=== PATIENT | female | born 1945 | race Caucasian/White ===

== ENCOUNTER → 2017-01-01 | Outpatient (REF) | payer MEDICARE ==
[~2017-01-01] MED LIST: AMIT10TA PO; ASPI1TAB PO; CLON0.5T PO; DULC10SU2 PR; DULO30CA PO; FLEEENE4 PR; FLUC100T PO; FLUC150T PO; LISI-538 PO; MEGE40TA PO; MICR10CA PO; REQU1TAB14 PO; RISP0.5T16 PO; ROPI0.25 PO; SENN8.6T7 PO; VESI5TAB PO
== END ==
LOC: M LAB REF 16:43
PROVIDERS: ATTEND Nurse Practitioner Family
DX: M54.5 Low back pain (principal); R82.99 Other abnormal findings in urine

== ENCOUNTER → 2017-03-10 | Outpatient (REF) | payer MEDICARE ==
[~2017-03-10] MED LIST changes: -MEGE40TA PO; +MEGE40TA18 PO
[2017-03-11 14:18] LABS: SJOGREN'S ANTI SS-A <0.2 AI (0.0-0.9); SJOGREN'S ANTI SS-B <0.2 AI (0.0-0.9)
== END ==
LOC: M LAB REF 13:34
PROVIDERS: ATTEND Nurse Practitioner Adult Health
DX: I73.00 Raynaud's syndrome without gangrene (principal)

== ENCOUNTER 2017-04-18 12:18 | Inpatient (IN) | payer MEDICARE ==
[~2017-04-18] VITALS: Ht 154.9 cm; Wt 35.9 kg
[2017-04-18] VITALS (11 sets, daily range): BP systolic 122–162; BP diastolic 62–117
[~2017-04-18 12:18] MED LIST changes: -RISP0.5T16 PO; +RISP0.5T21 PO; -VESI5TAB PO; +VESI5TAB2 PO
[2017-04-18] MEDS ORDERED: MIRT15TA3 (12:39)
[2017-04-18] MEDS ORDERED: ROPI0.25 (12:39)
[2017-04-18] MEDS ORDERED: DONE5TAB17 (12:39)
[2017-04-18] MEDS ORDERED: ONDANSETRON 4MG/2ML VIAL (J2405) As Ordered ONE (12:45)
[2017-04-18 13:00] LABS: BASO % 0.3 % (0.0-1.0); EOS % 0.2 % (0.0-3.0); LARGE UNSTAINED CELL % 0.5 % (0.0-4.0); LYMPH # 0.7 K/mm3 (1.5-4.5); LYMPH % 11.3 % (24.0-44.0); MONO # 0.2 K/mm3 (0.0-0.8); MONO % 3.6 % (0.0-5.0); NEUTROPHILS # 4.9 K/mm3 (1.8-7.7); NEUTROPHILS % 84.2 % (36.0-66.0); PLATELET COUNT, AUTOMATED 183 k/mm3 (150-450); RED CELL DISTRIBUTION WIDTH 12.6 % (11.5-14.5); WHITE BLOOD COUNT 5.8 K/mm3 (4.0-10.0)
--- NOTE | 2017-04-18 13:07 | REP ---
Chest one-view HISTORY: Altered mental status Comparison: 03/04/2015 Patchy density is present in the right lower lobe consistent with atelectasis or infiltrate. The left lung is clear. The heart is normal in size. The pulmonary vasculature is normal in appearance. Impression: Right lower lobe atelectasis or infiltrate. Signed by Soto Cruz MD 04/18/2017 12:59 P
[2017-04-18 13:10] LABS: ALBUMIN 3.6 GM/DL (3.2-5.2); ALBUMIN/GLOBULIN RATIO 1.24 (1.00-1.93); ALKALINE PHOSPHATASE 108 U/L (45-117); ALT/SGPT 24 U/L (12-78); ANION GAP 9 MEQ/L (8-16); AST/SGOT 22 U/L (15-37); BILIRUBIN,DIRECT 0.1 MG/DL (0.0-0.2); BILIRUBIN,TOTAL 0.4 MG/DL (0.2-1.0); BLOOD UREA NITROGEN 18 MG/DL (7-18); CARBON DIOXIDE LEVEL 27 MEQ/L (21-32); CHLORIDE LEVEL 103 MEQ/L (98-107); CREATININE FOR GFR 0.64 MG/DL (0.55-1.02); GLOMERULAR FILTRATION RATE > 60.0 (>39); GLUCOSE, FASTING 218 MG/DL (83-110); POTASSIUM SERUM 3.3 MEQ/L (3.5-5.1); SODIUM LEVEL 139 MEQ/L (136-145); TOTAL PROTEIN 6.5 GM/DL (6.4-8.2)
[2017-04-18] MEDS ORDERED: ONDANSETRON 4MG/2ML VIAL (J2405) IV ONE (13:15)
[2017-04-18] MEDS ORDERED: IPRATROPIUM 0.5MG/ALBUTEROL 2.5MG INH SOL UD 3ML (DUONEB)(J7620) NEB ONE (13:15)
[2017-04-18 13:21] LABS: METHADONE URINE NEGATIVE (NEGATIVE)
[2017-04-18 13:21] LABS: ABG BASE EXCESS 0.8 (-2.0-2.0); ABG HCO3 27.4 MEQ/L (22.0-26.0); ABG PARTIAL PRESSURE CO2 51.4 mmHg (35.0-45.0); ABG PARTIAL PRESSURE O2 58.5 mmHg (75.0-100.0); ABG TOTAL CO2 28.9 MEQ/L (23.0-31.0); ABG pH (ARTERIAL) 7.344 UNITS (7.350-7.450)
[2017-04-18] MEDS ORDERED: PATIENT COMMENT (13:53)
[2017-04-18] MEDS ORDERED: ROPI0.25 PO (13:53)
[2017-04-18] MEDS ORDERED: MIRT15TA3 PO (13:53)
[2017-04-18] MEDS ORDERED: DULO1CAP3 PO (13:53)
[2017-04-18] MEDS ORDERED: SENN8.6T7 PO (13:53)
[2017-04-18] MEDS ORDERED: DONE5TAB17 PO (13:53)
[2017-04-18] MEDS ORDERED: CLON0.5T PO (13:53)
[2017-04-18] MEDS ORDERED: DULC5TAB PO (13:53)
[2017-04-18] MEDS ORDERED: PIPERACILLIN/TAZOBACTAM SOD 3.375 GM in D5W MINI-BAG PLUS 50 ML IV ONE (14:00)
--- NOTE | 2017-04-18 14:31 | REP ---
CT HEAD WITHOUT CONTRAST: HISTORY: Altered mental status. COMPARISON: 03/04/2016 Areas of decreased attenuation are present in the periventricular and subcortical white matter. This represents small vessel ischemic disease. There is no intraparenchymal hemorrhage, mass or midline shift. The ventricular system and cortical sulci are dilated consistent with mild volume loss. There is no extracerebral collection. The visualized sinuses are clear. IMPRESSION: 1. Small vessel ischemic disease. 2. Mild volume loss. Signed by Soto Cruz MD 04/18/2017 02:43 P
--- NOTE | 2017-04-18 14:33 | REP ---
CT CERVICAL SPINE WITHOUT CONTRAST: HISTORY: Altered mental status. There is no acute fracture or subluxation. Disc bulges are present at the C2-3 through C6-7 levels. There is minimal narrowing of the spinal canal. The neural foramina are patent. The intervertebral discs are normal in height. IMPRESSION: 1. There is no acute fracture or subluxation. 2. There is cervical spondylosis at the C2-3 through C6-7 levels. Signed by Soto Cruz MD 04/18/2017 02:43 P
[2017-04-18 15:17] LABS: ABG BASE EXCESS -0.6 (-2.0-2.0); ABG HCO3 24.6 MEQ/L (22.0-26.0); ABG PARTIAL PRESSURE CO2 42.6 mmHg (35.0-45.0); ABG PARTIAL PRESSURE O2 141.2 mmHg (75.0-100.0); ABG TOTAL CO2 25.9 MEQ/L (23.0-31.0)
[2017-04-18] MEDS: D5W/0.9% SODIUM CHLORIDE 1,000 ML IV SCH (17:06)
--- NOTE | 2017-04-18 17:12 | REP ---
Chest one-view HISTORY: Shortness of breath Comparison: 04/18/2017 Patchy density is present in the right lower lobe consistent with an infiltrate that is increased compared to the previous study. The left lung is clear. The heart is normal in size. The pulmonary vasculature is normal in appearance. Impression: Right lower lobe infiltrate increased compared to the previous study. Signed by Soto Cruz MD 04/18/2017 05:04 P
[2017-04-18 17:42] LABS: ABG HCO3 22.5 MEQ/L (22.0-26.0); ABG PARTIAL PRESSURE CO2 37.7 mmHg (35.0-45.0); ABG PARTIAL PRESSURE O2 294.3 mmHg (75.0-100.0); ABG STANDARD HCO3 22.8 MEQ/L (22.0-26.0); ABG TOTAL CO2 23.6 MEQ/L (23.0-31.0); ABG pH (ARTERIAL) 7.393 UNITS (7.350-7.450)
[2017-04-18] MEDS: PANTOPRAZOLE 40MG INJ (PROTONIX) (C9113) IV SCH (17:58)
[2017-04-18] MEDS: methylPREDNISolone INJ 40 MG/1 ML VIAL (J2920) IV SCH (17:59)
[2017-04-18] MEDS ORDERED: KCL 10MEQ IN 100ML SWI (KRUN) 10 MEQ in APPROPRIATE DILUENT 1 EA IV ONE ×2 (18:00)
[2017-04-18] MEDS: IPRATROPIUM 0.5MG/ALBUTEROL 2.5MG INH SOL UD 3ML (DUONEB)(J7620) NEB SCH (19:33)
--- NOTE | 2017-04-18 19:33 | ECGEPIP ---
Stationary ECG Study [facility] - ED Test Date: 2017-04-18 Pat Name: JORDI HERRERA Department: Room: - Gender: F [employer] Manager: TRENT : 1945 Requested By: JANNETH Blum Order Number: [id number] Reading MD: Yvette Luciano Measurements Intervals [place] Rate: 76 P: 82 VA: 133 QRS: 18 QRSD: 90 T: 87 QT: 334 QTc: 377 Interpretive Statements SINUS RHYTHM WITH SINUS ARRHYTHMIA NONSPECIFIC T-WAVE ABNORMALITY BASELINE ARTIFACT AND WANDERING MAY AFFECT READING DELAYED R WAVE PROGRESSION CW 03/04/15 RATE DCEREASED Electronically Signed On 04-18-2017 19:33:03 EDT by Yvette Luciano
[2017-04-18] MEDS: AMPICILLIN SOD/SULBACTAM SOD 1.5 GM in D5W MINI-BAG PLUS 50 ML IV SCH (20:51)
[2017-04-18] MEDS: CHLORHEXIDINE GLUCONATE 0.12 % 15ML UDC (PERIDEX ORAL RINSE) MT SCH (20:51)
[2017-04-18] MEDS: HEPARIN SOD (PORCINE) 5000 UNITS/ML VIAL SC SCH (21:00)
--- NOTE | 2017-04-18 21:08 | HPE ---
DATE OF ADMISSION: 04/18/2017 CRITICAL CARE NOTE HISTORY AND PHYSICAL: I was called to the emergency department to evaluate this 71-year-old female found earlier in the day by her daughter with whom she lives. The patient was face-down on the kitchen floor in a pool of vomitus. She has dementia which waxes and wanes but has had no prior similar episodes. Her past medical history in addition to dementia includes Parkinson's disease and a history of tobacco use. In the emergency department, her oxygen levels were found low. Continuous positive airway pressure (C-PAP) was applied with initial good result. However, attempts to change back to supplemental oxygen were unsuccessful and were met with falling oxygen saturations. OBJECTIVE: GENERAL: At bedside, she is ill-appearing, cachectic, elderly-appearing woman. VITAL SIGNS: Temperature 97, pulse rate 93, respirations 18, blood pressure 186/75. She is nonverbal, purposeful Boaz coma scale of 12. HEENT: Her pupils are midline and reactive. Oral and nasal mucosa are dry. NECK: Neck is supple with limited range of motion. There is no meningismus. Jugular veins are not distended. HEART: Sounds are regular, somewhat distant. LUNGS: Breath sounds globally diminished with dullness in the right base and some scattered rhonchi. The patient's chest is markedly kyphotic and there is limited respiratory excursion with respiratory efforts. Chest is increased in its AP diameter. ABDOMEN: Soft. There are bowel sounds in the right lower quadrant. There is no palpable mass. EXTREMITIES: Are cool. Pulses are difficult but palpable. There is evidence of muscle wasting. LABORATORY DATA: Diagnostic studies were reviewed: Her sodium is 139, potassium 3.3, chloride 103 , CO2 27, BUN 18, creatinine 0.64, glucose is 218, lactic acid 2.4, calcium is 9 with an albumin of 3.6, bilirubin 0.4, AST of 22, ALT 24, alkaline phosphatase 108, troponin less than 0.02. Ammonia level was less than 10. White cell count is 5.8, hemoglobin 13.1, hematocrit 39.7, platelet count 183,000. Differential white cell count shows 84% neutrophils. Toxicology was negative for opiates, benzodiazepines, alcohol, acetaminophen, salicylates. An arterial blood gas showed a pH 7.34, pCO2 of 51, pO2 58, this on C-PAP with 100% entrained oxygen. IMAGING: Chest x-ray initially showed a new right lower lobe infiltrate in the pericardiac region. Other lobes of the lungs were clear. We obtained a subsequent chest x-ray now which shows progression of the infiltrate with significant increase and involvement of the right lower lobe, possibly right middle lobe and some accentuation of the vascular markings. There is also increase in the gastric air bubble. ASSESSMENT: 1. The primary problem requiring critical attention is acute hypoxic respiratory failure secondary to an episode of aspiration pneumonia with progression on chest x-rays. The progression has been limited to the right lower lobe for the most part; however, the patient is at significant risk for acute respiratory distress syndrome (ARDS) and further respiratory failure. Will initiate noninvasive positive pressure ventilation at this point and recheck an arterial blood gas. 2. Possible drug overdose/ingestion. The patient's daughter also found her medication bottles empty. They were near empty previously. She believes the patient may have ingested the remainder of her pills. Of concern would be Remeron, Klonopin and ropinirole. Urine is, however, negative for benzodiazepines. Close observation will be necessary. 4. She is mildly hypokalemic; will replace potassium and recheck electrolytes. 5. As she will be immobile for the next interval of time, will initiate deep venous thrombosis (DVT) prophylaxis with subcutaneous heparin. 6. Ulcer prophylaxis will be provided in light of her critical illness with IV Protonix. 7. Glycemic control is a question. She is not known to be a diabetic. Her blood sugar was elevated, likely related to stress. Will continue to monitor this. I have reviewed the case with the emergency department physician and the intensive care unit (ICU) staff. We will now facilitate transfer to the intensive care unit for close clinical monitoring. The patient's condition is critical. Prognosis is guarded. I have updated the patient's family who are aware of her prognosis. 87 minutes were spent in the provision of bedside critical care and coordination , exclusive of any time for the performance of procedures. Edited: chu 06/23/2017 1055 MTDD
[2017-04-19] VITALS (18 sets, daily range): BP systolic 110–161; BP diastolic 55–101; O2SAT 95
[2017-04-19] MEDS: AMPICILLIN SOD/SULBACTAM SOD 1.5 GM in D5W MINI-BAG PLUS 50 ML IV SCH ×4 (01:37→20:01)
[2017-04-19 04:50] LABS: LARGE UNSTAINED CELL # 0.1 K/mm3 (0.0-0.4); LARGE UNSTAINED CELL % 0.8 % (0.0-4.0); LYMPH # 0.6 K/mm3 (1.5-4.5); LYMPH % 3.9 % (24.0-44.0); MEAN CORPUSCULAR HEMOGLOBIN 30.3 pg (27.0-33.0); MEAN CORPUSCULAR HGB CONC 33.5 g/dl (32.0-36.5); MEAN CORPUSCULAR VOLUME 90.7 fl (80.0-96.0); MONO # 0.3 K/mm3 (0.0-0.8); MONO % 2.3 % (0.0-5.0); NEUTROPHILS # 13.8 K/mm3 (1.8-7.7); PLATELET COUNT, AUTOMATED 209 k/mm3 (150-450); RED CELL DISTRIBUTION WIDTH 12.5 % (11.5-14.5); WHITE BLOOD COUNT 14.9 K/mm3 (4.0-10.0)
[2017-04-19 04:53] LABS: ALKALINE PHOSPHATASE 83 U/L (45-117); ALT/SGPT 20 U/L (12-78); ANION GAP 10 MEQ/L (8-16); AST/SGOT 18 U/L (15-37); BILIRUBIN,TOTAL 0.7 MG/DL (0.2-1.0); BLOOD UREA NITROGEN 21 MG/DL (7-18); CALCIUM LEVEL 8.9 MG/DL (8.8-10.2); CARBON DIOXIDE LEVEL 26 MEQ/L (21-32); CHLORIDE LEVEL 104 MEQ/L (98-107); CHOLESTEROL LEVEL 141 MG/DL (< 200); CREATININE FOR GFR 0.71 MG/DL (0.55-1.02); GLOMERULAR FILTRATION RATE > 60.0 (>39); GLUCOSE, FASTING 173 MG/DL (83-110); PHOSPHORUS LEVEL 3.3 MG/DL (2.5-4.9); POTASSIUM SERUM 4.3 MEQ/L (3.5-5.1); SODIUM LEVEL 140 MEQ/L (136-145); TRIGLYCERIDES LEVEL 58 MG/DL (<150)
[2017-04-19 05:31] LABS: ABG BASE EXCESS 2.5 (-2.0-2.0); ABG HCO3 26.6 MEQ/L (22.0-26.0); ABG PARTIAL PRESSURE CO2 39.1 mmHg (35.0-45.0); ABG PARTIAL PRESSURE O2 181.9 mmHg (75.0-100.0); ABG STANDARD HCO3 26.8 MEQ/L (22.0-26.0); ABG TOTAL CO2 27.8 MEQ/L (23.0-31.0)
[2017-04-19] MEDS: HEPARIN SOD (PORCINE) 5000 UNITS/ML VIAL SC SCH ×3 (05:32→21:28)
--- NOTE | 2017-04-19 07:29 | REP ---
Portable chest, 04/19/2017, 07:01 a.m., single AP view the patient semi upright: Comparison 04/18/2017. The previous infiltrate identified inferiorly in the right lung has decreased in density and size. The remainder of the right lung is clear. Left lung is clear. Cardiac size appears normal. The patient is rotated. There are no pleural effusions. Impression: The right lung infiltrate has improved. Signed by Mason Barakat MD 04/19/2017 07:20 A
[2017-04-19] MEDS: IPRATROPIUM 0.5MG/ALBUTEROL 2.5MG INH SOL UD 3ML (DUONEB)(J7620) NEB SCH ×4 (08:00→20:16)
[2017-04-19] MEDS: CHLORHEXIDINE GLUCONATE 0.12 % 15ML UDC (PERIDEX ORAL RINSE) MT SCH (08:19)
[2017-04-19] MEDS: PANTOPRAZOLE 40MG INJ (PROTONIX) (C9113) IV SCH (08:20)
[2017-04-19] MEDS: methylPREDNISolone INJ 40 MG/1 ML VIAL (J2920) IV SCH (08:20)
[2017-04-19] MEDS: D5W/0.9% SODIUM CHLORIDE 1,000 ML IV SCH (12:52)
[2017-04-20] MEDS: AMPICILLIN SOD/SULBACTAM SOD 1.5 GM in D5W MINI-BAG PLUS 50 ML IV SCH ×4 (01:21→19:56)
[2017-04-20 05:00] VITALS: BP 184/82
[2017-04-20 05:17] LABS: BASO % 0.1 % (0.0-1.0); EOS % 0.1 % (0.0-3.0); LARGE UNSTAINED CELL # 0.2 K/mm3 (0.0-0.4); LARGE UNSTAINED CELL % 1.5 % (0.0-4.0); LYMPH # 1.3 K/mm3 (1.5-4.5); LYMPH % 11.5 % (24.0-44.0); MEAN CORPUSCULAR HEMOGLOBIN 30.6 pg (27.0-33.0); MEAN CORPUSCULAR HGB CONC 33.8 g/dl (32.0-36.5); MEAN CORPUSCULAR VOLUME 90.6 fl (80.0-96.0); MONO # 0.5 K/mm3 (0.0-0.8); MONO % 4.4 % (0.0-5.0); NEUTROPHILS # 8.6 K/mm3 (1.8-7.7); NEUTROPHILS % 82.4 % (36.0-66.0); PLATELET COUNT, AUTOMATED 164 k/mm3 (150-450); RED CELL DISTRIBUTION WIDTH 12.8 % (11.5-14.5); WHITE BLOOD COUNT 10.4 K/mm3 (4.0-10.0)
[2017-04-20] MEDS: HEPARIN SOD (PORCINE) 5000 UNITS/ML VIAL SC SCH ×3 (05:31→22:22)
[2017-04-20] MEDS: D5W/0.9% SODIUM CHLORIDE 1,000 ML IV SCH ×2 (05:31→23:46)
[2017-04-20 05:45] LABS: ALBUMIN 2.7 GM/DL (3.2-5.2); ALBUMIN/GLOBULIN RATIO 0.84 (1.00-1.93); ALKALINE PHOSPHATASE 69 U/L (45-117); ALT/SGPT 20 U/L (12-78); ANION GAP 5 MEQ/L (8-16); AST/SGOT 26 U/L (15-37); BILIRUBIN,TOTAL 0.4 MG/DL (0.2-1.0); BLOOD UREA NITROGEN 18 MG/DL (7-18); CALCIUM LEVEL 8.8 MG/DL (8.8-10.2); CARBON DIOXIDE LEVEL 28 MEQ/L (21-32); CHLORIDE LEVEL 108 MEQ/L (98-107); CHOLESTEROL LEVEL 138 MG/DL (< 200); CREATININE FOR GFR 0.52 MG/DL (0.55-1.02); GLOMERULAR FILTRATION RATE > 60.0 (>39); GLUCOSE, FASTING 98 MG/DL (83-110); PHOSPHORUS LEVEL 2.3 MG/DL (2.5-4.9); SODIUM LEVEL 141 MEQ/L (136-145); TOTAL PROTEIN 5.9 GM/DL (6.4-8.2); TRIGLYCERIDES LEVEL 93 MG/DL (<150)
[2017-04-20] MEDS: IPRATROPIUM 0.5MG/ALBUTEROL 2.5MG INH SOL UD 3ML (DUONEB)(J7620) NEB SCH ×4 (07:50→20:05)
[2017-04-20 08:00] VITALS: BP 172/88
--- NOTE | 2017-04-20 08:03 | REP ---
Portable chest, 04/20/2017, 07:19 a.m., single AP view the patient semi upright: Comparison is 04/19/2017. The patient is rotated. The infiltrate inferiorly in the right lung is unchanged. The remainder of the right lung is clear. Visualized left lung is clear. Cardiac size is normal. Impression: No interval change. Patient rotated. Signed by Mason Barakat MD 04/20/2017 07:54 A
[2017-04-20] MEDS: PANTOPRAZOLE 40MG INJ (PROTONIX) (C9113) IV SCH (08:45)
[2017-04-20] MEDS: methylPREDNISolone INJ 40 MG/1 ML VIAL (J2920) IV SCH (08:45)
[2017-04-20] MEDS: ACETAMINOPHEN TAB 650MG DOSE (2X325MG) PO PRN (11:57)
[2017-04-20 12:00] VITALS: BP 166/78
[2017-04-20 16:00] VITALS: BP 158/72
--- NOTE | 2017-04-20 16:32 | IPN ---
DATE: 04/20/2017 Ms. Chi has no complaints of pain, chest pain, shortness of breath this morning. She does not know the year. She thinks it is 2019. She does not know the current president. She does know she is at [facility] in [place] , and she knows that she has pneumonia, although she forgets it intermittently. Temperature is 99.4, pulse 80, respiratory rate 18, blood pressure 172/88, 96% on room air. Intake and output notable for a positive fluid balance of 720. Weight is 44.2 kg. She is awake and answering questions. No acute distress. Breathing is symmetrical, diminished throughout. Inspiratory to expiratory (I-to-E) ratio is 1:3. No wheezes. Heart is distant sounding. Radial pulses 2+. Capillary refill is less than 2 seconds. Abdomen soft, doughy, nontender. White cell count 10.4, hemoglobin 12, platelets of 164. BUN 18, creatinine 0.52. CK 220. Blood cultures negative at 48 hours. ASSESSMENT: This is a 71-year-old with acute hypoxic respiratory failure status post aspiration pneumonia, thought possibly related to unintentional overdose. PLAN: 1. Respiratory failure. Patient has aspiration pneumonia and is continued on antibiotics. It has improved. Has been seen by speech therapy today and is thought to have impaired swallow, which could possibly complicate her presentation. She did have elevated temperature. Blood cultures have been negative. Continue current therapy. 2. Patient was thought to possibly have unintentional drug overdose and likely has dementia. Will possibly require placement. 3. Patient has hypokalemia, which has resolved. 4. The patient's blood glucose was elevated during the course of her stay. Appears to be more reasonably controlled currently. 5. Deep vein thrombosis (DVT) prophylaxis is in the form of subcutaneous heparin. MTDD
[2017-04-20 20:00] VITALS: BP 171/86
[2017-04-21] VITALS (7 sets, daily range): BP systolic 141–170; BP diastolic 58–98
[2017-04-21] MEDS: AMPICILLIN SOD/SULBACTAM SOD 1.5 GM in D5W MINI-BAG PLUS 50 ML IV SCH ×4 (02:00→21:21)
[2017-04-21 05:53] LABS: BASO % 0.2 % (0.0-1.0); EOS % 0.1 % (0.0-3.0); LARGE UNSTAINED CELL # 0.2 K/mm3 (0.0-0.4); LARGE UNSTAINED CELL % 1.5 % (0.0-4.0); LYMPH % 9.4 % (24.0-44.0); MEAN CORPUSCULAR HEMOGLOBIN 30.8 pg (27.0-33.0); MEAN CORPUSCULAR HGB CONC 34.4 g/dl (32.0-36.5); MEAN CORPUSCULAR VOLUME 89.5 fl (80.0-96.0); MONO # 0.5 K/mm3 (0.0-0.8); MONO % 4.7 % (0.0-5.0); NEUTROPHILS # 8.7 K/mm3 (1.8-7.7); PLATELET COUNT, AUTOMATED 212 k/mm3 (150-450); RED CELL DISTRIBUTION WIDTH 12.3 % (11.5-14.5); WHITE BLOOD COUNT 10.3 K/mm3 (4.0-10.0)
[2017-04-21 06:04] LABS: ALBUMIN 3.1 GM/DL (3.2-5.2); ALBUMIN/GLOBULIN RATIO 0.84 (1.00-1.93); ALKALINE PHOSPHATASE 82 U/L (45-117); ALT/SGPT 25 U/L (12-78); ANION GAP 7 MEQ/L (8-16); AST/SGOT 27 U/L (15-37); BILIRUBIN,TOTAL 0.5 MG/DL (0.2-1.0); BLOOD UREA NITROGEN 10 MG/DL (7-18); CALCIUM LEVEL 8.9 MG/DL (8.8-10.2); CARBON DIOXIDE LEVEL 28 MEQ/L (21-32); CHLORIDE LEVEL 104 MEQ/L (98-107); CHOLESTEROL LEVEL 168 MG/DL (< 200); CREATININE FOR GFR 0.48 MG/DL (0.55-1.02); GLOMERULAR FILTRATION RATE > 60.0 (>39); GLUCOSE, FASTING 97 MG/DL (83-110); PHOSPHORUS LEVEL 1.7 MG/DL (2.5-4.9); POTASSIUM SERUM 3.4 MEQ/L (3.5-5.1); SODIUM LEVEL 139 MEQ/L (136-145); TOTAL PROTEIN 6.8 GM/DL (6.4-8.2); TRIGLYCERIDES LEVEL 102 MG/DL (<150)
[2017-04-21] MEDS: HEPARIN SOD (PORCINE) 5000 UNITS/ML VIAL SC SCH ×3 (06:04→21:22)
--- NOTE | 2017-04-21 07:40 | REP ---
Portable chest, single AP view, the patient semi upright, 07:16 a.m.: Comparisons are 04/20/2017 and 04/19/2017. Focal and creased density is again noted inferiorly in the right lung compatible with infiltrate, unchanged. The patient is rotated. The lung martinez otherwise clear. Cardiac size normal. The laquita, mediastinum, and bony thorax are unremarkable. Impression: Persisting focal increased density inferiorly in the right lung. Patient rotated. Signed by Mason Barakat MD 04/21/2017 07:31 A
[2017-04-21] MEDS: methylPREDNISolone INJ 40 MG/1 ML VIAL (J2920) IV SCH (08:26)
[2017-04-21] MEDS: PANTOPRAZOLE 40MG INJ (PROTONIX) (C9113) IV SCH (08:26)
[2017-04-21] MEDS: K-PHOS ORIGINAL (POT.ACID PHOSPHATE) 500MG TAB PO SCH ×2 (08:27→11:57)
[2017-04-21] MEDS: IPRATROPIUM 0.5MG/ALBUTEROL 2.5MG INH SOL UD 3ML (DUONEB)(J7620) NEB SCH ×4 (09:04→19:16)
[2017-04-21 15:06] LABS: ANION GAP 7 MEQ/L (8-16); BLOOD UREA NITROGEN 12 MG/DL (7-18); CALCIUM LEVEL 9.2 MG/DL (8.8-10.2); CARBON DIOXIDE LEVEL 27 MEQ/L (21-32); CHLORIDE LEVEL 104 MEQ/L (98-107); CREATININE FOR GFR 0.58 MG/DL (0.55-1.02); GLOMERULAR FILTRATION RATE > 60.0 (>39); GLUCOSE, FASTING 150 MG/DL (83-110); PHOSPHORUS LEVEL 3.1 MG/DL (2.5-4.9); POTASSIUM SERUM 3.7 MEQ/L (3.5-5.1); SODIUM LEVEL 138 MEQ/L (136-145)
[2017-04-22] MEDS: AMPICILLIN SOD/SULBACTAM SOD 1.5 GM in D5W MINI-BAG PLUS 50 ML IV SCH ×4 (02:08→20:19)
[2017-04-22 05:45] LABS: BASO % 0.3 % (0.0-1.0); EOS % 0.1 % (0.0-3.0); LARGE UNSTAINED CELL # 0.1 K/mm3 (0.0-0.4); LARGE UNSTAINED CELL % 1.7 % (0.0-4.0); LYMPH # 1.6 K/mm3 (1.5-4.5); MEAN CORPUSCULAR HGB CONC 33.5 g/dl (32.0-36.5); MEAN CORPUSCULAR VOLUME 89.7 fl (80.0-96.0); MONO # 0.4 K/mm3 (0.0-0.8); MONO % 5.7 % (0.0-5.0); NEUTROPHILS # 5.3 K/mm3 (1.8-7.7); NEUTROPHILS % 72.3 % (36.0-66.0); PLATELET COUNT, AUTOMATED 208 k/mm3 (150-450); RED CELL DISTRIBUTION WIDTH 12.6 % (11.5-14.5); WHITE BLOOD COUNT 7.3 K/mm3 (4.0-10.0)
[2017-04-22] MEDS: HEPARIN SOD (PORCINE) 5000 UNITS/ML VIAL SC SCH ×3 (05:56→22:08)
[2017-04-22 06:00] VITALS: BP 132/71
[2017-04-22 06:07] LABS: ALBUMIN 2.8 GM/DL (3.2-5.2); ALBUMIN/GLOBULIN RATIO 0.82 (1.00-1.93); ALKALINE PHOSPHATASE 72 U/L (45-117); ALT/SGPT 25 U/L (12-78); ANION GAP 6 MEQ/L (8-16); AST/SGOT 23 U/L (15-37); BILIRUBIN,TOTAL 0.5 MG/DL (0.2-1.0); BLOOD UREA NITROGEN 20 MG/DL (7-18); CALCIUM LEVEL 9.1 MG/DL (8.8-10.2); CARBON DIOXIDE LEVEL 29 MEQ/L (21-32); CHLORIDE LEVEL 109 MEQ/L (98-107); CHOLESTEROL LEVEL 157 MG/DL (< 200); CREATININE FOR GFR 0.61 MG/DL (0.55-1.02); GLOMERULAR FILTRATION RATE > 60.0 (>39); GLUCOSE, FASTING 85 MG/DL (83-110); PHOSPHORUS LEVEL 3.4 MG/DL (2.5-4.9); POTASSIUM SERUM 3.9 MEQ/L (3.5-5.1); SODIUM LEVEL 144 MEQ/L (136-145); TOTAL PROTEIN 6.2 GM/DL (6.4-8.2); TRIGLYCERIDES LEVEL 98 MG/DL (<150)
[2017-04-22] MEDS: IPRATROPIUM 0.5MG/ALBUTEROL 2.5MG INH SOL UD 3ML (DUONEB)(J7620) NEB SCH ×4 (07:29→19:49)
--- NOTE | 2017-04-22 09:04 | IPN ---
DATE: 04/21/2017 Ms. Chi has no complaints of pain this morning. She is able to tell me she is in the hospital in [place]. She can tell me that the president is the really rich man but cannot remember his name. She has no complaints of pain or chest pain. She is tolerating her diet but does not seem to be taking too much yesterday. Took some more today. Input and output notable for negative fluid status. Pulse 86, respiratory rate 18, blood pressure 162/58, 96% on room air. Temperature 98. She is awake at the time of my arrival. No acute distress. Breathing is symmetrically diminished with coarse upper airway sounds. No wheezes. Heart is distant sounding. Abdomens soft, doughy, nontender. White blood cell count 10.3, hemoglobin 13.7, platelets 212. BUN 12, creatinine 0.58, phosphorus level 3.1, potassium 3.7. Repeat chest x-ray today: Inferior right lower lobe infiltrate. ASSESSMENT: 71-year-old with acute hypoxic respiratory failure secondary to aspiration pneumonia, possibly non-intentional overdose. PLAN: 1. Respiratory failure. Patient had aspiration pneumonia. Continue antibiotics. Clinically improved. Did fail swallow evaluation. Is tolerating currently modified diet. 2. Patient had unintentional drug overdose and likely has dementia. Will require placement. 3. Patient has resolved hypokalemia and hypophosphatemia which was repleted today. 4. Patient has appropriate deep venous thrombosis (DVT) prophylaxis. 5. Patient can likely be transferred to the medical/surgical floor.
[2017-04-22] MEDS: PANTOPRAZOLE 40MG INJ (PROTONIX) (C9113) IV SCH (09:57)
[2017-04-22] MEDS: methylPREDNISolone INJ 40 MG/1 ML VIAL (J2920) IV SCH (09:57)
[2017-04-22 14:00] VITALS: BP 150/72
--- NOTE | 2017-04-22 17:52 | IPN ---
DATE: 04/22/2017 Miss Chi has no complaints this morning. She is not aware of where she is, but she is reminded that she is in the hospital. She cannot remember who the president is today. No complaints of pain, chest pain, shortness of breath. Has been requiring help with her diet. Temperature 98.7, pulse 63, respirations 16, blood pressure 132/71, 96% on room air. Intake and output (I and O) notable for negative fluid balance of -630. One bowel movement thus far today. She is awake, answering simple questions appropriately and following commands. Mucous membranes moist. Neck is supple. She has a fine tremor with some eye blinking, which appears to be somewhat excessive. Abdomen: Soft, doughy, nontender. White cell count 7.3, hemoglobin 12.3, BUN 20, creatinine 0.61. Pre-albumin 14.5. ASSESSMENT: 71-year-old with acute hypoxic respiratory failure secondary to aspiration pneumonia, possibly non-intentional overdose. PLAN: 1. Respiratory failure. The patient has aspiration pneumonia. Continue current antibiotics. Clinically improving. Failed swallow evaluation. Is on a modified diet with which she is requiring some prompting to take. 2. The patient with unintentional drug overdose and is thought to have dementia. Will require placement. 3. The patient has resolved hypokalemia. 4. The patient has indwelling Díaz catheter which will be removed today. 5. The patient has what would appear to be protein calorie malnutrition with relatively low BMI and low pre-albumin.
[2017-04-22 22:00] VITALS: BP 149/68
[2017-04-23] MEDS: AMPICILLIN SOD/SULBACTAM SOD 1.5 GM in D5W MINI-BAG PLUS 50 ML IV SCH ×4 (02:19→20:21)
[2017-04-23] MEDS: HEPARIN SOD (PORCINE) 5000 UNITS/ML VIAL SC SCH ×3 (05:43→22:00)
[2017-04-23 06:00] VITALS: BP 138/70
[2017-04-23 06:04] LABS: BASO % 0.2 % (0.0-1.0); EOS % 0.1 % (0.0-3.0); LARGE UNSTAINED CELL # 0.1 K/mm3 (0.0-0.4); LARGE UNSTAINED CELL % 2.5 % (0.0-4.0); LYMPH % 17.8 % (24.0-44.0); MEAN CORPUSCULAR HEMOGLOBIN 29.9 pg (27.0-33.0); MEAN CORPUSCULAR HGB CONC 33.4 g/dl (32.0-36.5); MEAN CORPUSCULAR VOLUME 89.4 fl (80.0-96.0); MONO # 0.4 K/mm3 (0.0-0.8); MONO % 6.6 % (0.0-5.0); NEUTROPHILS # 4.2 K/mm3 (1.8-7.7); NEUTROPHILS % 72.8 % (36.0-66.0); PLATELET COUNT, AUTOMATED 230 k/mm3 (150-450); RED CELL DISTRIBUTION WIDTH 12.2 % (11.5-14.5); WHITE BLOOD COUNT 5.8 K/mm3 (4.0-10.0)
[2017-04-23 06:29] LABS: ALKALINE PHOSPHATASE 67 U/L (45-117); ALT/SGPT 27 U/L (12-78); ANION GAP 6 MEQ/L (8-16); AST/SGOT 22 U/L (15-37); BILIRUBIN,TOTAL 0.5 MG/DL (0.2-1.0); BLOOD UREA NITROGEN 29 MG/DL (7-18); CALCIUM LEVEL 9.3 MG/DL (8.8-10.2); CARBON DIOXIDE LEVEL 29 MEQ/L (21-32); CHLORIDE LEVEL 105 MEQ/L (98-107); CHOLESTEROL LEVEL 178 MG/DL (< 200); CREATININE FOR GFR 0.57 MG/DL (0.55-1.02); GLOMERULAR FILTRATION RATE > 60.0 (>39); GLUCOSE, FASTING 92 MG/DL (83-110); PHOSPHORUS LEVEL 2.4 MG/DL (2.5-4.9); POTASSIUM SERUM 3.5 MEQ/L (3.5-5.1); SODIUM LEVEL 140 MEQ/L (136-145); TRIGLYCERIDES LEVEL 112 MG/DL (<150)
[2017-04-23] MEDS: IPRATROPIUM 0.5MG/ALBUTEROL 2.5MG INH SOL UD 3ML (DUONEB)(J7620) NEB SCH ×4 (07:26→19:35)
[2017-04-23] MEDS: methylPREDNISolone INJ 40 MG/1 ML VIAL (J2920) IV SCH (08:16)
[2017-04-23] MEDS: PANTOPRAZOLE 40MG INJ (PROTONIX) (C9113) IV SCH (08:16)
[2017-04-23 14:00] VITALS: BP 148/68
[2017-04-23 22:00] VITALS: BP 171/86
[2017-04-24] MEDS: AMPICILLIN SOD/SULBACTAM SOD 1.5 GM in D5W MINI-BAG PLUS 50 ML IV SCH ×4 (02:00→20:06)
[2017-04-24] MEDS: HEPARIN SOD (PORCINE) 5000 UNITS/ML VIAL SC SCH ×3 (05:42→22:00)
[2017-04-24 06:00] VITALS: BP 176/92
[2017-04-24 06:10] LABS: MEAN CORPUSCULAR HEMOGLOBIN 30.6 pg (27.0-33.0); MEAN CORPUSCULAR HGB CONC 34.1 g/dl (32.0-36.5); MEAN CORPUSCULAR VOLUME 89.7 fl (80.0-96.0); RED CELL DISTRIBUTION WIDTH 12.3 % (11.5-14.5); WHITE BLOOD COUNT 5.1 K/mm3 (4.0-10.0)
[2017-04-24] MEDS: IPRATROPIUM 0.5MG/ALBUTEROL 2.5MG INH SOL UD 3ML (DUONEB)(J7620) NEB SCH ×4 (08:00→19:24)
[2017-04-24] MEDS: methylPREDNISolone INJ 40 MG/1 ML VIAL (J2920) IV SCH (08:20)
[2017-04-24] MEDS: PANTOPRAZOLE 40MG INJ (PROTONIX) (C9113) IV SCH (08:20)
[2017-04-24 14:00] VITALS: BP 166/85
--- NOTE | 2017-04-24 21:32 | IPN ---
DATE OF SERVICE: 04/23/2017 Ms. Chi is more awake and interactive this morning. She has no complaints of pain. No chest pain. No shortness of breath. Temperature is 98.9, pulse 105, respiratory rate 18, blood pressure 148/68, 96% on room air. Intake and output (I and O) notable for positive fluid balance of 30 mL. Two bowel movements yesterday. She is awake, appropriately interactive. There is no lip smacking or eye blinking today. Minimal tremor and perhaps more so in her right upper extremity. Breathing is symmetrical, rested. I:E ratio is 1:3. Upper airway sounds. Heart is distant sounding, normal S1, S2. Abdomen soft, doughy, nontender. White cell count 5.8, hemoglobin 12.9, platelets 230, BUN 29, creatinine 0.57. Blood cultures are negative at 5 days. My assessment is as follows: This is a 71-year-old with acute hypoxic respiratory failure secondary to aspiration pneumonia, possibly non-intentional overdose. PLAN: 1. Respiratory failure. The patient is being treated for aspiration pneumonia. Continue antibiotics for now. Respiratory status has stabilized. She has failed swallow evaluation, is on a modified diet, which she is taking better today. 2. The patient with unintentional drug overdose and thought to have baseline dementia. Will require placement. 3. The patient has resolved electrolyte abnormality. 4. The patient has protein calorie malnutrition with low body mass index (BMI).
[2017-04-24 22:00] VITALS: BP 132/85
[2017-04-25] MEDS: AMPICILLIN SOD/SULBACTAM SOD 1.5 GM in D5W MINI-BAG PLUS 50 ML IV SCH ×4 (02:00→20:13)
[2017-04-25 06:00] VITALS: BP 157/79
[2017-04-25] MEDS: HEPARIN SOD (PORCINE) 5000 UNITS/ML VIAL SC SCH ×3 (06:24→20:13)
[2017-04-25] MEDS: IPRATROPIUM 0.5MG/ALBUTEROL 2.5MG INH SOL UD 3ML (DUONEB)(J7620) NEB SCH ×4 (07:27→19:25)
[2017-04-25] MEDS: PANTOPRAZOLE 40MG INJ (PROTONIX) (C9113) IV SCH (08:56)
[2017-04-25] MEDS: methylPREDNISolone INJ 40 MG/1 ML VIAL (J2920) IV SCH (08:56)
[2017-04-25 14:00] VITALS: BP 152/80
--- NOTE | 2017-04-25 15:00 | IPN ---
DATE: 04/24/2017 She is awake and answering questions this morning. She is not a good historian. She is not complaining of pain, chest pain, shortness of breath. She does not know who the President is today. Temperature is 98.3, pulse 70, respiratory rate 18, blood pressure 176/92. She is awake. Following simple commands. Somewhat flattened affect. No significant tremor noted today. Mucous membranes moist. Breathing is symmetrical, rested. Heart is distant sounding. She is thin appearing. Abdomen, soft, scaphoid. White cell count 5.1, hemoglobin 12.8, platelets 201. BUN 29, creatinine 0.57. ASSESSMENT: 71-year-old with acute hypoxic respiratory failure secondary to aspiration pneumonia, possibly unintentional overdose. She is on Unasyn. This would be day #5-6. Can likely discontinue Unasyn tomorrow. Patient with unintentional drug overdose. Though to have dementia. Is planned for placement. Patient has routine calorie malnutrition with low body mass index (BMI), low pre-albumin likely related to dementia and portends a relatively poor prognosis. Hypokalemia has resolved. MTDD
[2017-04-25 22:00] VITALS: BP 147/76
[2017-04-26] MEDS: AMPICILLIN SOD/SULBACTAM SOD 1.5 GM in D5W MINI-BAG PLUS 50 ML IV SCH ×3 (01:59→13:40)
[2017-04-26 06:00] VITALS: BP 154/78
[2017-04-26] MEDS: HEPARIN SOD (PORCINE) 5000 UNITS/ML VIAL SC SCH ×3 (06:00→20:16)
[2017-04-26] MEDS: IPRATROPIUM 0.5MG/ALBUTEROL 2.5MG INH SOL UD 3ML (DUONEB)(J7620) NEB SCH ×4 (07:15→19:45)
[2017-04-26] MEDS: PANTOPRAZOLE 40MG INJ (PROTONIX) (C9113) IV SCH (08:03)
[2017-04-26] MEDS: methylPREDNISolone INJ 40 MG/1 ML VIAL (J2920) IV SCH (08:03)
--- NOTE | 2017-04-26 12:13 | IPN ---
DATE: 04/25/2017 Ms. Chi says she is feeling better today. She feels stronger. She knows that she is in [place], [place]. She does not know she was in the hospital. She knew the President was Antonio Castillo. Temperature is 98.1, pulse 77, respiratory rate 18, blood pressure 157/79, 96% on room air. Intake and output (I's and O's) notable for positive fluid balance 370. No bowel movements noted. She is awake, answering questions appropriately. Was able to stand without assistance. Mucous membranes moist. Neck supple. She is thin appearing. Breathing is symmetrical. I-to-E ratio is 1:3. No wheezes, rales, or rhonchi. Heart is distant sounding. Normal S1, S2. Abdomen, soft, doughy, nontender. White cell count 5.1, hemoglobin 12.8, platelets 201. BUN 29, creatinine 0.57. My assessment is as follows: 71-year-old with acute hypoxic respiratory failure secondary to aspiration pneumonia and possibly nonintentional overdose. 1. Respiratory failure. Patient is being treated for aspiration pneumonia- plan to d/c antibiotics 04/27/17. Antibiotics will likely be discontinued. Currently on a modified diet for a failed swallow evaluation. She seems to be taking reasonable by mouth today. 2. Patient with unintentional drug overdose, thought to have baseline dementia. Plan is to pursue placement. 3. Patient has protein calorie malnutrition with low body mass index. 4. Patient has resolved electrolyte abnormality. MTDD
[2017-04-26 14:00] VITALS: BP 133/63
[2017-04-26] MEDS ORDERED: NEUTRA-PHOS 1.25 GM PACKET PO ONE (15:00)
[2017-04-26] MEDS: rOPINIRole 0.25 MG TAB(REQUIP) PO SCH ×2 (15:30→20:16)
[2017-04-26] MEDS: DONEPEZIL 5 MG TAB PO SCH (20:16)
--- NOTE | 2017-04-26 21:08 | IPN ---
DATE: 04/26/2017 Ms. Chi was feeling a little worse today. She knows that she is at the hospital at [facility], but is unable to tell me who the president is, but she can tell me that she was able to tell me who the president was yesterday, but just cannot remember today. She has no complaints of pain, chest pain, shortness of breath. She says that she has seen Dr. Moon in the past. Temperature 99.1, pulse 84, respiratory rate 18, blood pressure 133/63, 96% on room air. Intake and output notable for a positive fluid balance of 810. No bowel movements yesterday. She is awake, somewhat flat affect, answering simple questions with some pauses in her thought. Mucous membranes are moist. Neck is supple. Breathing is symmetrical. I:E ratio is 1:3. Heart is distant sounding, normal S1, S2. Abdomen soft, doughy, nontender. There is no significant lower extremity edema. White count 5.1, creatinine 0.57, phosphorous is 2.4. My assessment is as follows: 71-year-old with acute hypoxic respiratory failure secondary to aspiration pneumonia and possibly unintentional overdose. Plan is as follows: 1. Respiratory failure. Patient has been treated for aspiration pneumonia and is currently off antibiotics. Is on a modified diet for a failed swallow. She does have Parkinson's disease and appeared to be on Sinemet. Has a more notable right upper extremity tremor today. I have asked Dr. Brown to see the patient in consultation. 2. The patient has unintentional drug overdose thought to be related to baseline dementia. 3. The patient has protein calorie malnutrition with low body mass index. Will repeat a prealbumin this week. 4. The patient has hypophosphatemia which will be repleted.
[2017-04-26 22:00] VITALS: BP 148/88
[2017-04-27] MEDS: HEPARIN SOD (PORCINE) 5000 UNITS/ML VIAL SC SCH ×3 (05:11→20:04)
[2017-04-27 06:00] VITALS: BP 140/86
[2017-04-27 06:26] LABS: MEAN CORPUSCULAR HEMOGLOBIN 31.3 pg (27.0-33.0); MEAN CORPUSCULAR HGB CONC 34.1 g/dl (32.0-36.5); MEAN CORPUSCULAR VOLUME 91.9 fl (80.0-96.0); RED CELL DISTRIBUTION WIDTH 12.6 % (11.5-14.5)
[2017-04-27] MEDS: IPRATROPIUM 0.5MG/ALBUTEROL 2.5MG INH SOL UD 3ML (DUONEB)(J7620) NEB SCH ×4 (07:16→19:28)
[2017-04-27 07:38] LABS: ANION GAP 10 MEQ/L (8-16); BLOOD UREA NITROGEN 33 MG/DL (7-18); CALCIUM LEVEL 9.5 MG/DL (8.8-10.2); CARBON DIOXIDE LEVEL 28 MEQ/L (21-32); CHLORIDE LEVEL 111 MEQ/L (98-107); CREATININE FOR GFR 0.68 MG/DL (0.55-1.02); GLOMERULAR FILTRATION RATE > 60.0 (>39); GLUCOSE, FASTING 116 MG/DL (83-110); POTASSIUM SERUM 3.6 MEQ/L (3.5-5.1); SODIUM LEVEL 149 MEQ/L (136-145)
[2017-04-27] MEDS: rOPINIRole 0.25 MG TAB(REQUIP) PO SCH ×3 (09:19→20:04)
[2017-04-27] MEDS: predniSONE 20 MG TAB PO SCH (09:19)
[2017-04-27] MEDS: OMEPRAZOLE 20 MG CAP PO SCH (09:19)
[2017-04-27] MEDS: DOCUSATE SODIUM 100 MG CAP PO SCH ×2 (11:37→20:04)
--- NOTE | 2017-04-27 12:11 | IPNPDOC ---
Subjective Date Seen The patient was seen on 04/27/17. Subjective Chief Complaint/HPI The patient is a 71-year-old female admitted with a reason for visit of Acute Respiratory Failure W/Hypoxia. General: Reports: Fatigue, Malaise, Denies: ROS Unobtainable, Chills, Night Sweats, Normal Appetite, Other Symptoms Constitutional: Reports: Malaise, Fatigue, Denies: Chills, Fever, Night Sweats, Weakness, Weight Loss, Lethargy, Other Eyes: Denies: Pain, Vision change, Conjunctivae inflammation, Eyelid inflammation, Redness, Other ENT: Denies: Head Aches, Ear Pain, Dysphagia, Sinus Congestion, Post Nasal Drip , Sore Throat, Epistaxis, Other Symptoms Skin: Denies: Rash, Lesions, Jaundice, Bruising, Itching, Dry, Breakdown, Nail Changes, Other Pulmonary: Denies: Dyspnea, Cough, Pleuritic Chest Pain, Other Symptoms Cardiovascular: Denies: Chest Pain, Palpitations, Orthopnea, Paroxysmal Noc. Dyspnea, Edema, Lt Headedness, Other Symptoms Gastrointestinal: Denies: Nausea, Vomiting, Abdominal Pain, Diarrhea, Constipation, Melena, Hematochezia, Other Symptoms Objective Physical Examination General Exam: Positive: No Acute Distress Chest Exam: Positive: Clear to auscultation, Normal air movement Heart Exam: Positive: Rate Normal, Regular Rhythm Abdomen Exam: Positive: Normal bowel sounds, Soft, Negative: Tenderness Extremity Exam: Negative: Edema Psych Exam: Positive: Other (flat affect; slow to respond), Negative: Oriented x 3 Assessment /Plan Problems (1) Tremor Problem Specific Plan: Consult Specialist, Monitor Clinically Problem Text: PD? Follow as per neurology. Was on sinemet at home possibly. (2) Dysphagia Status: Chronic Problem Text: modified diet (3) Protein calorie malnutrition Status: Chronic Problem Specific Plan: Monitor Clinically (4) Aspiration pneumonia Status: Resolved (5) Dementia Status: Chronic Problem Specific Plan: Monitor Clinically Plan/VTE VTE Prophylaxis Ordered?: Yes Plan Diet: Continue Current Activity: Continue Current Therapy: PT Diagnostics: Repeat Labs in AM VS, I&O, 24H, Fishbone Vital Signs/I&O Vital Signs Date Time Temp Pulse Resp B/P (MAP) Pulse Ox O2 Delivery O2 Flow Rate FiO2 04/27/17 06:00 98.1 95 18 140/86 (104) 96 Room Air I&O- Last 24 Hours up to 6 AM 04/27/17 06:00 Intake Total 870 ml Balance 870 ml Laboratory Data 24H LABS Laboratory Tests 2 04/27/17 06:13: Anion Gap 10, Glomerular Filtration Rate > 60.0, Blood Urea Nitrogen 33H, Creatinine 0.68, Sodium Level 149H, Potassium Level 3.6, Chloride Level 111H, Carbon Dioxide Level 28, Calcium Level 9.5, Prealbumin 21.0 CBC/BMP Laboratory Tests 04/27/17 06:13 Red Blood Count 4.07, Mean Corpuscular Volume 91.9, Mean Corpuscular Hemoglobin 31.3, Mean Corpuscular Hemoglobin Concent 34.1, Red Cell Distribution Width 12.6 , Calcium Level 9.5 Microbiology Microbiology 04/18/17 Blood Culture - Final, Complete NO GROWTH AFTER 5 DAYS 04/18/17 Blood Culture - Final, Complete NO GROWTH AFTER 5 DAYS LAURA SLOAN MD Apr 27, 2017 12:11
[2017-04-27 14:00] VITALS: BP 142/74
[2017-04-27] MEDS: DONEPEZIL 5 MG TAB PO SCH (20:04)
[2017-04-27 22:00] VITALS: BP 150/94
[2017-04-28] MEDS: HEPARIN SOD (PORCINE) 5000 UNITS/ML VIAL SC SCH ×3 (05:31→21:59)
[2017-04-28 06:00] VITALS: BP 162/64
[2017-04-28 06:25] LABS: MEAN CORPUSCULAR HEMOGLOBIN 30.5 pg (27.0-33.0); MEAN CORPUSCULAR HGB CONC 32.6 g/dl (32.0-36.5); MEAN CORPUSCULAR VOLUME 93.5 fl (80.0-96.0); RED CELL DISTRIBUTION WIDTH 12.7 % (11.5-14.5); WHITE BLOOD COUNT 8.2 K/mm3 (4.0-10.0)
[2017-04-28 06:30] LABS: ANION GAP 7 MEQ/L (8-16); BLOOD UREA NITROGEN 41 MG/DL (7-18); CALCIUM LEVEL 9.5 MG/DL (8.8-10.2); CARBON DIOXIDE LEVEL 30 MEQ/L (21-32); CHLORIDE LEVEL 110 MEQ/L (98-107); CREATININE FOR GFR 0.66 MG/DL (0.55-1.02); GLOMERULAR FILTRATION RATE > 60.0 (>39); GLUCOSE, FASTING 129 MG/DL (83-110); POTASSIUM SERUM 3.8 MEQ/L (3.5-5.1); SODIUM LEVEL 147 MEQ/L (136-145)
[2017-04-28] MEDS: IPRATROPIUM 0.5MG/ALBUTEROL 2.5MG INH SOL UD 3ML (DUONEB)(J7620) NEB SCH ×4 (07:12→19:44)
[2017-04-28] MEDS: OMEPRAZOLE 20 MG CAP PO SCH (08:55)
[2017-04-28] MEDS: DOCUSATE SODIUM 100 MG CAP PO SCH ×2 (08:55→21:59)
[2017-04-28] MEDS: predniSONE 20 MG TAB PO SCH (08:55)
[2017-04-28] MEDS: rOPINIRole 0.25 MG TAB(REQUIP) PO SCH ×3 (08:55→21:59)
--- NOTE | 2017-04-28 10:36 | IPNPDOC ---
Subjective Date Seen The patient was seen on 04/28/17. Subjective Chief Complaint/HPI The patient is a 71-year-old female admitted with a reason for visit of Acute Respiratory Failure W/Hypoxia. General: Reports: ROS Unobtainable Objective Physical Examination General Exam: Positive: No Acute Distress Chest Exam: Positive: Clear to auscultation, Normal air movement Heart Exam: Positive: Rate Normal, Regular Rhythm Abdomen Exam: Positive: Normal bowel sounds, Soft, Negative: Tenderness Extremity Exam: Negative: Edema Psych Exam: Positive: Other (flat affect; slow to respond), Negative: Oriented x 3 Assessment /Plan Problems (1) Tremor Problem Specific Plan: Consult Specialist, Monitor Clinically Problem Text: Did not tolerate Sinemet at home. Continue Requip. Neurology c/s appreciated. (2) Dysphagia Status: Chronic Problem Text: modified diet (3) Protein calorie malnutrition Status: Chronic Problem Specific Plan: Monitor Clinically (4) Aspiration pneumonia Status: Resolved (5) Dementia Status: Chronic Problem Specific Plan: Monitor Clinically Problem Text: Lewy body dementia. Plan/VTE VTE Prophylaxis Ordered?: Yes Plan Diet: Continue Current Activity: Continue Current Therapy: PT Diagnostics: Repeat Labs in AM Will likely transition to ALC status in 24-48 hours, hoping for improvement in mentation. VS, I&O, 24H, Fishbone Vital Signs/I&O Vital Signs Date Time Temp Pulse Resp B/P (MAP) Pulse Ox O2 Delivery O2 Flow Rate FiO2 04/28/17 06:00 99.2 92 20 162/64 (96) 96 Room Air I&O- Last 24 Hours up to 6 AM 04/28/17 05:59 Intake Total 180 ml Balance 180 ml Laboratory Data 24H LABS Laboratory Tests 2 04/28/17 05:42: Anion Gap 7L, Glomerular Filtration Rate > 60.0, Blood Urea Nitrogen 41H, Creatinine 0.66, Sodium Level 147H, Potassium Level 3.8, Chloride Level 110H, Carbon Dioxide Level 30, Calcium Level 9.5 CBC/BMP Laboratory Tests 04/28/17 05:42 Red Blood Count 4.33, Mean Corpuscular Volume 93.5, Mean Corpuscular Hemoglobin 30.5, Mean Corpuscular Hemoglobin Concent 32.6, Red Cell Distribution Width 12.7 , Calcium Level 9.5 Microbiology Microbiology 04/18/17 Blood Culture - Final, Complete NO GROWTH AFTER 5 DAYS 04/18/17 Blood Culture - Final, Complete NO GROWTH AFTER 5 DAYS LAURA SLOAN MD Apr 28, 2017 10:36
[2017-04-28 14:00] VITALS: BP 142/72
[2017-04-28] MEDS: ACETAMINOPHEN TAB 650MG DOSE (2X325MG) PO PRN (16:25)
[2017-04-28] MEDS: DONEPEZIL 5 MG TAB PO SCH (21:59)
[2017-04-28 22:00] VITALS: BP 127/82
[2017-04-29] MEDS: ACETAMINOPHEN TAB 650MG DOSE (2X325MG) PO PRN (03:27)
[2017-04-29] MEDS: HEPARIN SOD (PORCINE) 5000 UNITS/ML VIAL SC SCH ×3 (05:27→23:42)
[2017-04-29 06:00] VITALS: BP 144/80
[2017-04-29 06:03] LABS: MEAN CORPUSCULAR HGB CONC 33.2 g/dl (32.0-36.5); MEAN CORPUSCULAR VOLUME 93.4 fl (80.0-96.0); RED CELL DISTRIBUTION WIDTH 12.7 % (11.5-14.5); WHITE BLOOD COUNT 14.5 K/mm3 (4.0-10.0)
[2017-04-29 06:14] LABS: ANION GAP 7 MEQ/L (8-16); BLOOD UREA NITROGEN 53 MG/DL (7-18); CALCIUM LEVEL 9.5 MG/DL (8.8-10.2); CARBON DIOXIDE LEVEL 30 MEQ/L (21-32); CHLORIDE LEVEL 112 MEQ/L (98-107); CREATININE FOR GFR 0.81 MG/DL (0.55-1.02); GLOMERULAR FILTRATION RATE > 60.0 (>39); GLUCOSE, FASTING 123 MG/DL (83-110); POTASSIUM SERUM 3.7 MEQ/L (3.5-5.1); SODIUM LEVEL 149 MEQ/L (136-145)
[2017-04-29] MEDS: IPRATROPIUM 0.5MG/ALBUTEROL 2.5MG INH SOL UD 3ML (DUONEB)(J7620) NEB SCH ×4 (07:23→19:49)
--- NOTE | 2017-04-29 08:52 | IPNPDOC ---
Subjective Date Seen The patient was seen on 04/29/17. Subjective Chief Complaint/HPI The patient is a 71-year-old female admitted with a reason for visit of Acute Respiratory Failure W/Hypoxia. General: Reports: ROS Unobtainable Objective Physical Examination General Exam: Positive: No Acute Distress Chest Exam: Positive: Clear to auscultation, Normal air movement Heart Exam: Positive: Rate Normal, Regular Rhythm Abdomen Exam: Positive: Normal bowel sounds, Soft, Negative: Tenderness Extremity Exam: Negative: Edema Psych Exam: Positive: Other (flat affect; not answering questions), Negative: Oriented x 3 Assessment /Plan Problems (1) Tremor Problem Specific Plan: Consult Specialist, Monitor Clinically Problem Text: Did not tolerate Sinemet at home. Continue Requip. Neurology c/s appreciated. (2) Dysphagia Status: Chronic Problem Text: modified diet (3) Protein calorie malnutrition Status: Chronic Problem Specific Plan: Monitor Clinically (4) Aspiration pneumonia Status: Resolved (5) Dementia Status: Chronic Problem Specific Plan: Monitor Clinically Problem Text: Lewy body dementia. (6) Fever Status: Acute Problem Specific Plan: Monitor Clinically, Repeat Labs, Repeat Tests Problem Text: with leukocytosis. BCx, UA, UCx, CXR pending Plan/VTE VTE Prophylaxis Ordered?: Yes Plan Diet: Continue Current Activity: Continue Current Therapy: PT Diagnostics: Repeat Labs in AM, Obtain Cultures, Xrays VS, I&O, 24H, Fishbone Vital Signs/I&O Vital Signs Date Time Temp Pulse Resp B/P (MAP) Pulse Ox O2 Delivery O2 Flow Rate FiO2 04/29/17 06:00 99.1 93 18 144/80 (101) 92 04/28/17 23:07 Room Air I&O- Last 24 Hours up to 6 AM 04/29/17 05:59 Intake Total 0 ml Balance 0 ml Laboratory Data 24H LABS Laboratory Tests 2 04/29/17 05:37: Anion Gap 7L, Glomerular Filtration Rate > 60.0, Blood Urea Nitrogen 53H, Creatinine 0.81, Sodium Level 149H, Potassium Level 3.7, Chloride Level 112H, Carbon Dioxide Level 30, Calcium Level 9.5 CBC/BMP Laboratory Tests 04/29/17 05:37 Red Blood Count 4.53, Mean Corpuscular Volume 93.4, Mean Corpuscular Hemoglobin 31.0, Mean Corpuscular Hemoglobin Concent 33.2, Red Cell Distribution Width 12.7 , Calcium Level 9.5 LAURA SLOAN MD Apr 29, 2017 08:52
[2017-04-29 08:57] VITALS: BP 147/79
[2017-04-29] MEDS: DOCUSATE SODIUM 100 MG CAP PO SCH ×2 (09:50→21:00)
[2017-04-29] MEDS: predniSONE 10 MG TAB PO SCH (09:50)
[2017-04-29] MEDS: rOPINIRole 0.25 MG TAB(REQUIP) PO SCH ×3 (09:50→21:00)
[2017-04-29] MEDS: OMEPRAZOLE 20 MG CAP PO SCH (09:50)
--- NOTE | 2017-04-29 10:21 | REP ---
REASON FOR EXAM: Leukocytosis and pyrexia. COMPARISON: Multiple, latest 04/21/2017. The technique utilized in obtaining the radiograph has magnified the cardiac silhouette and accentuated the interstitial markings. The opacity seen previously in the right lung base has cleared. No acute patchy parenchymal opacities or pleural effusions have developed. The lungs are essentially clear with evidence of mild fibrotic changes. The cardiomediastinal silhouette is unchanged. The heart is not enlarged. The pleural angles are sharp. The osseous structures stable and intact. IMPRESSION: No acute cardiopulmonary disease. Signed by Victor Hugo Flowers DO 04/29/2017 04:41 P
[2017-04-29 13:08] LABS: YEAST LIKE CELL URINE AUTO SMALL
[2017-04-29 14:00] VITALS: BP 162/79
[2017-04-29 18:38] VITALS: BP 168/83
[2017-04-29] MEDS: DONEPEZIL 5 MG TAB PO SCH (21:00)
[2017-04-29 22:00] VITALS: BP 154/86
--- NOTE | 2017-04-29 22:20 | REPUSA ---
Clinical history: Congestion. Comparison: None. Findings: The mediastinum and cardiac silhouette are within normal limits. The lungs are clear. No pl eural effusion or pneumothorax is seen. The osseous structures and soft tissues are unremarkable. Impression: No acute disease.
[2017-04-30] MEDS: HEPARIN SOD (PORCINE) 5000 UNITS/ML VIAL SC SCH ×3 (05:56→21:41)
[2017-04-30 06:00] VITALS: BP 136/88
[2017-04-30 06:06] LABS: MEAN CORPUSCULAR HEMOGLOBIN 30.2 pg (27.0-33.0); MEAN CORPUSCULAR HGB CONC 31.8 g/dl (32.0-36.5); MEAN CORPUSCULAR VOLUME 94.9 fl (80.0-96.0); RED CELL DISTRIBUTION WIDTH 12.8 % (11.5-14.5); WHITE BLOOD COUNT 15.8 K/mm3 (4.0-10.0)
[2017-04-30 06:29] LABS: ANION GAP 8 MEQ/L (8-16); BLOOD UREA NITROGEN 53 MG/DL (7-18); CALCIUM LEVEL 10.1 MG/DL (8.8-10.2); CARBON DIOXIDE LEVEL 29 MEQ/L (21-32); CHLORIDE LEVEL 120 MEQ/L (98-107); CREATININE FOR GFR 0.77 MG/DL (0.55-1.02); GLOMERULAR FILTRATION RATE > 60.0 (>39); GLUCOSE, FASTING 119 MG/DL (83-110); POTASSIUM SERUM 3.9 MEQ/L (3.5-5.1)
[2017-04-30 06:36] LABS: SODIUM LEVEL 157 MEQ/L (136-145)
[2017-04-30] MEDS ORDERED: NS 1,000 ML IV SCH (07:00)
[2017-04-30] MEDS: IPRATROPIUM 0.5MG/ALBUTEROL 2.5MG INH SOL UD 3ML (DUONEB)(J7620) NEB SCH ×4 (07:13→19:54)
[2017-04-30] MEDS: NS 0.45% 1,000 ML IV SCH ×2 (07:30→23:58)
[2017-04-30] MEDS ORDERED: cefTRIAXone SOD 1 GM in D5W MINI-BAG PLUS 50 ML IV SCH (08:00)
--- NOTE | 2017-04-30 08:38 | REP ---
CT of the chest without IV contrast: Comparisons are the chest CT of 09/02/2006 and portable chest of 04/29/2017. There is a tree in bud pattern in the lower lobes bilaterally compatible with bilateral lower lobe pneumonitis. There is a small right pleural effusion. These findings were not visible on the comparison portable plain film study. Cardiac size is normal. There is no mediastinal adenopathy. No axillary adenopathy. In the absence of IV contrast the study is insensitive for hilar adenopathy. The visualized upper abdominal contents are unremarkable. On the comparison CT there was a pancreatic cyst. The pancreas is not included in entirety on the current study. There is significant beam-hardening artifact throughout the entire study resulting in significant image degradation from the patient being scanned with arms at sides. Impression: Bilateral lower lobe tree in bud pattern compatible with lower lobe pneumonitis. The small right pleural effusion Signed by Mason Barakat MD 04/30/2017 08:30 A
--- NOTE | 2017-04-30 08:45 | IPNPDOC ---
Subjective Date Seen The patient was seen on 04/30/17. Subjective Chief Complaint/HPI The patient is a 71-year-old female admitted with a reason for visit of Acute Respiratory Failure W/Hypoxia. General: Reports: ROS Unobtainable Objective Physical Examination General Exam: Positive: No Acute Distress, Negative: Cooperative Chest Exam: Positive: Diminished Heart Exam: Positive: Rate Normal, Regular Rhythm Abdomen Exam: Positive: Normal bowel sounds, Soft, Negative: Tenderness Extremity Exam: Negative: Edema Psych Exam: Positive: Other (flat affect; not answering questions), Negative: Oriented x 3 Assessment /Plan Problems (1) Tremor Problem Specific Plan: Consult Specialist, Monitor Clinically Problem Text: Did not tolerate Sinemet at home. Continue Requip. Neurology c/s appreciated. (2) Dysphagia Status: Chronic Problem Text: concern for aspiration again. nothing by mouth - repeat swallow evaluation. (3) Protein calorie malnutrition Status: Chronic Problem Specific Plan: Monitor Clinically (4) Aspiration pneumonia Status: Acute Problem Text: NPO - repeat swallow evaluation pending (5) Dementia Status: Chronic Problem Specific Plan: Monitor Clinically Problem Text: Lewy body dementia. (6) Fever Status: Acute Problem Specific Plan: Monitor Clinically, Repeat Labs, Repeat Tests Problem Text: with leukocytosis. BCx, pending CXR suspicious for aspiration (7) Hypernatremia Status: Acute Problem Specific Plan: Monitor Clinically, Repeat Labs Problem Text: Likely secondary to inadequate free water intake. Started NS at 60 cc/hr. (8) Pneumonitis Status: Acute Problem Specific Plan: Monitor Clinically, Repeat Labs Plan/VTE VTE Prophylaxis Ordered?: Yes Plan Diet: Continue Current Activity: Continue Current Therapy: PT Diagnostics: Repeat Labs in AM Discussed at length with sister over the telephone. She will be discussing with her patient's daughter regarding further advanced directive, particularly feeding tube if needed. She feels patient would not want a feeding tube. VS, I&O, 24H, [place] Vital Signs/I&O Vital Signs Date Time Temp Pulse Resp B/P (MAP) Pulse Ox O2 Delivery O2 Flow Rate FiO2 04/30/17 06:00 98.9 100 24 136/88 (104) 90 Nasal Cannula 2.0 I&O- Last 24 Hours up to 6 AM 04/30/17 06:00 Intake Total 240 ml Output Total 0 ml Balance 240 ml Laboratory Data 24H LABS Laboratory Tests 2 04/29/17 12:42: Urine Appearance HAZY, Urine Color YELLOW, Urine pH 5.0, Urine Specific [place] 1.023, Urine Protein NEGATIVE, Urine Glucose (UA) NEGATIVE, Urine Ketones NEGATIVE, Urine Urobilinogen 0.2, Urine Bilirubin NEGATIVE, Urine Leukocyte Esterase NEGATIVE, Urine Blood NEGATIVE, Urine Nitrite NEGATIVE, Urine WBC (Auto ) 7H, Urine RBC (Auto) 5H, Urine Hyaline Casts (Auto) 0, Urine Bacteria (Auto) 1 +H, Urine Squamous Epithelial Cells 0, Urine Mucus (Auto) SMALL, Urine Yeast- Like Cells (Auto) SMALLH, Urine Sperm (Auto) , Urine Random Osmolality 782 04/30/17 05:29: Anion Gap 8, Glomerular Filtration Rate > 60.0, Blood Urea Nitrogen 53H, Creatinine 0.77, Sodium Level 157#H, Potassium Level 3.9, Chloride Level 120H, Carbon Dioxide Level 29, Calcium Level 10.1 CBC/BMP Laboratory Tests 04/30/17 05:29 Red Blood Count 4.92, Mean Corpuscular Volume 94.9, Mean Corpuscular Hemoglobin 30.2, Mean Corpuscular Hemoglobin Concent 31.8 L, Red Cell Distribution Width 12.8, Calcium Level 10.1 Microbiology Microbiology 04/29/17 Blood Culture, Received Pending 04/29/17 Blood Culture, Received Pending 04/29/17 Urine Culture, Received Pending LAURA SLOAN MD Apr 30, 2017 08:45
[2017-04-30] MEDS: OMEPRAZOLE 20 MG CAP PO SCH (08:54)
[2017-04-30] MEDS: MOM 30ML SUSPENSION UDC PO PRN (08:54)
[2017-04-30] MEDS: predniSONE 10 MG TAB PO SCH (08:55)
[2017-04-30] MEDS: rOPINIRole 0.25 MG TAB(REQUIP) PO SCH ×3 (08:55→21:00)
[2017-04-30] MEDS: DOCUSATE SODIUM 100 MG CAP PO SCH ×2 (08:55→21:00)
[2017-04-30] MEDS ORDERED: E-Z-PAQUE 96% w/w SUSP 176GM BTL As Ordered ONE (13:22)
[2017-04-30] MEDS ORDERED: VARIBAR PUDDING 40% w/v 230ML TUBE As Ordered ONE (13:22)
[2017-04-30] MEDS ORDERED: VARIBAR NECTAR 40% w/v 240ML SUSP BTL As Ordered ONE (13:22)
[2017-04-30 14:00] VITALS: BP 138/78
[2017-04-30] MEDS: ACETAMINOPHEN TAB 650MG DOSE (2X325MG) PO PRN (17:10)
[2017-04-30 17:42] LABS: ANION GAP 9 MEQ/L (8-16); BLOOD UREA NITROGEN 68 MG/DL (7-18); CALCIUM LEVEL 10.4 MG/DL (8.8-10.2); CARBON DIOXIDE LEVEL 30 MEQ/L (21-32); CHLORIDE LEVEL 117 MEQ/L (98-107); CREATININE FOR GFR 0.91 MG/DL (0.55-1.02); GLOMERULAR FILTRATION RATE > 60.0 (>39); GLUCOSE, FASTING 117 MG/DL (83-110); POTASSIUM SERUM 4.1 MEQ/L (3.5-5.1); SODIUM LEVEL 156 MEQ/L (136-145)
[2017-04-30] MEDS: DONEPEZIL 5 MG TAB PO SCH (21:00)
[2017-04-30 22:00] VITALS: BP 140/76
[2017-05-01] MEDS ORDERED: IPRATROPIUM 0.5MG/ALBUTEROL 2.5MG INH SOL UD 3ML (DUONEB)(J7620) NEB ONE (06:00)
[2017-05-01] MEDS: HEPARIN SOD (PORCINE) 5000 UNITS/ML VIAL SC SCH ×3 (06:00→22:12)
[2017-05-01 06:04] LABS: MEAN CORPUSCULAR HGB CONC 32.7 g/dl (32.0-36.5); MEAN CORPUSCULAR VOLUME 94.6 fl (80.0-96.0); RED CELL DISTRIBUTION WIDTH 12.7 % (11.5-14.5); WHITE BLOOD COUNT 18.6 K/mm3 (4.0-10.0)
[2017-05-01] MEDS: IPRATROPIUM 0.5MG/ALBUTEROL 2.5MG INH SOL UD 3ML (DUONEB)(J7620) NEB SCH ×4 (06:13→20:03)
[2017-05-01 06:32] LABS: ANION GAP 10 MEQ/L (8-16); BLOOD UREA NITROGEN 63 MG/DL (7-18); CALCIUM LEVEL 10.1 MG/DL (8.8-10.2); CARBON DIOXIDE LEVEL 29 MEQ/L (21-32); CHLORIDE LEVEL 119 MEQ/L (98-107); GLOMERULAR FILTRATION RATE > 60.0 (>39); GLUCOSE, FASTING 124 MG/DL (83-110); POTASSIUM SERUM 3.8 MEQ/L (3.5-5.1); SODIUM LEVEL 158 MEQ/L (136-145)
[2017-05-01 06:33] LABS: ABG BASE EXCESS 6.3 (-2.0-2.0); ABG HCO3 29.8 MEQ/L (22.0-26.0); ABG PARTIAL PRESSURE CO2 38.7 mmHg (35.0-45.0); ABG PARTIAL PRESSURE O2 61.7 mmHg (75.0-100.0); ABG STANDARD HCO3 30.1 MEQ/L (22.0-26.0); ABG pH (ARTERIAL) 7.504 UNITS (7.350-7.450)
[2017-05-01 08:00] VITALS: BP 139/71
--- NOTE | 2017-05-01 08:33 | IPNPDOC ---
Subjective Date Seen The patient was seen on 05/01/17. Subjective Chief Complaint/HPI The patient is a 71-year-old female admitted with a reason for visit of Acute Respiratory Failure W/Hypoxia. General: Reports: ROS Unobtainable Objective Physical Examination General Exam: Positive: No Acute Distress, Negative: Cooperative Chest Exam: Positive: Diminished, Other (rhonchorous bilateral breath sounds) Heart Exam: Positive: Rate Normal, Regular Rhythm Abdomen Exam: Positive: Normal bowel sounds, Soft, Negative: Tenderness Extremity Exam: Negative: Edema Psych Exam: Positive: Other (flat affect; not answering questions), Negative: Oriented x 3 Assessment /Plan Problems (1) Tremor Problem Specific Plan: Consult Specialist, Monitor Clinically Problem Text: Did not tolerate Sinemet at home. Continue Requip. Neurology c/s appreciated. (2) Dysphagia Status: Chronic Problem Text: concern for aspiration again. nothing by mouth - repeat swallow evaluation. (3) Protein calorie malnutrition Status: Chronic Problem Specific Plan: Monitor Clinically (4) Aspiration pneumonia Status: Acute Problem Text: NPO - repeat swallow evaluation pending. Now in further respiratory distress. Was transferred to ICU early this morning. Currently saturating well on 4L via nasal cannula. Decisions now being managed by daughter who wants aggressive treatment including intubation and feeding tube if needed. (5) Dementia Status: Chronic Problem Specific Plan: Monitor Clinically Problem Text: Lewy body dementia in the setting of Parkinsons Disease. (6) Fever Status: Acute Problem Specific Plan: Monitor Clinically, Repeat Labs, Repeat Tests Problem Text: Likely aspiration pneumonia. (7) Hypernatremia Status: Acute Problem Specific Plan: Monitor Clinically, Repeat Labs Problem Text: Likely secondary to inadequate free water intake. Continue with D51/2NS. (8) Pneumonitis Status: Acute Problem Specific Plan: Monitor Clinically, Repeat Labs Plan/VTE VTE Prophylaxis Ordered?: Yes Plan Diet: Make NPO Activity: Continue Current Therapy: PT Diagnostics: Repeat Labs in AM Patient with severe end-stage dementia now in respiratory failure likely secondary to aspiration pneumonia. Started Zosyn, MRSA screen pending. IV fluids, NPO, swallow evaluation pending for Wednesday. Discussed with sister and daughter. Daughter now to assume decision making, and would like full code including feeding tube if needed. VS, I&O, 24H, Fishbone Vital Signs/I&O Vital Signs Date Time Temp Pulse Resp B/P (MAP) Pulse Ox O2 Delivery O2 Flow Rate FiO2 05/01/17 08:00 22 95 Venturi Mask 15.0 55 05/01/17 07:20 97.7 04/30/17 22:00 96 140/76 (97) I&O- Last 24 Hours up to 6 AM 05/01/17 06:00 Intake Total 300 ml Output Total 0 ml Balance 300 ml Laboratory Data 24H LABS Laboratory Tests 2 04/30/17 17:03: Anion Gap 9, Glomerular Filtration Rate > 60.0, Blood Urea Nitrogen 68H, Creatinine 0.91, Sodium Level 156H, Potassium Level 4.1, Chloride Level 117H, Carbon Dioxide Level 30, Calcium Level 10.4H 05/01/17 05:47: Anion Gap 10, Glomerular Filtration Rate > 60.0, Blood Urea Nitrogen 63H, Creatinine 0.80, Sodium Level 158H, Potassium Level 3.8, Chloride Level 119H, Carbon Dioxide Level 29, Calcium Level 10.1, Total Creatine Kinase 96, Creatine Kinase MB 1.0, Creatine Kinase MB Relative Index 1.04, Troponin I < 0.02 05/01/17 06:18: Blood Gas Bicarbonate Standard 30.1H, Arterial Blood pH 7.504H, Arterial Blood Partial Pressure CO2 38.7, Arterial Blood Partial Pressure O2 61.7L, Arterial Blood Total CO2 31.0, Arterial Blood HCO3 29.8H, Arterial Blood Base Excess 6.3H , Arterial Blood Oxygen Saturation 93.5L CBC/BMP Laboratory Tests 04/30/17 17:03 Calcium Level 10.4 H 05/01/17 05:47 Calcium Level 10.1, Red Blood Count 4.72, Mean Corpuscular Volume 94.6, Mean Corpuscular Hemoglobin 31.0, Mean Corpuscular Hemoglobin Concent 32.7, Red Cell Distribution Width 12.7 Microbiology Microbiology 04/29/17 Blood Culture - Preliminary, Resulted No growth after 24 hours . All specim... 04/29/17 Blood Culture - Preliminary, Resulted No growth after 24 hours . All specim... 04/29/17 Urine Culture - Final, Complete Escherichia Coli LAURA SLOAN MD May 01, 2017 08:33
--- NOTE | 2017-05-01 08:35 | REP ---
REASON: Decreased breath sounds and hypoxia. COMPARISON: Two days ago. The technique utilized in obtaining the radiograph has magnified the cardiac silhouette and accentuated the interstitial markings. There is partial silhouetting out of the diaphragmatic surface of the left lung. There is a possible patchy right lower lobe opacity. There is artifact from external air sampling and monitoring lead strewn about the chest decreasing the sensitivity of the exam. There are no other significant changes. IMPRESSION: Possible basilar pneumonia. Signed by Victor Hugo Flowers DO 05/01/2017 10:37 A
[2017-05-01] MEDS: rOPINIRole 0.25 MG TAB(REQUIP) PO SCH ×3 (09:00→20:58)
[2017-05-01] MEDS: D5W/0.45% SODIUM CHLORIDE 1,000 ML IV SCH (09:14)
[2017-05-01] MEDS: PIPERACILLIN/TAZOBACTAM SOD 4.5 GM in D5W MINI-BAG PLUS 50 ML IV SCH ×3 (09:20→19:42)
[2017-05-01] MEDS: PANTOPRAZOLE 40MG INJ (PROTONIX) (C9113) IV SCH (09:24)
[2017-05-01 09:47] LABS: MYOGLOBIN 340 NG/ML (13-71)
[2017-05-01] MEDS: ACETAMINOPHEN 650 MG SUPP PR PRN (10:30)
[2017-05-01 12:00] VITALS: BP 154/115
[2017-05-01 15:28] LABS: ABG HCO3 28.3 MEQ/L (22.0-26.0); ABG PARTIAL PRESSURE CO2 37.4 mmHg (35.0-45.0); ABG STANDARD HCO3 28.8 MEQ/L (22.0-26.0); ABG TOTAL CO2 29.5 MEQ/L (23.0-31.0); ABG pH (ARTERIAL) 7.497 UNITS (7.350-7.450)
[2017-05-01 15:30] VITALS: BP 128/70
[2017-05-01] MEDS ORDERED: IPRATROPIUM 0.5MG/ALBUTEROL 2.5MG INH SOL UD 3ML (DUONEB)(J7620) NEB PRN (15:30)
[2017-05-01 18:00] VITALS: BP 148/75
[2017-05-01 20:00] VITALS: BP 134/67
[2017-05-01] MEDS: DONEPEZIL 5 MG TAB PO SCH (20:58)
--- NOTE | 2017-05-01 21:23 | ECGEPIP ---
Stationary ECG Study [facility] Test Date: 2017-05-01 Pat Name: JORDI HERRERA Department: Room: [place] [address] Gender: F [employer]: : 1945 Requested By: LAURA Inman Order Number: [id number] Reading MD: Portillo Eckert Measurements Intervals [place] Rate: 110 P: SD: 0 QRS: 74 QRSD: 90 T: 43 QT: 320 QTc: 433 Interpretive Statements Significant artifact Regular tachycardia Electronically Signed On 05-01-2017 21:22:54 EDT by Portillo Eckert
[2017-05-02] VITALS (7 sets, daily range): BP systolic 113–166; BP diastolic 59–96
[2017-05-02] MEDS: ACETAMINOPHEN 650 MG SUPP PR PRN ×2 (02:27→11:49)
[2017-05-02] MEDS: PIPERACILLIN/TAZOBACTAM SOD 4.5 GM in D5W MINI-BAG PLUS 50 ML IV SCH ×4 (02:28→19:42)
[2017-05-02 04:43] LABS: MEAN CORPUSCULAR HEMOGLOBIN 31.1 pg (27.0-33.0); MEAN CORPUSCULAR HGB CONC 32.5 g/dl (32.0-36.5); MEAN CORPUSCULAR VOLUME 95.5 fl (80.0-96.0); RED CELL DISTRIBUTION WIDTH 12.7 % (11.5-14.5); WHITE BLOOD COUNT 13.6 K/mm3 (4.0-10.0)
[2017-05-02] MEDS: D5W/0.45% SODIUM CHLORIDE 1,000 ML IV SCH (04:52)
[2017-05-02] MEDS: HEPARIN SOD (PORCINE) 5000 UNITS/ML VIAL SC SCH ×3 (05:00→21:50)
[2017-05-02 05:01] LABS: ANION GAP 10 MEQ/L (8-16); BLOOD UREA NITROGEN 59 MG/DL (7-18); CALCIUM LEVEL 9.8 MG/DL (8.8-10.2); CARBON DIOXIDE LEVEL 30 MEQ/L (21-32); CHLORIDE LEVEL 123 MEQ/L (98-107); CREATININE FOR GFR 0.93 MG/DL (0.55-1.02); GLOMERULAR FILTRATION RATE > 60.0 (>39); GLUCOSE, FASTING 160 MG/DL (83-110); POTASSIUM SERUM 3.4 MEQ/L (3.5-5.1); SODIUM LEVEL 163 MEQ/L (136-145)
[2017-05-02] MEDS ORDERED: KCL 10MEQ IN 100ML SWI (KRUN) 10 MEQ in APPROPRIATE DILUENT 1 EA IV SCH ×2 (06:00)
[2017-05-02] MEDS ORDERED: D5W 1,000 ML IV SCH (06:45)
[2017-05-02] MEDS: IPRATROPIUM 0.5MG/ALBUTEROL 2.5MG INH SOL UD 3ML (DUONEB)(J7620) NEB SCH ×4 (07:13→19:55)
[2017-05-02] MEDS: rOPINIRole 0.25 MG TAB(REQUIP) PO SCH ×3 (07:52→20:47)
[2017-05-02] MEDS: PANTOPRAZOLE 40MG INJ (PROTONIX) (C9113) IV SCH (09:21)
--- NOTE | 2017-05-02 10:18 | IPNPDOC ---
Subjective Date Seen The patient was seen on 05/02/17. Subjective Chief Complaint/HPI The patient is a 71-year-old female admitted with a reason for visit of Acute Respiratory Failure W/Hypoxia. Events since last encounter Continuing to wean O2. No acute overnight events. General: Reports: ROS Unobtainable, Other Symptoms (No complaints. Poor historian.), Denies: Chills, Night Sweats, Fatigue, Malaise, Normal Appetite Objective Physical Examination General Exam: Positive: No Acute Distress, Negative: Cooperative Chest Exam: Positive: Diminished, Other (coarse breath sounds) Heart Exam: Positive: Rate Normal, Regular Rhythm Abdomen Exam: Positive: Normal bowel sounds, Soft, Negative: Tenderness Extremity Exam: Negative: Edema Assessment /Plan Problems (1) Tremor Problem Specific Plan: Consult Specialist, Monitor Clinically Problem Text: Did not tolerate Sinemet at home. Continue Requip. Neurology c/s appreciated. (2) Dysphagia Status: Chronic Problem Text: concern for aspiration again. nothing by mouth - repeat swallow evaluation. (3) Protein calorie malnutrition Status: Chronic Problem Specific Plan: Monitor Clinically (4) Aspiration pneumonia Status: Acute Response to Treatment: Improving Problem Text: NPO - repeat swallow evaluation pending. Now in further respiratory distress. Was transferred to ICU early this morning. Currently saturating well on 4L via nasal cannula. Decisions now being managed by daughter who wants aggressive treatment including intubation and feeding tube if needed. Continue IV Zosyn. Respiratory treatments. Have weaned to supplemental O2 via nasal cannula. Likely transfer to med/surg floor today. (5) Dementia Status: Chronic Problem Specific Plan: Monitor Clinically Problem Text: Lewy body dementia in the setting of Parkinsons Disease. (6) Fever Status: Acute Problem Specific Plan: Monitor Clinically, Repeat Labs, Repeat Tests Problem Text: Likely aspiration pneumonia. (7) Hypernatremia Status: Acute Problem Specific Plan: Monitor Clinically, Repeat Labs Problem Text: Likely secondary to inadequate free water intake. Worsening - transitioned to D5W. Nephrology consultation pending. (8) Pneumonitis Status: Acute Problem Specific Plan: Monitor Clinically, Repeat Labs Plan/VTE VTE Prophylaxis Ordered?: Yes Plan Diet: Make NPO Activity: Continue Current Therapy: PT Respiratory: Wean Oxygen Diagnostics: Repeat Labs in AM Swallow evaluation pending for tomorrow. Continue IV fluids given NPO and hypernatremia. Nephro consultation pending for hypernatremia. Full code, PEG tube if needed as per daughter. To discuss with PCP on Wednesday regarding existing MOLST - sister is possibly her HCP however she has requested daughter assume responsibility for medical decision making. VS, I&O, 24H, [place] Vital Signs/I&O Vital Signs Date Time Temp Pulse Resp B/P (MAP) Pulse Ox O2 Delivery O2 Flow Rate FiO2 05/02/17 08:00 Nasal Cannula 2.0 05/02/17 04:00 99.8 88 18 113/62 (79) 94 05/01/17 18:00 35 I&O- Last 24 Hours up to 6 AM 05/02/17 06:00 Intake Total 1930 ml Balance 1930 ml Laboratory Data 24H LABS Laboratory Tests 2 05/01/17 15:23: Blood Gas Bicarbonate Standard 28.8H, Arterial Blood pH 7.497H, Arterial Blood Partial Pressure CO2 37.4, Arterial Blood Partial Pressure O2 59.0L, Arterial Blood Total CO2 29.5, Arterial Blood HCO3 28.3H, Arterial Blood Base Excess 5.0H , Arterial Blood Oxygen Saturation 92.2L 05/02/17 04:11: Anion Gap 10, Glomerular Filtration Rate > 60.0, Blood Urea Nitrogen 59H, Creatinine 0.93, Sodium Level 163*H, Potassium Level 3.4L, Chloride Level 123H, Carbon Dioxide Level 30, Calcium Level 9.8 CBC/BMP Laboratory Tests 05/02/17 04:11 Red Blood Count 4.53, Mean Corpuscular Volume 95.5, Mean Corpuscular Hemoglobin 31.1, Mean Corpuscular Hemoglobin Concent 32.5, Red Cell Distribution Width 12.7 , Calcium Level 9.8 Microbiology Microbiology 04/29/17 Blood Culture - Preliminary, Resulted No Growth after 72 hours. All specime... 04/29/17 Blood Culture - Preliminary, Resulted No Growth after 72 hours. All specime... 04/29/17 Urine Culture - Final, Complete Escherichia Coli LAURA SLOAN MD May 02, 2017 10:18
[2017-05-02] MEDS: KCL 20MEQ IN D5W 1000ML 1,000 ML IV SCH (14:30)
[2017-05-02] MEDS: DONEPEZIL 5 MG TAB PO SCH (20:46)
--- NOTE | 2017-05-02 21:13 | CR ---
DATE OF CONSULTATION: 05/02/2017 REQUESTING PHYSICIAN: Dr. Soto Leo MD. REASON FOR CONSULTATION: Hypernatremia. HISTORY: This is a 71-year-old female with known history of dementia, chronic obstructive pulmonary disease (COPD), Parkinson's disease and chronic malnutrition. She was admitted to [facility] on April 18 with worsening hypoxemia. Initially she was treated with bilevel positive airway pressure (BiPAP) and antibiotics for pneumonia. Her sodium level was 139 on admission and has increased gradually over last one week. On April 23, her sodium level was 140 and then there are no labs for a few days. On April 27, sodium was 149, and today it increased to 163. A nephrology consultation was requested this morning and the patient is seen in intensive care unit. PAST MEDICAL AND SURGICAL HISTORY: Significant for: 1. History of dementia. 2. History of Parkinson's disease. 3. Pneumonia. 4. Malnutrition. 5. Respiratory insufficiency with possible aspiration. MEDICATIONS Current medications include: - intravenous (IV) fluid dextrose 5% in water (D5W) - DuoNeb - Protonix 40 mg daily - Tylenol as needed - Zosyn 4.5 grams every six hours - Aricept 5 mg daily - Requip 0.25 mg three times a day - heparin 5000 units every eight hours ALLERGIES: There are reported allergy to SERTRALINE, SULFA DRUGS and FLUTICASONE. PERSONAL AND SOCIAL HISTORY: The patient lives with her daughter. She has history of dementia. However, she was reportedly able to take care of herself at home with some assistance. Currently she is non communicative and unable to provide any information. REVIEW OF SYSTEMS: Not possible at present due to no family member available and the patient is being non communicative. PHYSICAL EXAMINATION: Elderly female who looks older than her stated age and quite emaciated. Temperature is 99.5 degrees Fahrenheit, heart rate 98 per minute and respiratory rate 18 per minute. Blood pressure 123/59 mmHg and oxygen saturation 95% on two liters oxygen. Head is atraumatic. Superficial neck veins are prominent. However jugular venous distention (JVD) is not abnormally distended. Oral mucosa somewhat dry. The patient is not fully cooperative for a detailed exam. Heart sounds are tachycardiac. Lungs have moderate air entry with poor inspiratory effort bilaterally. Abdomen is soft and nontender. Bowel sounds are present and there is no palpable organomegaly. Extremities have no cyanosis or clubbing. Skin is dry and skin tenting is present. Neurologically the patient is non communicative. LABORATORY DATA: On admission, sodium was 139, and on April 27 went up to 149. On April 29 it was still 149, but on April 30 went up to 157. Yesterday was 158 and today up to 163. Potassium level is 3.4, BUN 59 and creatinine 0.93. Glucose 160 and calcium 9.8. PROBLEMS: 1. Hypernatremia. This most likely related to dehydration. Disproportionately elevated BUN is also suggestive of dehydration. Will increase the IV fluid D5W to 80 mL per hour. Renal function and electrolytes will be checked again tomorrow morning. 2. Hypokalemia related to no oral intake. She is currently nothing by mouth due to aspiration pneumonia. Apparently a feeding tube has been discussed with the family. We will add potassium chloride 20 mEq in IV fluid and recheck her electrolytes tomorrow. 3. Acute renal failure. This is most likely related to dehydration. BUN is up to 59 and creatinine 0.93. Her baseline serum creatinine has been about 0.5. This is also prerenal and related to dehydration. Will hydrate her more aggressively and monitor her renal function and electrolytes on a daily basis. 4. Protein calorie malnutrition. The patient seems chronically malnourished. I strongly recommend a feeding tube placement as that will also help with her fluids and electrolytes. You for involving me in the care of Ms. Chi. I will follow her along with you.
[2017-05-03] MEDS: PIPERACILLIN/TAZOBACTAM SOD 4.5 GM in D5W MINI-BAG PLUS 50 ML IV SCH ×2 (02:36→08:24)
[2017-05-03] MEDS: KCL 20MEQ IN D5W 1000ML 1,000 ML IV SCH ×2 (03:30→15:29)
[2017-05-03] MEDS: ACETAMINOPHEN 650 MG SUPP PR PRN ×2 (03:30→22:11)
[2017-05-03] MEDS: HEPARIN SOD (PORCINE) 5000 UNITS/ML VIAL SC SCH ×3 (05:04→22:10)
[2017-05-03 05:41] LABS: MEAN CORPUSCULAR HEMOGLOBIN 31.2 pg (27.0-33.0); MEAN CORPUSCULAR HGB CONC 32.5 g/dl (32.0-36.5); MEAN CORPUSCULAR VOLUME 96.3 fl (80.0-96.0); RED CELL DISTRIBUTION WIDTH 12.7 % (11.5-14.5); WHITE BLOOD COUNT 11.2 K/mm3 (4.0-10.0)
[2017-05-03 05:50] LABS: ANION GAP 8 MEQ/L (8-16); BLOOD UREA NITROGEN 44 MG/DL (7-18); CALCIUM LEVEL 9.4 MG/DL (8.8-10.2); CARBON DIOXIDE LEVEL 29 MEQ/L (21-32); CHLORIDE LEVEL 124 MEQ/L (98-107); CREATININE FOR GFR 0.77 MG/DL (0.55-1.02); GLOMERULAR FILTRATION RATE > 60.0 (>39); GLUCOSE, FASTING 144 MG/DL (83-110); POTASSIUM SERUM 3.4 MEQ/L (3.5-5.1); SODIUM LEVEL 161 MEQ/L (136-145)
[2017-05-03 06:00] VITALS: BP 129/62
[2017-05-03] MEDS: IPRATROPIUM 0.5MG/ALBUTEROL 2.5MG INH SOL UD 3ML (DUONEB)(J7620) NEB SCH ×4 (07:22→19:50)
[2017-05-03] MEDS: rOPINIRole 0.25 MG TAB(REQUIP) PO SCH ×3 (08:18→20:18)
--- NOTE | 2017-05-03 08:23 | IPNPDOC ---
Subjective Date Seen The patient was seen on 05/03/17. Subjective Chief Complaint/HPI The patient is a 71-year-old female admitted with a reason for visit of Acute Respiratory Failure W/Hypoxia. General: Reports: ROS Unobtainable (poor historian), Denies: Chills, Night Sweats, Fatigue, Malaise, Normal Appetite, Other Symptoms Constitutional: Denies: Chills, Fever, Malaise, Night Sweats, Weakness, Fatigue , Weight Loss, Lethargy, Other Eyes: Denies: Pain, Vision change, Conjunctivae inflammation, Eyelid inflammation, Redness, Other ENT: Denies: Head Aches, Ear Pain, Dysphagia, Sinus Congestion, Post Nasal Drip , Sore Throat, Epistaxis, Other Symptoms Skin: Denies: Rash, Lesions, Jaundice, Bruising, Itching, Dry, Breakdown, Nail Changes, Other Pulmonary: Denies: Dyspnea, Cough, Pleuritic Chest Pain, Other Symptoms Cardiovascular: Denies: Chest Pain, Palpitations, Orthopnea, Paroxysmal Noc. Dyspnea, Edema, Lt Headedness, Other Symptoms Gastrointestinal: Denies: Nausea, Vomiting, Abdominal Pain, Diarrhea, Constipation, Melena, Hematochezia, Other Symptoms Objective Physical Examination General Exam: Positive: No Acute Distress, Negative: Cooperative Chest Exam: Positive: Diminished, Other (coarse breath sounds) Heart Exam: Positive: Rate Normal, Regular Rhythm Abdomen Exam: Positive: Normal bowel sounds, Soft, Negative: Tenderness Extremity Exam: Negative: Edema Psych Exam: Negative: Oriented x 3 Assessment /Plan Problems (1) Dysphagia Status: Chronic Problem Specific Plan: Repeat Tests Problem Text: concern for aspiration again. nothing by mouth - repeat swallow evaluation pending today. (2) Aspiration pneumonia Status: Acute Response to Treatment: Improving Problem Specific Plan: Monitor Clinically, Repeat Tests Problem Text: NPO - repeat swallow evaluation pending. Continue IV Zosyn. Respiratory treatments. Have weaned to supplemental O2 via nasal cannula. (3) Dementia Status: Chronic Problem Specific Plan: Monitor Clinically Problem Text: Lewy body dementia in the setting of Parkinsons Disease. (4) Fever Status: Resolved Problem Specific Plan: Monitor Clinically, Repeat Labs, Repeat Tests Problem Text: Likely aspiration pneumonia. (5) Hypernatremia Status: Acute Problem Specific Plan: Monitor Clinically, Repeat Labs Problem Text: Likely secondary to inadequate free water intake. Worsening - transitioned to D5W - rate increased. Nephrology consultation appreciated. (6) Pneumonitis Status: Acute Problem Specific Plan: Monitor Clinically, Repeat Labs Problem Text: As per above, secondary to aspiration pneumonia. (7) Tremor Problem Specific Plan: Consult Specialist, Monitor Clinically Problem Text: Did not tolerate Sinemet at home. Continue Requip. Neurology c/s appreciated. (8) Protein calorie malnutrition Status: Chronic Problem Specific Plan: Monitor Clinically Problem Text: As per above, secondary to poor PO intake. Patient now NPO, swallow evaluation pending. Proceed with PEG tube if fails. Daughter is currently managing medical decisions making. Plan/VTE VTE Prophylaxis Ordered?: Yes Plan Diet: Make NPO Activity: Continue Current Therapy: PT Respiratory: Wean Oxygen Diagnostics: Repeat Labs in AM, Other Diagnostics (swallow evaluation) Swallow evaluation pending today. Continue IV fluids for hypernatremia and for NPO status. Patient is full code, feeding tube if needed. Daughter is now responsible for medical decision making. Apparently HCP is actually patient's sister, who has given responsibility to daughter. VS, I&O, 24H, [facility] Vital Signs/I&O Vital Signs Date Time Temp Pulse Resp B/P (MAP) Pulse Ox O2 Delivery O2 Flow Rate FiO2 05/03/17 06:00 98.7 78 18 129/62 (84) 93 Nasal Cannula 2.0 05/01/17 18:00 35 I&O- Last 24 Hours up to 6 AM 05/03/17 06:00 Intake Total 1400 ml Output Total 0 ml Balance 1400 ml Laboratory Data 24H LABS Laboratory Tests 2 05/03/17 05:22: Anion Gap 8, Glomerular Filtration Rate > 60.0, Blood Urea Nitrogen 44H, Creatinine 0.77, Sodium Level 161*H, Potassium Level 3.4L, Chloride Level 124H, Carbon Dioxide Level 29, Calcium Level 9.4 CBC/BMP Laboratory Tests 05/03/17 05:22 Red Blood Count 3.91 L, Mean Corpuscular Volume 96.3 H, Mean Corpuscular Hemoglobin 31.2, Mean Corpuscular Hemoglobin Concent 32.5, Red Cell Distribution Width 12.7, Calcium Level 9.4 Microbiology Microbiology 04/29/17 Blood Culture - Preliminary, Resulted No Growth after 72 hours. All specime... 04/29/17 Blood Culture - Preliminary, Resulted No Growth after 72 hours. All specime... 04/29/17 Urine Culture - Final, Complete Escherichia Coli LAURA SLOAN MD May 03, 2017 08:23
[2017-05-03] MEDS: PANTOPRAZOLE 40MG INJ (PROTONIX) (C9113) IV SCH (08:24)
[2017-05-03 11:00] VITALS: BP 137/86
[2017-05-03 14:15] VITALS: BP 138/76
[2017-05-03] MEDS: PIPERACILLIN/TAZOBACTAM SOD 3.375 GM in D5W MINI-BAG PLUS 50 ML IV SCH (15:29)
--- NOTE | 2017-05-03 18:08 | IPN ---
DATE: 05/03/2017 Mrs. Chi is seen this morning on her bedside. She has been transferred out of ICU to regular medical floor. She remains noncommunicative and nonverbal. She has been receiving IV fluid and remains nothing by mouth due to aspiration pneumonia. PHYSICAL EXAMINATION: Temperature 98.7 degrees Fahrenheit, heart rate 78 per minute and respiratory rate 18 per minute. Blood pressure 129/62 mmHg and oxygen saturation 93% on 2 liters oxygen. Head is atraumatic. Superficial neck veins are prominent but there is no JVD. Oral mucosa is dry. Heart sounds are regular and lungs with no wheezing or rales. She has poor inspiratory effort. Abdomen soft and bowel sounds are present. Extremities have no leg edema and no cyanosis or clubbing. Neurologically she is noncommunicative and nonverbal. Skin has no rash or ulcers. Today's labs show WBC count 11.2, hemoglobin 12.2, hematocrit 37.7. Platelets 149. Sodium 161 and potassium 3.4. BUN 44 and creatinine 0.77. PROBLEMS: 1. Hypernatremia. Slight improvement in sodium level is noticed. We will continue with IV fluid of D5W at 80 mL/hour. 2. Hypokalemia. Potassium level is stable and she is receiving 20 mEq of potassium chloride in IV fluid. Electrolytes will be checked again tomorrow morning. 3. Acute renal failure. This is prerenal azotemia related to dehydration and we will continue to hydrate her as she is nothing by mouth. 4. Nutrition. Currently the patient is not receiving any nutrition. I would strongly recommend a feeding tube so the patient can receive free water along with her nutrition. 5. Pneumonia. She has been on Zosyn 4.5 grams every 6 hours. I will cut down the dose to 3.375 grams every 8 hours in view of her low body weight of only 40 kg.
[2017-05-03] MEDS: DONEPEZIL 5 MG TAB PO SCH (20:17)
[2017-05-03 21:00] VITALS: BP 128/66
[2017-05-04] MEDS: PIPERACILLIN/TAZOBACTAM SOD 3.375 GM in D5W MINI-BAG PLUS 50 ML IV SCH ×3 (00:09→15:13)
[2017-05-04] MEDS: HEPARIN SOD (PORCINE) 5000 UNITS/ML VIAL SC SCH ×3 (05:45→21:44)
[2017-05-04] MEDS: KCL 20MEQ IN D5W 1000ML 1,000 ML IV SCH ×2 (05:45→17:37)
[2017-05-04 06:00] VITALS: BP 141/73
[2017-05-04] MEDS: rOPINIRole 0.25 MG TAB(REQUIP) PO SCH ×3 (07:26→21:44)
[2017-05-04] MEDS: PANTOPRAZOLE 40MG INJ (PROTONIX) (C9113) IV SCH (07:34)
[2017-05-04] MEDS: IPRATROPIUM 0.5MG/ALBUTEROL 2.5MG INH SOL UD 3ML (DUONEB)(J7620) NEB SCH ×4 (07:59→20:18)
[2017-05-04] MEDS ORDERED: POTASSIUM CHLORIDE 10 MEQ SR TABLET PO ONE (08:00)
[2017-05-04 08:35] LABS: ANION GAP 9 MEQ/L (8-16); BLOOD UREA NITROGEN 29 MG/DL (7-18); CALCIUM LEVEL 8.9 MG/DL (8.8-10.2); CARBON DIOXIDE LEVEL 29 MEQ/L (21-32); CHLORIDE LEVEL 121 MEQ/L (98-107); CREATININE FOR GFR 0.47 MG/DL (0.55-1.02); GLOMERULAR FILTRATION RATE > 60.0 (>39); GLUCOSE, FASTING 130 MG/DL (83-110); POTASSIUM SERUM 3.7 MEQ/L (3.5-5.1); SODIUM LEVEL 159 MEQ/L (136-145)
[2017-05-04] MEDS: ACETAMINOPHEN 650 MG SUPP PR PRN ×2 (12:22→21:44)
[2017-05-04 14:00] VITALS: BP 140/87
--- NOTE | 2017-05-04 14:00 | IPNPDOC ---
Text Note Date of Service The patient was seen on 05/04/17. NOTE Subjective: Patient is a 71 year old female with a PMHx of Dementia (history of waxing and waning) and Parkinson's disease who presented to the ER after she was found down in her kitchen after a possible drug overdose. She presented to the ER and was put on CPAP because of respiratory depression. Patient was seen and examined at the bedside. She did not converse very much and did not answer questions appropriately. Objective: Vitals (See below) General: Lying in bed, no acute distress, comfortable, minimal words HEENT: NC, AT CVS: RRR, +S1S2 Lungs: Diminished breath sounds bilaterally Abdomen: Soft, ND, NT Extremities: - Edema, - Calf tenderness Assessment and plan: 1. Dysphagia - likely 2/2 progressive dementia, possible acute metabolic encephalopathy - Low grade fevers - Leukocytosis level trending down - CT chest 04/30: bilateral lower lobe tree in bud pattern compatible with LL pneumonitis; small R pleural effusions - Currently NPO - Will go for repeat swallow evaluation - Discussed with daughter; if unable to pass swallow evaluation will insert NG tube for feeding; agreed that she wants to progress with PEG tube if required 2. Acute metabolic encephalopathy - possibly 2/2 electrolyte abnormalities, possible 2/2 aspiration pneumonia, possibly 2/2 progressive dementia - daughter reports that this is not her baseline mental status; was reported to have been ambulating and eating on her own - no focal deficits - will continue to correct electrolytes and antibiotics for aspiration pneumonia - c/w Donepezil and Ropinirole 3. Aspiration pneumonia - Leukocytosis improving - c/w supplemental oxygen and titrate down as tolerated - c/w Zosyn (Day #2) 4. Hypernatremia - likely 2/2 poor oral intake - Na continues to trend down with free water - c/w D5W based fluids - Nephrology following 5. Tremor - Couldn't tolerate Sinemet at home - c/w Requip 6. Protein calorie malnutrition - 2/2 poor oral intake - See #1 7. Thrombocytopenia - possibly 2/2 infection - no evidence of bleeding - will monitor for now 8. GI prophylaxis - c/w Protonix 9. DVT prophylaxis - c/w Heparin SQ VS,Fishbone, I+O VS, Fishbone, I+O Laboratory Tests 05/04/17 07:51 Calcium Level 8.9 Vital Signs Date Time Temp Pulse Resp B/P (MAP) Pulse Ox O2 Delivery O2 Flow Rate FiO2 05/04/17 08:00 Nasal Cannula 2.0 05/04/17 06:00 99.5 85 20 141/73 (95) 94 05/01/17 18:00 35 I&O- Last 24 Hours up to 6 AM 05/04/17 06:00 Intake Total 1100 ml Output Total 0 ml Balance 1100 ml DAISHA STEWART MD May 04, 2017 14:00
[2017-05-04] MEDS: DONEPEZIL 5 MG TAB PO SCH (21:44)
--- NOTE | 2017-05-04 21:50 | IPN ---
DATE: 05/04/2017 Ms. hCi is seen this morning on her bedside. She is laying in the bed without any acute distress but eyes closed. She is poorly communicative. She has been nothing by mouth and receiving IV fluid due to hypernatremia. PHYSICAL EXAMINATION: Temperature 99.5 degrees Fahrenheit, heart rate 85 per minute and respiratory rate 20 per minute. Blood pressure 141/73 mmHg and oxygen saturation 94% on 2 liters oxygen. Intake and output records are incomplete as the patient has been incontinent. She is receiving IV fluid at 80 mL/hour and otherwise has been nothing by mouth. Her head is atraumatic. Neck is supple and without any JVD. Heart sounds are regular. Lungs with diminished breath sounds with poor inspiratory effort. Abdomen soft and bowel sounds are present. Extremities without any cyanosis or clubbing. Neurologically she remains noncommunicative. Today's labs show WBC count 11.2, hemoglobin 12.2 and hematocrit 37.7. Platelets 149. Sodium is down to 159, potassium 3.7, BUN 29 and creatinine 0.47. PROBLEMS: 1. Acute renal failure, prerenal azotemia improving with IV fluids. Will continue with the same and recheck her kidney function tomorrow morning. 2. Hypernatremia. This was related to dehydration and is improving gradually with IV D5W at 80 mL/hour. Will continue with the same and recheck her electrolytes tomorrow morning. 3. Hypokalemia. Potassium level has improved with IV potassium supplement in the fluid. We will continue with the same. 4. Malnutrition. The patient has chronic malnutrition due to poor oral intake with dementia. I recommend a feeding tube placement. 5. Pneumonia. The patient remains on Zosyn and afebrile for now. Her leukocytosis is also improving. Zosyn dose was adjusted yesterday.
[2017-05-04 22:00] VITALS: BP 138/67
[2017-05-05] MEDS: PIPERACILLIN/TAZOBACTAM SOD 3.375 GM in D5W MINI-BAG PLUS 50 ML IV SCH ×3 (00:01→16:50)
[2017-05-05] MEDS: HEPARIN SOD (PORCINE) 5000 UNITS/ML VIAL SC SCH ×3 (05:39→22:01)
[2017-05-05] MEDS: KCL 20MEQ IN D5W 1000ML 1,000 ML IV SCH ×2 (05:39→19:55)
[2017-05-05 06:00] VITALS: BP 147/79
[2017-05-05 06:57] LABS: ANION GAP 7 MEQ/L (8-16); BLOOD UREA NITROGEN 21 MG/DL (7-18); CALCIUM LEVEL 8.7 MG/DL (8.8-10.2); CARBON DIOXIDE LEVEL 28 MEQ/L (21-32); CHLORIDE LEVEL 118 MEQ/L (98-107); CREATININE FOR GFR 0.43 MG/DL (0.55-1.02); GLOMERULAR FILTRATION RATE > 60.0 (>39); GLUCOSE, FASTING 120 MG/DL (83-110); POTASSIUM SERUM 3.8 MEQ/L (3.5-5.1); SODIUM LEVEL 153 MEQ/L (136-145)
[2017-05-05] MEDS: IPRATROPIUM 0.5MG/ALBUTEROL 2.5MG INH SOL UD 3ML (DUONEB)(J7620) NEB SCH ×4 (07:37→20:04)
[2017-05-05] MEDS: PANTOPRAZOLE 40MG INJ (PROTONIX) (C9113) IV SCH (10:15)
[2017-05-05] MEDS: rOPINIRole 0.25 MG TAB(REQUIP) PO SCH ×3 (10:16→22:01)
[2017-05-05] MEDS: ACETAMINOPHEN 650 MG SUPP PR PRN (10:16)
--- NOTE | 2017-05-05 12:35 | IPNPDOC ---
Text Note Date of Service The patient was seen on 05/05/17. NOTE Subjective: Patient is a 71 year old female with a PMHx of Dementia (history of waxing and waning) and Parkinson's disease who presented to the ER after she was found down in her kitchen after a possible drug overdose. She presented to the ER and was put on CPAP because of respiratory depression. Patient was seen and examined at the bedside. She remained minimally conversive , reported that she did have some pain, but was unable to localize it. Nursing has advised that she has not been consuming much food. She has been started on a modified diet, however if she fails to increase her oral intake she will need to have an NG tube place. This was discussed with the daughter yesterday. Objective: Vitals (See below) General: Lying in bed, no acute distress, comfortable, minimal words HEENT: NC, AT CVS: RRR, +S1S2 Lungs: Diminished breath sounds bilaterally Abdomen: Soft, ND, NT Extremities: - Edema, - Calf tenderness Assessment and plan: 1. Dysphagia - likely 2/2 progressive dementia, possible acute metabolic encephalopathy - No recent fevers reported - Leukocytosis continues to improved - CT chest 04/30: bilateral lower lobe tree in bud pattern compatible with LL pneumonitis; small R pleural effusions - On modified diet; will go for repeat swallow evaluation - As per discussion with daughter; will insert NG tube for feeding; agreed that she wants to progress with PEG tube if required 2. Acute metabolic encephalopathy - possibly 2/2 electrolyte abnormalities, possible 2/2 aspiration pneumonia, possibly 2/2 progressive dementia - daughter reports that this is not her baseline mental status; was reported to have been ambulating and eating on her own - no focal deficits - will continue to correct electrolytes and antibiotics for aspiration pneumonia - improving - c/w Donepezil and Ropinirole 3. Aspiration pneumonia - Leukocytosis improving without any recent fevers - c/w supplemental oxygen and titrate down as tolerated - c/w Zosyn (Day #3) 4. Hypernatremia - likely 2/2 poor oral intake - Na continues to trend down with free water - c/w D5W based fluids - Nephrology following 5. Tremor - Couldn't tolerate Sinemet at home - c/w Requip 6. Protein calorie malnutrition - 2/2 poor oral intake - See #1 7. Thrombocytopenia - possibly 2/2 infection - no evidence of bleeding - will monitor for now 8. GI prophylaxis - c/w Protonix 9. DVT prophylaxis - c/w Heparin SQ VS,Fishbone, I+O VS, Fishbone, I+O Laboratory Tests 05/05/17 06:01 Calcium Level 8.7 L Vital Signs Date Time Temp Pulse Resp B/P (MAP) Pulse Ox O2 Delivery O2 Flow Rate FiO2 05/05/17 06:00 98.5 89 17 147/79 (101) 95 Nasal Cannula 2.0 05/01/17 18:00 35 I&O- Last 24 Hours up to 6 AM 05/05/17 06:00 Intake Total 1050 ml Output Total 0 ml Balance 1050 ml DAISHA STEWART MD May 05, 2017 12:35
[2017-05-05 12:55] LABS: EOS # 0.1 K/mm3 (0.0-0.50); EOS % 0.9 % (0.0-3.0); LARGE UNSTAINED CELL # 0.1 K/mm3 (0.0-0.4); LARGE UNSTAINED CELL % 0.8 % (0.0-4.0); LYMPH # 0.6 K/mm3 (1.5-4.5); LYMPH % 7.3 % (24.0-44.0); MEAN CORPUSCULAR HEMOGLOBIN 30.2 pg (27.0-33.0); MEAN CORPUSCULAR HGB CONC 31.9 g/dl (32.0-36.5); MEAN CORPUSCULAR VOLUME 94.8 fl (80.0-96.0); MONO # 0.3 K/mm3 (0.0-0.8); MONO % 3.7 % (0.0-5.0); NEUTROPHILS # 6.5 K/mm3 (1.8-7.7); NEUTROPHILS % 87.3 % (36.0-66.0); PLATELET COUNT, AUTOMATED 117 k/mm3 (150-450); RED CELL DISTRIBUTION WIDTH 12.4 % (11.5-14.5); WHITE BLOOD COUNT 7.5 K/mm3 (4.0-10.0)
[2017-05-05 14:00] VITALS: BP 133/71
[2017-05-05 22:00] VITALS: BP 145/67
[2017-05-05] MEDS: DONEPEZIL 5 MG TAB PO SCH (22:01)
[2017-05-06] MEDS: PIPERACILLIN/TAZOBACTAM SOD 3.375 GM in D5W MINI-BAG PLUS 50 ML IV SCH ×4 (00:44→23:45)
[2017-05-06] MEDS: HEPARIN SOD (PORCINE) 5000 UNITS/ML VIAL SC SCH ×3 (05:59→21:22)
[2017-05-06 06:00] VITALS: BP 155/77
--- NOTE | 2017-05-06 06:42 | IPN ---
DATE: 05/05/2017 SUBJECTIVE: Ms. Chi is seen this morning on her bedside. She is laying in the bed without any acute distress. She remains minimally communicative and today she was able to say at least a few words. PHYSICAL EXAMINATION: Temperature 98.5 degrees Fahrenheit, heart rate 88 per minute and respiratory rate 18 per minute. Blood pressure 147/79 mmHg and oxygen saturation 95% on her oxygen. Her head is atraumatic. Neck is supple and without jugular venous distention (JVD) or palpable cervical lymph nodes. Heart sounds are regular. Lungs have poor inspiratory effort but no wheezing or rales. Abdomen soft and nontender. Bowel sounds are normal. Extremities have no cyanosis or clubbing. LABORATORY DATA: Today's labs show sodium level 153 and potassium 3.8. BUN 21 and creatinine 0.43. Calcium level is 8.7 and glucose 120. PROBLEMS: 1. Hypernatremia. Sodium level is improving gradually and we will continue with intravenous (IV) fluid of dextrose 5% in water (D5W) at 80 mL per hour. A feeding tube is needed as the patient has history of recurrent aspiration pneumonia and poor oral intake. Feeding tube is likely to help with her nutrition and fluid intake. 2. Hypokalemia. Potassium level has improved gradually and we will continue with 20 mEq of potassium chloride in the bag of IV fluid. 3. Acute renal failure. The patient had dehydration causing acute renal failure and hypernatremia. She is improving with IV fluid and will continue with the same. Once she gets a feeding tube placed, then she can receive free water via her feeding tube. 4. Protein calorie malnutrition. The patient is not receiving any nutrition at this point other than just D5W. A feeding tube placement is recommended.
[2017-05-06 06:54] LABS: EOS # 0.1 K/mm3 (0.0-0.50); EOS % 1.2 % (0.0-3.0); LARGE UNSTAINED CELL # 0.1 K/mm3 (0.0-0.4); LARGE UNSTAINED CELL % 0.9 % (0.0-4.0); LYMPH # 0.7 K/mm3 (1.5-4.5); MEAN CORPUSCULAR HEMOGLOBIN 30.7 pg (27.0-33.0); MEAN CORPUSCULAR HGB CONC 33.3 g/dl (32.0-36.5); MEAN CORPUSCULAR VOLUME 92.1 fl (80.0-96.0); MONO # 0.3 K/mm3 (0.0-0.8); MONO % 3.7 % (0.0-5.0); NEUTROPHILS # 6.8 K/mm3 (1.8-7.7); PLATELET COUNT, AUTOMATED 120 k/mm3 (150-450); RED CELL DISTRIBUTION WIDTH 12.4 % (11.5-14.5); WHITE BLOOD COUNT 7.9 K/mm3 (4.0-10.0)
[2017-05-06 07:12] LABS: ALBUMIN 1.9 GM/DL (3.2-5.2); ALKALINE PHOSPHATASE 93 U/L (45-117); ALT/SGPT 61 U/L (12-78); ANION GAP 6 MEQ/L (8-16); AST/SGOT 43 U/L (15-37); BILIRUBIN,TOTAL 0.6 MG/DL (0.2-1.0); BLOOD UREA NITROGEN 15 MG/DL (7-18); CALCIUM LEVEL 8.7 MG/DL (8.8-10.2); CARBON DIOXIDE LEVEL 26 MEQ/L (21-32); CHLORIDE LEVEL 114 MEQ/L (98-107); CREATININE FOR GFR 0.44 MG/DL (0.55-1.02); GLOMERULAR FILTRATION RATE > 60.0 (>39); GLUCOSE, FASTING 120 MG/DL (83-110); MAGNESIUM LEVEL 2.2 MG/DL (1.8-2.4); POTASSIUM SERUM 3.8 MEQ/L (3.5-5.1); SODIUM LEVEL 146 MEQ/L (136-145); TOTAL PROTEIN 5.7 GM/DL (6.4-8.2)
[2017-05-06] MEDS: IPRATROPIUM 0.5MG/ALBUTEROL 2.5MG INH SOL UD 3ML (DUONEB)(J7620) NEB SCH ×4 (08:05→20:30)
[2017-05-06] MEDS: rOPINIRole 0.25 MG TAB(REQUIP) PO SCH ×3 (08:43→21:21)
[2017-05-06] MEDS: PANTOPRAZOLE 40MG INJ (PROTONIX) (C9113) IV SCH (08:43)
[2017-05-06] MEDS: KCL 20MEQ IN D5W 1000ML 1,000 ML IV SCH ×2 (10:40→23:45)
--- NOTE | 2017-05-06 13:02 | IPNPDOC ---
Text Note Date of Service The patient was seen on 05/06/17. NOTE Subjective: Patient is a 71 year old female with a PMHx of Dementia (history of waxing and waning) and Parkinson's disease who presented to the ER after she was found down in her kitchen after a possible drug overdose. She presented to the ER and was put on CPAP because of respiratory depression. Patient was seen and examined at the bedside. Currently she has not had any significant improvement in her mental status. She has had poor oral intake over the last 24 hours. Objective: Vitals (See below) General: Lying in bed, no acute distress, comfortable, minimal words HEENT: NC, AT CVS: RRR, +S1S2 Lungs: Diminished breath sounds bilaterally Abdomen: Soft, ND, NT Extremities: - Edema, - Calf tenderness Assessment and plan: 1. Dysphagia - likely 2/2 progressive dementia, less likely 2/2 acute metabolic encephalopathy - On modified diet - Consulted dietary; will perform calorie count - Discussed with Surgery (Dr. Dawn); will go for PEG tube insertion tomorrow - As per discussion with daughter; want to have her mother fed 2. Acute metabolic encephalopathy - possibly 2/2 electrolyte abnormalities, possible 2/2 aspiration pneumonia, possibly 2/2 progressive dementia - daughter reports that this is not her baseline mental status; was reported to have been ambulating and eating on her own - no focal deficits - will continue to correct electrolytes (Na) has been normalizing; Aspiration pneumonia has been resolving - c/w Donepezil and Ropinirole 3. Aspiration pneumonia - Leukocytosis resolved; s/p fevers - CT chest 04/30: bilateral lower lobe tree in bud pattern compatible with LL pneumonitis; small R pleural effusions - c/w supplemental oxygen and titrate down as tolerated - c/w Zosyn (Day #4) 4. Hypernatremia - likely 2/2 poor oral intake - Na continues to trend down with free water - c/w D5W based fluids - Nephrology following 5. Tremor - Couldn't tolerate Sinemet at home - c/w Requip 6. Protein calorie malnutrition - 2/2 poor oral intake - See #1 7. Thrombocytopenia - possibly 2/2 infection - no evidence of bleeding - will monitor for now 8. GI prophylaxis - c/w Protonix 9. DVT prophylaxis - c/w Heparin SQ VS,Fishbone, I+O VS, Fishrandye, I+O Laboratory Tests 05/06/17 06:19 Red Blood Count 3.61 L, Mean Corpuscular Volume 92.1, Mean Corpuscular Hemoglobin 30.7, Mean Corpuscular Hemoglobin Concent 33.3, Red Cell Distribution Width 12.4, Neutrophils (%) (Auto) 86.0 H, Lymphocytes (%) (Auto) 8.0 L, Monocytes (%) (Auto) 3.7, Eosinophils (%) (Auto) 1.2, Basophils (%) (Auto ) 0.0, Neutrophils # (Auto) 6.8, Lymphocytes # (Auto) 0.7 L, Monocytes # (Auto) 0.3, Eosinophils # (Auto) 0.1, Basophils # (Auto) 0.0, Calcium Level 8.7 L, Aspartate Amino Transf (AST/SGOT) 43 H, Alanine Aminotransferase (ALT/SGPT) 61, Alkaline Phosphatase 93, Total Bilirubin 0.6, Total Protein 5.7 L, Albumin 1.9 L Vital Signs Date Time Temp Pulse Resp B/P (MAP) Pulse Ox O2 Delivery O2 Flow Rate FiO2 05/06/17 06:00 98.8 57 19 155/77 (103) 97 Nasal Cannula 2.0 05/01/17 18:00 35 I&O- Last 24 Hours up to 6 AM 05/06/17 06:00 Intake Total 1350 ml Output Total 0 ml Balance 1350 ml DAISHA STEWART MD May 06, 2017 13:02
[2017-05-06 14:00] VITALS: BP 129/60
[2017-05-06] MEDS: DONEPEZIL 5 MG TAB PO SCH (21:21)
[2017-05-06 22:00] VITALS: BP 103/63
[2017-05-07] VITALS (8 sets, daily range): BP systolic 116–144; BP diastolic 56–83
[2017-05-07] MEDS: HEPARIN SOD (PORCINE) 5000 UNITS/ML VIAL SC SCH ×4 (06:39→21:20)
[2017-05-07 06:54] LABS: BASO % 0.1 % (0.0-1.0); EOS # 0.1 K/mm3 (0.0-0.50); EOS % 0.8 % (0.0-3.0); LARGE UNSTAINED CELL # 0.1 K/mm3 (0.0-0.4); LARGE UNSTAINED CELL % 1.5 % (0.0-4.0); LYMPH # 0.8 K/mm3 (1.5-4.5); LYMPH % 8.4 % (24.0-44.0); MEAN CORPUSCULAR HEMOGLOBIN 30.4 pg (27.0-33.0); MEAN CORPUSCULAR HGB CONC 32.9 g/dl (32.0-36.5); MEAN CORPUSCULAR VOLUME 92.6 fl (80.0-96.0); MONO # 0.3 K/mm3 (0.0-0.8); MONO % 3.3 % (0.0-5.0); NEUTROPHILS # 7.1 K/mm3 (1.8-7.7); NEUTROPHILS % 85.8 % (36.0-66.0); PLATELET COUNT, AUTOMATED 150 k/mm3 (150-450); RED CELL DISTRIBUTION WIDTH 12.6 % (11.5-14.5); WHITE BLOOD COUNT 8.3 K/mm3 (4.0-10.0)
[2017-05-07] MEDS: IPRATROPIUM 0.5MG/ALBUTEROL 2.5MG INH SOL UD 3ML (DUONEB)(J7620) NEB SCH ×4 (07:14→19:40)
[2017-05-07 07:17] LABS: ALBUMIN/GLOBULIN RATIO 0.51 (1.00-1.93); ALKALINE PHOSPHATASE 138 U/L (45-117); ALT/SGPT 75 U/L (12-78); ANION GAP 9 MEQ/L (8-16); AST/SGOT 52 U/L (15-37); BILIRUBIN,TOTAL 0.5 MG/DL (0.2-1.0); BLOOD UREA NITROGEN 10 MG/DL (7-18); CALCIUM LEVEL 8.9 MG/DL (8.8-10.2); CARBON DIOXIDE LEVEL 25 MEQ/L (21-32); CHLORIDE LEVEL 108 MEQ/L (98-107); CREATININE FOR GFR 0.53 MG/DL (0.55-1.02); GLOMERULAR FILTRATION RATE > 60.0 (>39); GLUCOSE, FASTING 100 MG/DL (83-110); MAGNESIUM LEVEL 2.3 MG/DL (1.8-2.4); POTASSIUM SERUM 3.6 MEQ/L (3.5-5.1); SODIUM LEVEL 142 MEQ/L (136-145); TOTAL PROTEIN 5.9 GM/DL (6.4-8.2)
[2017-05-07] MEDS: rOPINIRole 0.25 MG TAB(REQUIP) PO SCH ×3 (08:02→21:21)
--- NOTE | 2017-05-07 08:12 | IPN ---
DATE:05/06/2017 SUBJECTIVE: Ms. Chi is seen this morning on her bedside. She is laying in the bed with eyes closed. She is minimally responsive. PHYSICAL EXAMINATION: Temperature 98.8 degrees Fahrenheit, heart rate 57 per minute and respiratory rate 19 per minute. Blood pressure 155/77 mmHg and oxygen saturation 97%. Her head is atraumatic. Neck veins are not abnormally distended. Neck is supple and there is no thyroid enlargement. Heart sounds are regular and lungs have moderate bilateral air entry with poor inspiratory effort. Abdomen soft and nontender. Bowel sounds are present. Extremities have no cyanosis or clubbing. Neurologically she is minimally communicative. LABORATORY DATA: Today's labs show WBC count 7.9, hemoglobin 11.1 and hematocrit 33.2. Sodium is down to 146 and potassium 3.8. BUN 15 and creatinine 0.44. PROBLEMS: 1. Hypernatremia. Sodium level is improving nicely and the patient remains on dextrose 5% in water (D5W) and 80 mL per hour. We anticipate her sodium to be normal by tomorrow. 2. Acute renal failure. This was due to dehydration and has improved. We will continue with current intravenous (IV) fluid for now. 3. Nutrition. The patient is not receiving much nutrition. Recommendation for a feeding tube has been made. She has been on modified diet and waiting for a repeat swallowing evaluation. 4. Aspiration pneumonia. The patient remains on Zosyn and leukocytosis has improved. All other issues are being addressed by hospitalist service. PATRICIA
--- NOTE | 2017-05-07 08:14 | CR ---
DATE OF CONSULTATION: 05/06/2017 REASON FOR CONSULTATION: Percutaneous endoscopic gastrostomy (PEG) placement. HISTORY OF PRESENT ILLNESS: The patient is a 71-year-old female with a history of dementia, chronic obstructive pulmonary disease (COPD), Parkinson's disease and chronic malnutrition. She came into the hospital on April 18 for hypoxemia and was treated for likely aspiration pneumonia. Since then she has had no other difficulties with being able to tolerate food. She has failed a couple of swallow evaluations. She is also dealing with hypernatremia currently, acute renal failure and is being followed by Dr. Norton. She is unable to give me much information during exam; however, I was able to speak with a daughter over the phone who states that prior to her coming into the hospital she was eating and drinking well and was able to ambulate and perform most of her activities of daily living on her own. She does not feel that she is anywhere near back to her baseline currently and she is in agreement to have the feeding tube placed if it will help to increase her nutrition at this point. PAST MEDICAL HISTORY: Dementia, Parkinson's, pneumonia, malnutrition, respiratory insufficiency. PAST SURGICAL HISTORY: Unknown. ALLERGIES: FLUTICASONE, SERTRALINE, SULFA DRUGS. HOME MEDICATIONS: Please see medical record. SOCIAL HISTORY: Denies drug, alcohol, tobacco usage. FAMILY HISTORY: Noncontributory. REVIEW OF SYSTEMS: Unable to obtain. PHYSICAL EXAMINATION: GENERAL: Patient is awake. HEART: S1, S2. Regular rate and rhythm. LUNGS: Clear to auscultation bilaterally. ABDOMEN: Soft, nontender, nondistended. No signs of any incisions in the left upper abdomen. EXTREMITIES: No clubbing, cyanosis or edema. LABORATORY DATA: Sodium 146, potassium 3.8, creatinine 0.44, albumin 1.9, white count 7.9, hemoglobin 11.1. IMAGING STUDIES Chest CT from 04/30/2017 shows bilateral lower lobe tree and bud pattern compatible with lower lobe pneumonitis. Small right pleural effusion. ASSESSMENT AND PLAN: The patient is a 71-year-old female with dementia, protein calorie malnutrition, dysphagia and recent aspiration pneumonia. Recommendation from the primary is to have a feeding tube placed to supplement nutrition and hydration. I have discussed all of this with the patient's daughter, Aiax Burgos, who is in agreement and will be available tomorrow morning to have the PEG tube placed in the operating room. She will be here to discuss this with me again in person, as well as to sign consents for both myself and anesthesia. Risks and benefits of the procedure, not limited to, but including bleeding, infection, perforation, damage to surrounding structures, need for further surgery were discussed in detail with the patient's daughter. I also explained to her that this is for supplementation usage and that she is still able to eat and drink on her own and as long as the catheter is in for at least 2 weeks, it can be removed at any time. She understands and will be here to sign consent tomorrow.
[2017-05-07] MEDS: KCL 20MEQ IN D5W 1000ML 1,000 ML IV SCH (08:50)
[2017-05-07] MEDS: PIPERACILLIN/TAZOBACTAM SOD 3.375 GM in D5W MINI-BAG PLUS 50 ML IV SCH ×2 (08:54→16:38)
[2017-05-07] MEDS: PANTOPRAZOLE 40MG INJ (PROTONIX) (C9113) IV SCH (08:54)
[2017-05-07] MEDS ORDERED: LIDOCAINE 2% INJ 100 MG/5 ML SDV (FOR ANES.) As Ordered ONE (10:22)
[2017-05-07] MEDS ORDERED: PROPOFOL 200 MG/20 ML VIAL As Ordered ONE (10:22)
[2017-05-07] MEDS ORDERED: LIDOCAINE 1% SDV INJ 30 ML VIAL As Ordered ONE (11:16)
[2017-05-07] MEDS ORDERED: BUPIVACAINE HCL 0.25% 30 ML VIAL As Ordered ONE (11:16)
--- NOTE | 2017-05-07 11:49 | IPNPDOC ---
Text Note Date of Service The patient was seen on 05/07/17. NOTE Subjective: Patient is a 71 year old female with a PMHx of Dementia (history of waxing and waning) and Parkinson's disease who presented to the ER after she was found down in her kitchen after a possible drug overdose. She presented to the ER and was put on CPAP because of respiratory depression. Patient was seen and examined at the bedside. She was seen sitting up in bed working with physical therapy. However patient still appears very confused and sleepy. Patient is scheduled for a PEG tube placement this afternoon. Objective: Vitals (See below) General: Lying in bed, no acute distress, comfortable, minimal words HEENT: NC, AT CVS: RRR, +S1S2 Lungs: Diminished breath sounds bilaterally Abdomen: Soft, ND, NT Extremities: - Edema, - Calf tenderness Assessment and plan: 1. Dysphagia - likely 2/2 progressive dementia, less likely 2/2 acute metabolic encephalopathy - On modified diet - Consulted dietary; will perform calorie count - Dr. Dawn has been consulted; will go for PEG tube placement today - Will start PEG tube feedings when cleared by surgery - NPO for OR today 2. Acute metabolic encephalopathy - possibly 2/2 electrolyte abnormalities, possible 2/2 aspiration pneumonia, possibly 2/2 progressive dementia - daughter reports that this is not her baseline mental status; was reported to have been ambulating and eating on her own - no focal deficits - Na has normalized; Aspiration pneumonia improvign - c/w Donepezil and Ropinirole 3. Aspiration pneumonia - Leukocytosis resolved; s/p fevers - CT chest 04/30: bilateral lower lobe tree in bud pattern compatible with LL pneumonitis; small R pleural effusions - c/w supplemental oxygen and titrate down as tolerated - c/w Zosyn (Day #5) 4. s/p Hypernatremia - likely 2/2 poor oral intake - Na continues to trend down with free water - c/w D5W based fluids - Nephrology following 5. Tremor - Couldn't tolerate Sinemet at home - c/w Requip 6. Protein calorie malnutrition - 2/2 poor oral intake - See #1 7. s/p Thrombocytopenia - possibly 2/2 infection - no evidence of bleeding - will monitor for now 8. GI prophylaxis - c/w Protonix 9. DVT prophylaxis - c/w Heparin SQ VS,Fishbone, I+O VS, Fishbone, I+O Laboratory Tests 05/07/17 06:35 Red Blood Count 3.87 L, Mean Corpuscular Volume 92.6, Mean Corpuscular Hemoglobin 30.4, Mean Corpuscular Hemoglobin Concent 32.9, Red Cell Distribution Width 12.6, Neutrophils (%) (Auto) 85.8 H, Lymphocytes (%) (Auto) 8.4 L, Monocytes (%) (Auto) 3.3, Eosinophils (%) (Auto) 0.8, Basophils (%) (Auto ) 0.1, Neutrophils # (Auto) 7.1, Lymphocytes # (Auto) 0.8 L, Monocytes # (Auto) 0.3, Eosinophils # (Auto) 0.1, Basophils # (Auto) 0.0, Calcium Level 8.9, Aspartate Amino Transf (AST/SGOT) 52 H, Alanine Aminotransferase (ALT/SGPT) 75, Alkaline Phosphatase 138 H, Total Bilirubin 0.5, Total Protein 5.9 L, Albumin 2.0 L Vital Signs Date Time Temp Pulse Resp B/P (MAP) Pulse Ox O2 Delivery O2 Flow Rate FiO2 05/07/17 06:00 98.6 87 18 116/64 (81) 94 Nasal Cannula 2.0 05/01/17 18:00 35 I&O- Last 24 Hours up to 6 AM 05/07/17 06:00 Intake Total 1970 ml Output Total 0 ml Balance 1970 ml DAISHA STEWART MD May 07, 2017 11:49
[2017-05-07] MEDS ORDERED: LR 1,000 ML IV SCH (12:45)
[2017-05-07] MEDS ORDERED: fentaNYL 100 MCG/2 ML INJECTION (J3010) IV PRN (12:45)
[2017-05-07] MEDS: DONEPEZIL 5 MG TAB PO SCH (21:21)
[2017-05-08] MEDS: PIPERACILLIN/TAZOBACTAM SOD 3.375 GM in D5W MINI-BAG PLUS 50 ML IV SCH ×3 (00:54→16:33)
[2017-05-08 02:00] VITALS: BP 138/60
[2017-05-08] MEDS: HEPARIN SOD (PORCINE) 5000 UNITS/ML VIAL SC SCH ×3 (05:34→22:11)
[2017-05-08 06:00] VITALS: BP 134/71
[2017-05-08 06:21] LABS: BASO % 0.1 % (0.0-1.0); EOS # 0.1 K/mm3 (0.0-0.50); EOS % 0.7 % (0.0-3.0); LARGE UNSTAINED CELL # 0.1 K/mm3 (0.0-0.4); LARGE UNSTAINED CELL % 1.1 % (0.0-4.0); LYMPH # 0.6 K/mm3 (1.5-4.5); LYMPH % 6.9 % (24.0-44.0); MEAN CORPUSCULAR HEMOGLOBIN 30.4 pg (27.0-33.0); MEAN CORPUSCULAR HGB CONC 33.4 g/dl (32.0-36.5); MONO # 0.5 K/mm3 (0.0-0.8); MONO % 5.6 % (0.0-5.0); NEUTROPHILS # 7.8 K/mm3 (1.8-7.7); NEUTROPHILS % 85.6 % (36.0-66.0); PLATELET COUNT, AUTOMATED 169 k/mm3 (150-450); RED CELL DISTRIBUTION WIDTH 12.6 % (11.5-14.5); WHITE BLOOD COUNT 9.1 K/mm3 (4.0-10.0)
[2017-05-08 07:06] LABS: ALBUMIN 1.8 GM/DL (3.2-5.2); ALKALINE PHOSPHATASE 134 U/L (45-117); ALT/SGPT 70 U/L (12-78); ANION GAP 10 MEQ/L (8-16); AST/SGOT 41 U/L (15-37); BILIRUBIN,TOTAL 0.4 MG/DL (0.2-1.0); BLOOD UREA NITROGEN 9 MG/DL (7-18); CALCIUM LEVEL 8.2 MG/DL (8.8-10.2); CARBON DIOXIDE LEVEL 22 MEQ/L (21-32); CHLORIDE LEVEL 110 MEQ/L (98-107); CREATININE FOR GFR 0.27 MG/DL (0.55-1.02); GLOMERULAR FILTRATION RATE > 60.0 (>39); GLUCOSE, FASTING 106 MG/DL (83-110); MAGNESIUM LEVEL 2.1 MG/DL (1.8-2.4); POTASSIUM SERUM 3.8 MEQ/L (3.5-5.1); SODIUM LEVEL 142 MEQ/L (136-145); TOTAL PROTEIN 5.4 GM/DL (6.4-8.2)
[2017-05-08] MEDS: KCL 20MEQ IN D5W 1000ML 1,000 ML IV SCH (07:10)
[2017-05-08] MEDS: IPRATROPIUM 0.5MG/ALBUTEROL 2.5MG INH SOL UD 3ML (DUONEB)(J7620) NEB SCH ×4 (07:29→19:57)
[2017-05-08] MEDS: rOPINIRole 0.25 MG TAB(REQUIP) PO SCH ×3 (09:13→22:12)
[2017-05-08] MEDS: PANTOPRAZOLE 40MG INJ (PROTONIX) (C9113) IV SCH (09:13)
[2017-05-08 10:00] VITALS: BP 134/65
--- NOTE | 2017-05-08 12:51 | IPN ---
DATE OF SERVICE: 05/07/2017 SUBJECTIVE: The patient was seen and examined at the bedside today morning. She was laying in bed in no apparent distress at this time. She reports that she is hungry. She continues to be on IV fluid hydration at this time. Sodium continues to improve. It is down to 142 now. The patient is hemodynamically stable at this time. REVIEW OF SYSTEMS: The patient is unable to provide a reliable review of systems; however, she denies any shortness of breath, chest pain, or pain in abdomen. She reports that she is hungry and starving and I was unable to do the rest of the review of systems. OBJECTIVE: VITAL SIGNS: Temperature 98.6 degrees Fahrenheit, blood pressure 116/64, pulse 87, respiratory rate 18 and saturating 94% on nasal cannula at 2 liters. INTAKE AND OUTPUT: Urine output is not recorded. The patient is voiding in her diaper. She had 9 incontinent voids yesterday. Weight on the bed scale is not available today. PHYSICAL EXAMINATION: GENERAL: The patient is awake, alert, oriented times two, laying in bed, in no apparent distress. HEAD AND NECK EXAM: Pupils equally round and reactive to light. Mucous membranes are moist. The patient is weak and cachectic with temporal wasting. Neck is supple. There is no jugular venous distention (JVD). CARDIOVASCULAR: S1, S2. Regular rate. No murmur, rub or gallop. RESPIRATORY: Chest is clear to auscultation bilaterally. Bilateral equal air entry. No rales or rhonchi. ABDOMEN: Soft. Nontender. Positive bowel sounds. No organomegaly. EXTREMITIES: No clubbing or cyanosis. Pulses are 2+. No edema of the extremities. The patient does not move her lower extremities and reports that she is feeling weak. CENTRAL NERVOUS SYSTEM: The patient is oriented times two. She follows the commands. She moves upper extremities to command. SKIN: The patient has a dressing on the left side of the hip most likely because of the skin ulcer. LAB REVIEW: CBC showed a WBC of 8.3, hemoglobin 11.8, and platelets are 150. BMP showed sodium 142, potassium 3.6, chloride 108, bicarbonate 25, BUN 10, creatinine 0.5, glucose 100, calcium 8.9, magnesium 2.3, AST 52, ALT 75, alkaline phosphatase 138, albumin 2. MICROBIOLOGY: Urine culture is growing more than 100,000 E. Coli. CURRENT INPATIENT MEDICATIONS: The patient's medications were all reviewed by me. She was on 20 mEq of KCl in D5W. I have decreased the rate to 60 mL/hr since sodium is within the normal range now. She continues to be on IV Zosyn. ASSESSMENT: 71-year-old female who is bedridden with decreased by mouth intake. Nephrology service is following for electrolyte abnormalities, metabolic encephalopathy and urinary tract infection. The patient also has aspiration pneumonia. PLAN: 1. Hypernatremia. The patient's sodium level is improving. Sodium is down to 142. I have decreased the IV fluid rate to 60 mL/hr. The family needs to decide about the possible PEG tube placement. The patient will become hypernatremic again if she is unable to take diet and water orally. 2. Acute kidney injury. The patient's creatinine has improved to 0.5 now. It was secondary to dehydration and volume depletion. 3. Hypokalemia. Potassium is stable at 3.6. Continue the potassium in the IV fluids at this time. 4. E. Coli urinary tract infection. The patient is currently on Zosyn. E. Coli is sensitive to Zosyn as well. The treatment for aspiration pneumonitis would cover UTI as well. 5. Aspiration pneumonitis. The patient is currently on Zosyn. White cell count has improved to normal. Last dose of Zosyn will be on 05/10/2017. 6. Protein calorie malnutrition. It is secondary to decreased by mouth intake which has led to electrolyte abnormality as well. The patient is for PEG tube insertion today by Dr. Dawn.
--- NOTE | 2017-05-08 13:22 | IPNPDOC ---
Text Note Date of Service The patient was seen on 05/08/17. NOTE Subjective: Patient is a 71 year old female with a PMHx of Dementia (history of waxing and waning) and Parkinson's disease who presented to the ER after she was found down in her kitchen after a possible drug overdose. She presented to the ER and was put on CPAP because of respiratory depression. Patient was seen and examined at the bedside. She is noted to be more oriented today, still does not open her eyes and appears sleepy. No other complaints from PEG tube insertion yesterday. Objective: Vitals (See below) General: Lying in bed, no acute distress, comfortable, oriented x2 HEENT: NC, AT CVS: RRR, +S1S2 Lungs: Diminished breath sounds bilaterally Abdomen: Soft, ND, NT Extremities: - Edema, - Calf tenderness Assessment and plan: 1. Dysphagia - likely 2/2 progressive dementia, less likely 2/2 acute metabolic encephalopathy - On modified diet - Consulted dietary; will perform calorie count - Dr. Dawn has been consulted; s/p PEG tube placement; will have feeding advanced today as per Surgery 2. Acute metabolic encephalopathy - possibly 2/2 electrolyte abnormalities, possible 2/2 aspiration pneumonia, possibly 2/2 progressive dementia - daughter reports that this is not her baseline mental status; was reported to have been ambulating and eating on her own - currently she appears to have improvement in her mental status; will continue to monitor - physical without any focal deficits - Na has normalized; Aspiration pneumonia improving - c/w Donepezil and Ropinirole 3. Aspiration pneumonia - Leukocytosis resolved; s/p fevers - CT chest 04/30: bilateral lower lobe tree in bud pattern compatible with LL pneumonitis; small R pleural effusions - c/w supplemental oxygen and titrate down as tolerated - c/w Zosyn (Day #6 of 7) 4. s/p Hypernatremia - likely 2/2 poor oral intake - Na normalized - s/p D5W based fluids - Nephrology has signed off - appreciate their input 5. Tremor - Couldn't tolerate Sinemet at home - c/w Requip 6. Protein calorie malnutrition - 2/2 poor oral intake - See #1 7. s/p Thrombocytopenia - possibly 2/2 infection - no evidence of bleeding - will monitor for now 8. GI prophylaxis - c/w Protonix 9. DVT prophylaxis - c/w Heparin SQ Disposition: - Will c/w physical therapy - Plan for placement to half-way VS,Bechely, I+O VS, Bebone, I+O Laboratory Tests 05/08/17 05:58 Red Blood Count 3.42 L, Mean Corpuscular Volume 91.0, Mean Corpuscular Hemoglobin 30.4, Mean Corpuscular Hemoglobin Concent 33.4, Red Cell Distribution Width 12.6, Neutrophils (%) (Auto) 85.6 H, Lymphocytes (%) (Auto) 6.9 L, Monocytes (%) (Auto) 5.6 H, Eosinophils (%) (Auto) 0.7, Basophils (%) ( Auto) 0.1, Neutrophils # (Auto) 7.8 H, Lymphocytes # (Auto) 0.6 L, Monocytes # ( Auto) 0.5, Eosinophils # (Auto) 0.1, Basophils # (Auto) 0.0, Calcium Level 8.2 L , Aspartate Amino Transf (AST/SGOT) 41 H, Alanine Aminotransferase (ALT/SGPT) 70 , Alkaline Phosphatase 134 H, Total Bilirubin 0.4, Total Protein 5.4 L, Albumin 1.8 L Vital Signs Date Time Temp Pulse Resp B/P (MAP) Pulse Ox O2 Delivery O2 Flow Rate FiO2 05/08/17 10:00 98.6 101 18 134/65 (88) 96 Nasal Cannula 2.0 I&O- Last 24 Hours up to 6 AM 05/08/17 06:00 Intake Total 620 ml Output Total 0 ml Balance 620 ml DAISHA STEWART MD May 08, 2017 13:22
[2017-05-08 14:00] VITALS: BP 135/65
[2017-05-08 18:00] VITALS: BP 136/64
[2017-05-08 22:00] VITALS: BP 131/60
[2017-05-08] MEDS: DONEPEZIL 5 MG TAB PO SCH (22:12)
[2017-05-09] MEDS: PIPERACILLIN/TAZOBACTAM SOD 3.375 GM in D5W MINI-BAG PLUS 50 ML IV SCH ×4 (00:07→23:21)
[2017-05-09] MEDS: HEPARIN SOD (PORCINE) 5000 UNITS/ML VIAL SC SCH ×3 (05:52→23:20)
[2017-05-09 06:00] VITALS: BP_SYST 131; BP_SYST 148; BP_DIAS 61; BP_DIAS 63
[2017-05-09 06:12] LABS: BASO % 0.1 % (0.0-1.0); EOS % 0.6 % (0.0-3.0); LARGE UNSTAINED CELL # 0.1 K/mm3 (0.0-0.4); LARGE UNSTAINED CELL % 1.3 % (0.0-4.0); LYMPH # 0.5 K/mm3 (1.5-4.5); LYMPH % 5.2 % (24.0-44.0); MEAN CORPUSCULAR HEMOGLOBIN 30.1 pg (27.0-33.0); MEAN CORPUSCULAR VOLUME 91.2 fl (80.0-96.0); MONO # 0.2 K/mm3 (0.0-0.8); MONO % 2.9 % (0.0-5.0); NEUTROPHILS # 7.2 K/mm3 (1.8-7.7); NEUTROPHILS % 89.8 % (36.0-66.0); PLATELET COUNT, AUTOMATED 205 k/mm3 (150-450); RED CELL DISTRIBUTION WIDTH 13.2 % (11.5-14.5)
[2017-05-09 06:32] LABS: ALBUMIN 1.7 GM/DL (3.2-5.2); ALBUMIN/GLOBULIN RATIO 0.45 (1.00-1.93); ALKALINE PHOSPHATASE 151 U/L (45-117); ALT/SGPT 61 U/L (12-78); ANION GAP 6 MEQ/L (8-16); AST/SGOT 27 U/L (15-37); BILIRUBIN,TOTAL 0.3 MG/DL (0.2-1.0); BLOOD UREA NITROGEN 12 MG/DL (7-18); CALCIUM LEVEL 8.4 MG/DL (8.8-10.2); CARBON DIOXIDE LEVEL 27 MEQ/L (21-32); CHLORIDE LEVEL 110 MEQ/L (98-107); CREATININE FOR GFR 0.44 MG/DL (0.55-1.02); GLUCOSE, FASTING 138 MG/DL (83-110); MAGNESIUM LEVEL 2.2 MG/DL (1.8-2.4); POTASSIUM SERUM 3.6 MEQ/L (3.5-5.1); SODIUM LEVEL 143 MEQ/L (136-145); TOTAL PROTEIN 5.5 GM/DL (6.4-8.2)
[2017-05-09 06:38] LABS: GLOMERULAR FILTRATION RATE > 60.0 (>39)
[2017-05-09] MEDS: IPRATROPIUM 0.5MG/ALBUTEROL 2.5MG INH SOL UD 3ML (DUONEB)(J7620) NEB SCH ×4 (07:19→19:44)
[2017-05-09] MEDS: PANTOPRAZOLE 40MG INJ (PROTONIX) (C9113) IV SCH (08:37)
[2017-05-09] MEDS: rOPINIRole 0.25 MG TAB(REQUIP) PO SCH ×3 (08:38→23:20)
--- NOTE | 2017-05-09 09:13 | RO ---
DATE OF PROCEDURE: 05/07/2017 PREOPERATIVE DIAGNOSIS: Dysphagia. POSTOPERATIVE DIAGNOSIS: Dysphagia. PROCEDURE: Percutaneous endoscopic gastrostomy (PEG) tube placement. SURGEON: Dr. Mason Dawn PRODUCT MARKETING ANALYST: Dr. Colin ANESTHESIA: IV sedation with 3 mL of 1% lidocaine local. COMPLICATIONS: None. INDICATIONS FOR PROCEDURE: The patient is a 71-year-old female who presents with aspiration pneumonia, dementia and difficulty with by mouth intake resulting in protein calorie malnutrition. She was treated for aspiration pneumonia and failed swallow evaluations. Therefore, I was asked to place a feeding tube. The risks and benefits of the procedure were discussed in detail with the patient's daughter who is the power of real estate associate attorney. The risks including bleeding, infection, perforation, damage to surrounding structures, and possible need for further surgery were discussed in detail with the family and consent was signed and the procedure was planned. PROCEDURE: The patient brought back to operating room six after sufficient sedation and the abdomen sterilely prepped and draped with chlorhexidine. Next, the gastroscope was passed through the esophagus into the stomach and the stomach was inflated. Once the stomach was inflated, I was able to palpate through the abdominal wall and visualize it through the endoscope just over area where I was able to palpate in the left upper quadrant. Three mL of lidocaine was injected in skin and subcutaneous tissue. Next, a needle was passed through the abdominal wall into the stomach under direct visualization and a guidewire was passed. The guidewire was grabbed with a snare through the endoscope and brought out through the mouth. The feeding tube was then passed over top of the guidewire into the stomach and out through the abdominal wall with minimal resistance. The tube was cut to length. A bumper was placed and the caps were placed on the end of the tube. The gastroscope was passed back inside one more time to confirm proper placement. A picture was taken to confirm, thus ending the procedure. Betadine jelly was placed around the base of the tube and covered with a 4x4. The patient was then awakened from anesthesia and sent to the postanesthesia care unit (PACU) in stable condition.
--- NOTE | 2017-05-09 10:00 | IPNPDOC ---
Text Note Date of Service The patient was seen on 05/09/17. NOTE Subjective: Patient is a 71 year old female with a PMHx of Dementia (history of waxing and waning) and Parkinson's disease who presented to the ER after she was found down in her kitchen after a possible drug overdose. She presented to the ER and was put on CPAP because of respiratory depression. Patient was seen and examined at the bedside. She has been opening her eyes today. She is able to answer some questions appropriately. She denies any pain. She is noted to be more oriented today, still does not open her eyes and appears sleepy. No other complaints from PEG tube insertion yesterday. Objective: Vitals (See below) General: Lying in bed, no acute distress, comfortable, oriented x2 HEENT: NC, AT CVS: RRR, +S1S2 Lungs: Diminished breath sounds bilaterally Abdomen: Soft, ND, NT Extremities: - Edema, - Calf tenderness Assessment and plan: 1. Dysphagia - likely 2/2 progressive dementia, less likely 2/2 acute metabolic encephalopathy - On modified diet and tube feedings - s/p PEG tube placement (POD#2); has been tolerating tube feedings 2. Acute metabolic encephalopathy - possibly 2/2 progressive dementia; possibly 2/2 electrolyte abnormalities and aspiration pneumonia - Currently appears to be improving; is able to answer some questions appropriately, has been opening eyes - physical without any focal deficits - Na has normalized; Aspiration pneumonia improving - c/w Donepezil and Ropinirole 3. Aspiration pneumonia - Leukocytosis resolved; s/p fevers - CT chest 04/30: bilateral lower lobe tree in bud pattern compatible with LL pneumonitis; small R pleural effusions - c/w supplemental oxygen and titrate down as tolerated - c/w Zosyn (Day #7 of 7); will stop Zosyn today 4. s/p Hypernatremia - likely 2/2 poor oral intake - Na normalized - s/p D5W based fluids - Nephrology has signed off - appreciate their input 5. Tremor - Couldn't tolerate Sinemet at home - c/w Requip 6. Protein calorie malnutrition - 2/2 poor oral intake - See #1 7. s/p Thrombocytopenia - possibly 2/2 infection - no evidence of bleeding - will monitor for now 8. GI prophylaxis - c/w Protonix 9. DVT prophylaxis - c/w Heparin SQ Disposition: - Will c/w physical therapy - Plan for placement to custodial VS,Bechely, I+O VS, Fishbone, I+O Laboratory Tests 05/09/17 05:51 Red Blood Count 3.30 L, Mean Corpuscular Volume 91.2, Mean Corpuscular Hemoglobin 30.1, Mean Corpuscular Hemoglobin Concent 33.0, Red Cell Distribution Width 13.2, Neutrophils (%) (Auto) 89.8 H, Lymphocytes (%) (Auto) 5.2 L, Monocytes (%) (Auto) 2.9, Eosinophils (%) (Auto) 0.6, Basophils (%) (Auto ) 0.1, Neutrophils # (Auto) 7.2, Lymphocytes # (Auto) 0.5 L, Monocytes # (Auto) 0.2, Eosinophils # (Auto) 0.0, Basophils # (Auto) 0.0, Calcium Level 8.4 L, Aspartate Amino Transf (AST/SGOT) 27, Alanine Aminotransferase (ALT/SGPT) 61, Alkaline Phosphatase 151 H, Total Bilirubin 0.3, Total Protein 5.5 L, Albumin 1.7 L Vital Signs Date Time Temp Pulse Resp B/P (MAP) Pulse Ox O2 Delivery O2 Flow Rate FiO2 05/09/17 06:00 98.2 88 19 131/61 (84) 100 Nasal Cannula 2.0 I&O- Last 24 Hours up to 6 AM 05/09/17 06:00 Intake Total 1620 ml Output Total 0 ml Balance 1620 ml DAISHA STEWART MD May 09, 2017 10:00
[2017-05-09 14:00] VITALS: BP 134/67
--- NOTE | 2017-05-09 20:36 | IPN ---
DATE: 05/08/2017 SUBJECTIVE: The patient was seen and examined at the bedside today morning. She is slightly confused and obtunded today. However, her sodium level is stable and her renal function continues to improve. The last 24 hour events were noted. The patient got a percutaneous endoscopic gastrostomy (PEG) tube placement yesterday. REVIEW OF SYSTEMS: The patient was unable to provide any reliable review of systems. She is slightly confused and obtunded and talking to herself. OBJECTIVE: VITAL SIGNS: Temperature 98.6 degrees Fahrenheit, blood pressure 134/65, pulse 101, respiratory rate 18, saturating 96% on nasal cannula at 2 liters. INTAKE AND OUTPUT: Urine output is not recorded. The patient has incontinent voids, about five voids yesterday. Bed scale weight is not available. PHYSICAL EXAMINATION: GENERAL: The patient is oriented times two, but talking to herself. HEAD AND NECK EXAM: Pupils equally round and reactive to light. Mucous membranes are moist. The patient is weak and cachectic. Neck is supple. There is slightly elevated jugular venous distention (JVD). CARDIOVASCULAR: S1, S2. Regular rate. No murmur, rub or gallop. RESPIRATORY: Chest is clear to auscultation bilaterally. Bilateral equal air entry. No rales or rhonchi. ABDOMEN: Soft. Mildly tender at the PEG tube insertion site. Patient has a PEG tube in the epigastric area. No ascites or organomegaly. MUSCULOSKELETAL: No clubbing or cyanosis. Pulses are 2+. No edema of the extremities. CENTRAL NERVOUS SYSTEM: The patient is oriented times two, slightly confused. SKIN: The patient has dressings on both gluteal regions, otherwise no rashes. LABORATORY REVIEW: CBC showed a WBC of 9.1, hemoglobin 10.4, platelets are 169. BMP showed sodium 142, potassium 3.8, chloride 110, bicarbonate 22, BUN 9, creatinine 0.27, calcium 8.2, magnesium 2.1, albumin 1.8. CURRENT INPATIENT MEDICATIONS: The patient's medications were all reviewed by me. I have stopped the patient's IV fluids at this time. She continues to be on IV Zosyn and fentanyl was stopped yesterday. No other change in the medications at this time. ASSESSMENT: 71-year-old female who is bedridden, nephrology service following patient for management of hypernatremia, urinary tract infection, and hypokalemia. PLAN: 1. Hypernatremia. Sodium has improved with IV fluid hydration. It was secondary to decreased oral intake. Sodium is 142 now. Patient got a percutaneous endoscopic gastrostomy (PEG) tube placed yesterday. Since the percutaneous endoscopic gastrostomy (PEG) tube will be used now, I have stopped the IV fluids. Continue the free water flushes 250 mL every 8 hours every day. 2. Acute kidney injury. Renal function has improved. Creatinine is down to 0.27. No need of further IV fluid hydration. 3. Escherichia (E) coli urinary tract infection (UTI). Patient is on IV Zosyn which covers the Escherichia (E) coli as well. 4. Protein calorie malnutrition. Patient has a percutaneous endoscopic gastrostomy (PEG) tube now. She can be started on percutaneous endoscopic gastrostomy (PEG) tube feeds. Patient's sodium level and renal function has improved back to baseline. Nephrology service will sign off at this moment. Please call nephrology for any need in the management of this patient during this hospitalization. Plan of care was discussed with the hospitalist, Dr. Ashlyn Bocanegra.
[2017-05-09 22:00] VITALS: BP 124/59
[2017-05-09] MEDS: DONEPEZIL 5 MG TAB PO SCH (23:20)
[2017-05-10 06:00] VITALS: BP 134/69
[2017-05-10 06:04] LABS: EOS # 0.1 K/mm3 (0.0-0.50); EOS % 0.9 % (0.0-3.0); LARGE UNSTAINED CELL # 0.1 K/mm3 (0.0-0.4); LARGE UNSTAINED CELL % 1.1 % (0.0-4.0); LYMPH # 0.6 K/mm3 (1.5-4.5); LYMPH % 7.3 % (24.0-44.0); MEAN CORPUSCULAR HEMOGLOBIN 30.5 pg (27.0-33.0); MEAN CORPUSCULAR HGB CONC 33.4 g/dl (32.0-36.5); MEAN CORPUSCULAR VOLUME 91.4 fl (80.0-96.0); MONO # 0.3 K/mm3 (0.0-0.8); MONO % 4.3 % (0.0-5.0); NEUTROPHILS # 6.2 K/mm3 (1.8-7.7); NEUTROPHILS % 86.2 % (36.0-66.0); PLATELET COUNT, AUTOMATED 249 k/mm3 (150-450); RED CELL DISTRIBUTION WIDTH 13.6 % (11.5-14.5); WHITE BLOOD COUNT 7.2 K/mm3 (4.0-10.0)
[2017-05-10 06:20] LABS: ALBUMIN 1.7 GM/DL (3.2-5.2); ALBUMIN/GLOBULIN RATIO 0.46 (1.00-1.93); ALKALINE PHOSPHATASE 150 U/L (45-117); ALT/SGPT 57 U/L (12-78); ANION GAP 9 MEQ/L (8-16); AST/SGOT 27 U/L (15-37); BILIRUBIN,TOTAL 0.3 MG/DL (0.2-1.0); BLOOD UREA NITROGEN 13 MG/DL (7-18); CALCIUM LEVEL 8.3 MG/DL (8.8-10.2); CARBON DIOXIDE LEVEL 26 MEQ/L (21-32); CHLORIDE LEVEL 110 MEQ/L (98-107); CREATININE FOR GFR 0.34 MG/DL (0.55-1.02); GLOMERULAR FILTRATION RATE > 60.0 (>39); GLUCOSE, FASTING 136 MG/DL (83-110); MAGNESIUM LEVEL 2.6 MG/DL (1.8-2.4); POTASSIUM SERUM 3.7 MEQ/L (3.5-5.1); SODIUM LEVEL 145 MEQ/L (136-145); TOTAL PROTEIN 5.4 GM/DL (6.4-8.2)
[2017-05-10] MEDS: HEPARIN SOD (PORCINE) 5000 UNITS/ML VIAL SC SCH ×3 (06:38→21:23)
[2017-05-10] MEDS: IPRATROPIUM 0.5MG/ALBUTEROL 2.5MG INH SOL UD 3ML (DUONEB)(J7620) NEB SCH ×4 (07:08→19:43)
[2017-05-10] MEDS: rOPINIRole 0.25 MG TAB(REQUIP) PO SCH ×3 (09:32→21:23)
[2017-05-10] MEDS: PANTOPRAZOLE 40MG INJ (PROTONIX) (C9113) IV SCH (09:32)
--- NOTE | 2017-05-10 12:55 | IPNPDOC ---
Text Note Date of Service The patient was seen on 05/10/17. NOTE Subjective: Patient is a 71 year old female with a PMHx of Dementia (history of waxing and waning) and Parkinson's disease who presented to the ER after she was found down in her kitchen after a possible drug overdose. She presented to the ER and was put on CPAP because of respiratory depression. Patient was seen and examined at the bedside. She was working with physical therapy today. Doesn't appear to be completely oriented still. No complaints of pain. Objective: Vitals (See below) General: Lying in bed, no acute distress, comfortable, oriented x1 HEENT: NC, AT CVS: RRR, +S1S2 Lungs: Diminished breath sounds bilaterally Abdomen: Soft, ND, NT, + PEG Extremities: - Edema, - Calf tenderness Assessment and plan: 1. Dysphagia - likely 2/2 progressive dementia, less likely 2/2 acute metabolic encephalopathy - On modified diet and tube feedings - s/p PEG tube placement (POD#3) - No evidence of PEG malfunction, site appears clean without any signs of infection - Has been tolerating tube feedings 2. Acute metabolic encephalopathy - possibly 2/2 progressive dementia; less likely 2/2 electrolyte abnormalities and aspiration pneumonia - Has waxing and waning symptoms throughout the last few PO days - Physical without any focal deficits - Na has normalized - s/p Aspiration pneumonia - c/w Donepezil and Ropinirole 3. s/p Aspiration pneumonia - Leukocytosis resolved; s/p fevers - CT chest 04/30: bilateral lower lobe tree in bud pattern compatible with LL pneumonitis; small R pleural effusions - c/w supplemental oxygen and titrate down as tolerated - s//p Zosyn (Completed 7 days of antibiotics; End 05/09/17) 4. s/p Hypernatremia - likely 2/2 poor oral intake - Na normalized - s/p D5W based fluids - Nephrology has signed off - appreciate their input 5. Tremor - Couldn't tolerate Sinemet at home - c/w Requip 6. Protein calorie malnutrition - 2/2 poor oral intake - See #1 7. s/p Thrombocytopenia - possibly 2/2 infection - no evidence of bleeding - will monitor for now 8. GI prophylaxis - c/w Protonix 9. DVT prophylaxis - c/w Heparin SQ Disposition: - Will c/w physical therapy - Plan for placement to longterm VS,Fishbone, I+O VS, Fishbone, I+O Laboratory Tests 05/10/17 05:34 Red Blood Count 3.30 L, Mean Corpuscular Volume 91.4, Mean Corpuscular Hemoglobin 30.5, Mean Corpuscular Hemoglobin Concent 33.4, Red Cell Distribution Width 13.6, Neutrophils (%) (Auto) 86.2 H, Lymphocytes (%) (Auto) 7.3 L, Monocytes (%) (Auto) 4.3, Eosinophils (%) (Auto) 0.9, Basophils (%) (Auto ) 0.0, Neutrophils # (Auto) 6.2, Lymphocytes # (Auto) 0.6 L, Monocytes # (Auto) 0.3, Eosinophils # (Auto) 0.1, Basophils # (Auto) 0.0, Calcium Level 8.3 L, Aspartate Amino Transf (AST/SGOT) 27, Alanine Aminotransferase (ALT/SGPT) 57, Alkaline Phosphatase 150 H, Total Bilirubin 0.3, Total Protein 5.4 L, Albumin 1.7 L Vital Signs Date Time Temp Pulse Resp B/P (MAP) Pulse Ox O2 Delivery O2 Flow Rate FiO2 05/10/17 06:00 98.0 94 19 134/69 (90) 96 Nasal Cannula 2.0 I&O- Last 24 Hours up to 6 AM 05/10/17 06:00 Intake Total 930 ml Output Total 0 ml Balance 930 ml DAISHA STEWART MD May 10, 2017 12:55
[2017-05-10] MEDS: DONEPEZIL 5 MG TAB PO SCH (21:23)
[2017-05-10 22:00] VITALS: BP 118/61
[2017-05-11] MEDS: HEPARIN SOD (PORCINE) 5000 UNITS/ML VIAL SC SCH ×3 (05:05→21:05)
[2017-05-11 06:00] VITALS: BP 127/59
[2017-05-11 06:34] LABS: BASO % 0.3 % (0.0-1.0); EOS # 0.1 K/mm3 (0.0-0.50); LARGE UNSTAINED CELL # 0.1 K/mm3 (0.0-0.4); LARGE UNSTAINED CELL % 1.7 % (0.0-4.0); LYMPH # 0.6 K/mm3 (1.5-4.5); LYMPH % 7.5 % (24.0-44.0); MEAN CORPUSCULAR HEMOGLOBIN 30.7 pg (27.0-33.0); MEAN CORPUSCULAR HGB CONC 33.7 g/dl (32.0-36.5); MONO # 0.3 K/mm3 (0.0-0.8); MONO % 3.9 % (0.0-5.0); NEUTROPHILS # 6.1 K/mm3 (1.8-7.7); NEUTROPHILS % 85.7 % (36.0-66.0); PLATELET COUNT, AUTOMATED 279 k/mm3 (150-450); RED CELL DISTRIBUTION WIDTH 13.4 % (11.5-14.5); WHITE BLOOD COUNT 7.1 K/mm3 (4.0-10.0)
[2017-05-11 06:53] LABS: ALBUMIN 1.7 GM/DL (3.2-5.2); ALBUMIN/GLOBULIN RATIO 0.43 (1.00-1.93); ALKALINE PHOSPHATASE 166 U/L (45-117); ALT/SGPT 61 U/L (12-78); ANION GAP 7 MEQ/L (8-16); AST/SGOT 22 U/L (15-37); BILIRUBIN,TOTAL 0.3 MG/DL (0.2-1.0); BLOOD UREA NITROGEN 14 MG/DL (7-18); CALCIUM LEVEL 8.4 MG/DL (8.8-10.2); CARBON DIOXIDE LEVEL 27 MEQ/L (21-32); CHLORIDE LEVEL 109 MEQ/L (98-107); CREATININE FOR GFR 0.31 MG/DL (0.55-1.02); GLOMERULAR FILTRATION RATE > 60.0 (>39); GLUCOSE, FASTING 124 MG/DL (83-110); MAGNESIUM LEVEL 2.4 MG/DL (1.8-2.4); POTASSIUM SERUM 3.6 MEQ/L (3.5-5.1); SODIUM LEVEL 143 MEQ/L (136-145); TOTAL PROTEIN 5.7 GM/DL (6.4-8.2)
[2017-05-11] MEDS: IPRATROPIUM 0.5MG/ALBUTEROL 2.5MG INH SOL UD 3ML (DUONEB)(J7620) NEB SCH ×4 (07:27→20:24)
[2017-05-11] MEDS: PANTOPRAZOLE 40MG INJ (PROTONIX) (C9113) IV SCH (08:53)
[2017-05-11] MEDS: rOPINIRole 0.25 MG TAB(REQUIP) PO SCH ×3 (08:53→21:05)
[2017-05-11] MEDS: NYSTATIN 100,000 UNITS/GM TOPICAL PWD 15 GM TOP SCH ×2 (12:12→21:05)
--- NOTE | 2017-05-11 13:07 | IPNPDOC ---
Text Note Date of Service The patient was seen on 05/11/17. NOTE Subjective: Patient is a 71 year old female with a PMHx of Dementia (history of waxing and waning) and Parkinson's disease who presented to the ER after she was found down in her kitchen after a possible drug overdose. She presented to the ER and was put on CPAP because of respiratory depression. Hospital stay significant for dysphagia s/p PEG tube placement, aspiration pneumonia s/p Zosyn. Patient is full code, HCP is her daughter. Patient seen and examined at bedside. No complaints of pain. Objective: Vitals (See below) General: Lying in bed, no acute distress, comfortable, oriented x1 HEENT: NC, AT CVS: RRR, +S1S2 Lungs: Diminished breath sounds bilaterally Abdomen: Soft, ND, NT, + PEG Extremities: - Edema, - Calf tenderness Assessment and plan: 1. Dysphagia - likely 2/2 progressive dementia - On modified diet and tube feedings - s/p PEG tube placement (POD#4) - No evidence of PEG malfunction, site appears clean without any signs of infection - Has been tolerating tube feedings 2. Acute metabolic encephalopathy - possibly 2/2 progressive dementia - Has waxing and waning symptoms - Physical without any focal deficits - Na has normalized - s/p Aspiration pneumonia - c/w Donepezil and Ropinirole 3. s/p Aspiration pneumonia - Leukocytosis resolved; s/p fevers - CT chest 04/30: bilateral lower lobe tree in bud pattern compatible with LL pneumonitis; small R pleural effusions - c/w supplemental oxygen and titrate down as tolerated - s/p Zosyn (Completed 7 days of antibiotics; End 05/09/17) 4. s/p Hypernatremia - likely 2/2 poor oral intake - Na normalized - s/p D5W based fluids - Nephrology has signed off - appreciate their input 5. Tremor - Couldn't tolerate Sinemet at home - c/w Requip - neurology consultation appreciated 6. Protein calorie malnutrition - 2/2 poor oral intake - See #1 7. s/p Thrombocytopenia - possibly 2/2 infection - no evidence of bleeding - resolved 8. GI prophylaxis - c/w Protonix 9. DVT prophylaxis - c/w Heparin SQ Disposition: - Will c/w physical therapy - Patient family wishing for patient to return home with services. - Dietary consultation - transition from continuous to bolus feeds VS,Fishbone, I+O VS, Fishbone, I+O Laboratory Tests 05/11/17 05:55 Red Blood Count 3.31 L, Mean Corpuscular Volume 91.0, Mean Corpuscular Hemoglobin 30.7, Mean Corpuscular Hemoglobin Concent 33.7, Red Cell Distribution Width 13.4, Neutrophils (%) (Auto) 85.7 H, Lymphocytes (%) (Auto) 7.5 L, Monocytes (%) (Auto) 3.9, Eosinophils (%) (Auto) 1.0, Basophils (%) (Auto ) 0.3, Neutrophils # (Auto) 6.1, Lymphocytes # (Auto) 0.6 L, Monocytes # (Auto) 0.3, Eosinophils # (Auto) 0.1, Basophils # (Auto) 0.0, Calcium Level 8.4 L, Aspartate Amino Transf (AST/SGOT) 22, Alanine Aminotransferase (ALT/SGPT) 61, Alkaline Phosphatase 166 H, Total Bilirubin 0.3, Total Protein 5.7 L, Albumin 1.7 L Vital Signs Date Time Temp Pulse Resp B/P (MAP) Pulse Ox O2 Delivery O2 Flow Rate FiO2 05/11/17 06:00 99.3 95 18 127/59 (81) 94 Room Air 05/10/17 09:30 2.0 I&O- Last 24 Hours up to 6 AM 05/11/17 06:00 Intake Total 1600 ml Output Total 0 ml Balance 1600 ml LAURA SLOAN MD May 11, 2017 13:07
[2017-05-11 14:00] VITALS: BP 134/80
[2017-05-11] MEDS: DONEPEZIL 5 MG TAB PO SCH (21:05)
[2017-05-11 22:00] VITALS: BP 131/60
[2017-05-12] MEDS: HEPARIN SOD (PORCINE) 5000 UNITS/ML VIAL SC SCH ×3 (05:43→21:23)
[2017-05-12 06:00] VITALS: BP 147/75
[2017-05-12 06:51] LABS: BASO % 0.3 % (0.0-1.0); EOS # 0.1 K/mm3 (0.0-0.50); EOS % 0.9 % (0.0-3.0); LARGE UNSTAINED CELL # 0.1 K/mm3 (0.0-0.4); LARGE UNSTAINED CELL % 1.4 % (0.0-4.0); LYMPH # 0.7 K/mm3 (1.5-4.5); LYMPH % 10.2 % (24.0-44.0); MEAN CORPUSCULAR HEMOGLOBIN 30.6 pg (27.0-33.0); MEAN CORPUSCULAR HGB CONC 33.3 g/dl (32.0-36.5); MEAN CORPUSCULAR VOLUME 91.8 fl (80.0-96.0); MONO # 0.2 K/mm3 (0.0-0.8); MONO % 3.6 % (0.0-5.0); NEUTROPHILS # 5.3 K/mm3 (1.8-7.7); NEUTROPHILS % 83.6 % (36.0-66.0); PLATELET COUNT, AUTOMATED 292 k/mm3 (150-450); RED CELL DISTRIBUTION WIDTH 13.6 % (11.5-14.5); WHITE BLOOD COUNT 6.3 K/mm3 (4.0-10.0)
[2017-05-12 07:05] LABS: ALBUMIN 1.7 GM/DL (3.2-5.2); ALBUMIN/GLOBULIN RATIO 0.43 (1.00-1.93); ALKALINE PHOSPHATASE 133 U/L (45-117); ALT/SGPT 56 U/L (12-78); ANION GAP 9 MEQ/L (8-16); AST/SGOT 24 U/L (15-37); BILIRUBIN,TOTAL 0.3 MG/DL (0.2-1.0); BLOOD UREA NITROGEN 16 MG/DL (7-18); CALCIUM LEVEL 8.4 MG/DL (8.8-10.2); CARBON DIOXIDE LEVEL 25 MEQ/L (21-32); CHLORIDE LEVEL 112 MEQ/L (98-107); CREATININE FOR GFR 0.29 MG/DL (0.55-1.02); GLOMERULAR FILTRATION RATE > 60.0 (>39); GLUCOSE, FASTING 121 MG/DL (83-110); MAGNESIUM LEVEL 2.6 MG/DL (1.8-2.4); POTASSIUM SERUM 3.8 MEQ/L (3.5-5.1); SODIUM LEVEL 146 MEQ/L (136-145); TOTAL PROTEIN 5.7 GM/DL (6.4-8.2)
[2017-05-12] MEDS: IPRATROPIUM 0.5MG/ALBUTEROL 2.5MG INH SOL UD 3ML (DUONEB)(J7620) NEB SCH ×4 (07:26→19:27)
[2017-05-12] MEDS: rOPINIRole 0.25 MG TAB(REQUIP) PO SCH ×3 (10:25→21:24)
[2017-05-12] MEDS: NYSTATIN 100,000 UNITS/GM TOPICAL PWD 15 GM TOP SCH ×2 (10:25→21:23)
[2017-05-12] MEDS: PANTOPRAZOLE 40MG INJ (PROTONIX) (C9113) IV SCH (10:25)
--- NOTE | 2017-05-12 11:39 | IPNPDOC ---
Text Note Date of Service The patient was seen on 05/12/17. NOTE Subjective: Patient is a 71 year old female with a PMHx of Dementia (history of waxing and waning) and Parkinson's disease who presented to the ER after she was found down in her kitchen after a possible drug overdose. She presented to the ER and was put on CPAP because of respiratory depression. Hospital stay significant for dysphagia s/p PEG tube placement, aspiration pneumonia s/p Zosyn. Patient is full code, HCP is her daughter. Patient seen and examined at bedside. No new medical complaints. Objective: Vitals (See below) General: Lying in bed, no acute distress, comfortable HEENT: NC, AT CVS: RRR, +S1S2 Lungs: Diminished breath sounds bilaterally Abdomen: Soft, ND, NT, + PEG Extremities: - Edema, - Calf tenderness Assessment and plan: 1. Dysphagia - likely 2/2 progressive dementia - On modified diet and tube feedings - s/p PEG tube placement - No evidence of PEG malfunction, site appears clean without any signs of infection - Has been tolerating tube feedings 2. Acute metabolic encephalopathy - possibly 2/2 progressive dementia - Has waxing and waning symptoms - Physical without any focal deficits - Na has normalized - s/p Aspiration pneumonia - c/w Donepezil and Ropinirole 3. s/p Aspiration pneumonia - Leukocytosis resolved; s/p fevers - CT chest 04/30: bilateral lower lobe tree in bud pattern compatible with LL pneumonitis; small R pleural effusions - c/w supplemental oxygen and titrate down as tolerated - s/p Zosyn (Completed 7 days of antibiotics; End 05/09/17) 4. s/p Hypernatremia - likely 2/2 poor oral intake - Na slightly elevated today - continue to follow - s/p D5W based fluids - Nephrology has signed off - appreciate their input 5. Tremor - Couldn't tolerate Sinemet at home - c/w Requip - neurology consultation appreciated 6. Protein calorie malnutrition - 2/2 poor oral intake - See #1 7. s/p Thrombocytopenia - possibly 2/2 infection - no evidence of bleeding - resolved 8. GI prophylaxis - c/w Protonix 9. DVT prophylaxis - c/w Heparin SQ Disposition: - Will c/w physical therapy - Patient family wishing for patient to return home with services. - Dietary consultation - anticipating transition from continuous to bolus feeds to facilitate discharge home VS,Rogers, I+O VS, Kevine, I+O Laboratory Tests 05/12/17 06:10 Red Blood Count 3.28 L, Mean Corpuscular Volume 91.8, Mean Corpuscular Hemoglobin 30.6, Mean Corpuscular Hemoglobin Concent 33.3, Red Cell Distribution Width 13.6, Neutrophils (%) (Auto) 83.6 H, Lymphocytes (%) (Auto) 10.2 L, Monocytes (%) (Auto) 3.6, Eosinophils (%) (Auto) 0.9, Basophils (%) ( Auto) 0.3, Neutrophils # (Auto) 5.3, Lymphocytes # (Auto) 0.7 L, Monocytes # ( Auto) 0.2, Eosinophils # (Auto) 0.1, Basophils # (Auto) 0.0, Calcium Level 8.4 L , Aspartate Amino Transf (AST/SGOT) 24, Alanine Aminotransferase (ALT/SGPT) 56, Alkaline Phosphatase 133 H, Total Bilirubin 0.3, Total Protein 5.7 L, Albumin 1.7 L Vital Signs Date Time Temp Pulse Resp B/P (MAP) Pulse Ox O2 Delivery O2 Flow Rate FiO2 05/12/17 06:00 99.2 91 18 147/75 (99) 94 Room Air 05/11/17 08:32 2.0 I&O- Last 24 Hours up to 6 AM 05/12/17 06:00 Intake Total 640 ml Output Total 0 ml Balance 640 ml LAURA SLOAN MD May 12, 2017 11:39
[2017-05-12 14:00] VITALS: BP 123/59
[2017-05-12] MEDS: DONEPEZIL 5 MG TAB PO SCH (21:24)
[2017-05-12 22:00] VITALS: BP 134/62
[2017-05-12] MEDS: ACETAMINOPHEN 650 MG SUPP PR PRN (22:05)
[2017-05-13] MEDS: HEPARIN SOD (PORCINE) 5000 UNITS/ML VIAL SC SCH ×3 (05:16→21:28)
[2017-05-13 06:00] VITALS: BP 139/67
[2017-05-13 08:40] LABS: ANION GAP 8 MEQ/L (8-16); BLOOD UREA NITROGEN 20 MG/DL (7-18); CALCIUM LEVEL 8.2 MG/DL (8.8-10.2); CARBON DIOXIDE LEVEL 25 MEQ/L (21-32); CHLORIDE LEVEL 113 MEQ/L (98-107); CREATININE FOR GFR 0.36 MG/DL (0.55-1.02); GLOMERULAR FILTRATION RATE > 60.0 (>39); GLUCOSE, FASTING 135 MG/DL (83-110); POTASSIUM SERUM 4.1 MEQ/L (3.5-5.1); SODIUM LEVEL 146 MEQ/L (136-145)
[2017-05-13] MEDS: IPRATROPIUM 0.5MG/ALBUTEROL 2.5MG INH SOL UD 3ML (DUONEB)(J7620) NEB SCH ×4 (08:56→20:59)
[2017-05-13] MEDS: rOPINIRole 0.25 MG TAB(REQUIP) PO SCH ×4 (09:00→21:29)
--- NOTE | 2017-05-13 10:31 | IPNPDOC ---
Text Note Date of Service The patient was seen on 05/13/17. NOTE Subjective: Patient is a 71 year old female with a PMHx of Dementia (history of waxing and waning) and Parkinson's disease who presented to the ER after she was found down in her kitchen after a possible drug overdose. She presented to the ER and was put on CPAP because of respiratory depression. Hospital stay significant for dysphagia s/p PEG tube placement, aspiration pneumonia s/p Zosyn. Patient is full code, HCP is her daughter. Patient seen and examined at bedside. No new medical complaints. Objective: Vitals (See below) General: Lying in bed, no acute distress, comfortable HEENT: NC, AT CVS: RRR, +S1S2 Lungs: Diminished breath sounds bilaterally Abdomen: Soft, ND, NT, + PEG Extremities: - Edema, - Calf tenderness Assessment and plan: 1. Dysphagia - likely 2/2 progressive dementia - On modified diet and tube feedings - s/p PEG tube placement - No evidence of PEG malfunction, site appears clean without any signs of infection - Has been tolerating tube feedings 2. Acute metabolic encephalopathy - possibly 2/2 progressive dementia - Has waxing and waning symptoms - Physical without any focal deficits - s/p Aspiration pneumonia - c/w Donepezil and Ropinirole 3. s/p Aspiration pneumonia - Leukocytosis resolved; s/p fevers - CT chest 04/30: bilateral lower lobe tree in bud pattern compatible with LL pneumonitis; small R pleural effusions - c/w supplemental oxygen and titrate down as tolerated - s/p Zosyn (Completed 7 days of antibiotics; End 05/09/17) 4. s/p Hypernatremia - likely 2/2 poor oral intake - Na still slightly elevated today - continue to follow - s/p D5W based fluids - Nephrology has signed off - appreciate their input - if worsens will increase free water through PEG tube 5. Tremor - Couldn't tolerate Sinemet at home - c/w Requip - neurology consultation appreciated 6. Protein calorie malnutrition - 2/2 poor oral intake - See #1 7. s/p Thrombocytopenia - possibly 2/2 infection - no evidence of bleeding - resolved 8. GI prophylaxis - c/w Protonix 9. DVT prophylaxis - c/w Heparin SQ Disposition: - Will c/w physical therapy - Patient family wishing for patient to return home with services. - Dietary consultation - anticipating transition from continuous to bolus feeds to facilitate discharge home Rogers PRIETO, I+O Rogers PRIETO I+O Laboratory Tests 05/13/17 07:24 Calcium Level 8.2 L Vital Signs Date Time Temp Pulse Resp B/P (MAP) Pulse Ox O2 Delivery O2 Flow Rate FiO2 05/13/17 06:00 98.0 90 20 139/67 (91) 95 Room Air 05/11/17 08:32 2.0 I&O- Last 24 Hours up to 6 AM 05/13/17 06:00 Intake Total 740 ml Output Total 0 ml Balance 740 ml LAURA SLOAN MD May 13, 2017 10:31
[2017-05-13] MEDS: PANTOPRAZOLE 40MG INJ (PROTONIX) (C9113) IV SCH (10:36)
[2017-05-13] MEDS: NYSTATIN 100,000 UNITS/GM TOPICAL PWD 15 GM TOP SCH ×2 (10:37→21:29)
[2017-05-13 14:00] VITALS: BP 128/72
[2017-05-13] MEDS: DONEPEZIL 5 MG TAB PO SCH (21:29)
[2017-05-13 22:00] VITALS: BP 127/67
[2017-05-14] MEDS: HEPARIN SOD (PORCINE) 5000 UNITS/ML VIAL SC SCH ×3 (05:13→21:34)
[2017-05-14 06:00] VITALS: BP 135/72
[2017-05-14 06:10] LABS: MEAN CORPUSCULAR HEMOGLOBIN 30.2 pg (27.0-33.0); MEAN CORPUSCULAR HGB CONC 32.5 g/dl (32.0-36.5); RED CELL DISTRIBUTION WIDTH 13.7 % (11.5-14.5); WHITE BLOOD COUNT 6.6 K/mm3 (4.0-10.0)
[2017-05-14 06:28] LABS: ANION GAP 9 MEQ/L (8-16); BLOOD UREA NITROGEN 23 MG/DL (7-18); CALCIUM LEVEL 8.7 MG/DL (8.8-10.2); CARBON DIOXIDE LEVEL 26 MEQ/L (21-32); CHLORIDE LEVEL 114 MEQ/L (98-107); CREATININE FOR GFR 0.41 MG/DL (0.55-1.02); GLOMERULAR FILTRATION RATE > 60.0 (>39); GLUCOSE, FASTING 125 MG/DL (83-110); POTASSIUM SERUM 4.1 MEQ/L (3.5-5.1); SODIUM LEVEL 149 MEQ/L (136-145)
[2017-05-14] MEDS: IPRATROPIUM 0.5MG/ALBUTEROL 2.5MG INH SOL UD 3ML (DUONEB)(J7620) NEB SCH ×2 (07:20→11:17)
[2017-05-14] MEDS: PANTOPRAZOLE 40MG INJ (PROTONIX) (C9113) IV SCH (08:50)
[2017-05-14] MEDS: NYSTATIN 100,000 UNITS/GM TOPICAL PWD 15 GM TOP SCH ×2 (08:51→21:34)
[2017-05-14] MEDS: rOPINIRole 0.25 MG TAB(REQUIP) PO SCH ×3 (08:52→21:34)
--- NOTE | 2017-05-14 10:09 | IPNPDOC ---
Text Note Date of Service The patient was seen on 05/14/17. NOTE Subjective: Patient is a 71 year old female with a PMHx of Dementia (history of waxing and waning) and Parkinson's disease who presented to the ER after she was found down in her kitchen after a possible drug overdose. She presented to the ER and was put on CPAP because of respiratory depression. Hospital stay significant for dysphagia s/p PEG tube placement, aspiration pneumonia s/p Zosyn. Patient is full code, HCP is her daughter. Patient seen and examined at bedside. No new medical complaints. Objective: Vitals (See below) General: Lying in bed, no acute distress, comfortable HEENT: NC, AT CVS: RRR, +S1S2 Lungs: Diminished breath sounds bilaterally Abdomen: Soft, ND, NT, + PEG Extremities: - Edema, - Calf tenderness Assessment and plan: 1. Dysphagia - likely 2/2 progressive dementia - On modified diet and tube feedings - s/p PEG tube placement - No evidence of PEG malfunction, site appears clean without any signs of infection - Has been tolerating tube feedings 2. Acute metabolic encephalopathy - possibly 2/2 progressive dementia - Has waxing and waning symptoms - Physical without any focal deficits - s/p Aspiration pneumonia - c/w Donepezil and Ropinirole 3. s/p Aspiration pneumonia - Leukocytosis resolved; s/p fevers - CT chest 04/30: bilateral lower lobe tree in bud pattern compatible with LL pneumonitis; small R pleural effusions - c/w supplemental oxygen and titrate down as tolerated - s/p Zosyn (Completed 7 days of antibiotics; End 05/09/17) 4. Hypernatremia - likely 2/2 poor oral intake - Na still slightly elevated today - increase free water feeds - s/p D5W based fluids - Nephrology has signed off - appreciate their input 5. Tremor - Couldn't tolerate Sinemet at home - c/w Requip - neurology consultation appreciated 6. Protein calorie malnutrition - 2/2 poor oral intake - See #1 7. s/p Thrombocytopenia - possibly 2/2 infection - no evidence of bleeding - resolved 8. GI prophylaxis - c/w Protonix 9. DVT prophylaxis - c/w Heparin SQ Disposition: - Will c/w physical therapy - Patient family wishing for patient to return home with services. - patient has been very lethargic last two days, seems unlikely will be able to return home VS,Rogers, I+O VS, Rogers, I+O Laboratory Tests 05/14/17 05:42 Red Blood Count 3.46 L, Mean Corpuscular Volume 93.0, Mean Corpuscular Hemoglobin 30.2, Mean Corpuscular Hemoglobin Concent 32.5, Red Cell Distribution Width 13.7, Calcium Level 8.7 L Vital Signs Date Time Temp Pulse Resp B/P (MAP) Pulse Ox O2 Delivery O2 Flow Rate FiO2 05/14/17 06:00 99.0 100 18 135/72 (93) 95 Room Air 05/11/17 08:32 2.0 I&O- Last 24 Hours up to 6 AM 05/14/17 06:00 Intake Total 740 ml Balance 740 ml LAURA SLOAN MD May 14, 2017 10:09
[2017-05-14 14:00] VITALS: BP 129/71
[2017-05-14] MEDS: ACETAMINOPHEN 650 MG SUPP PR PRN ×2 (16:01→22:18)
[2017-05-14] MEDS: DONEPEZIL 5 MG TAB PO SCH (21:35)
[2017-05-14 22:00] VITALS: BP 136/75
[2017-05-15] MEDS: HEPARIN SOD (PORCINE) 5000 UNITS/ML VIAL SC SCH ×3 (05:36→21:11)
[2017-05-15 05:54] LABS: MEAN CORPUSCULAR HEMOGLOBIN 30.2 pg (27.0-33.0); MEAN CORPUSCULAR HGB CONC 32.2 g/dl (32.0-36.5); MEAN CORPUSCULAR VOLUME 93.7 fl (80.0-96.0); RED CELL DISTRIBUTION WIDTH 13.7 % (11.5-14.5); WHITE BLOOD COUNT 6.6 K/mm3 (4.0-10.0)
[2017-05-15 06:00] VITALS: BP 137/79
[2017-05-15 06:08] LABS: ANION GAP 8 MEQ/L (8-16); BLOOD UREA NITROGEN 27 MG/DL (7-18); CALCIUM LEVEL 9.1 MG/DL (8.8-10.2); CARBON DIOXIDE LEVEL 26 MEQ/L (21-32); CHLORIDE LEVEL 113 MEQ/L (98-107); CREATININE FOR GFR 0.41 MG/DL (0.55-1.02); GLOMERULAR FILTRATION RATE > 60.0 (>39); GLUCOSE, FASTING 140 MG/DL (83-110); POTASSIUM SERUM 4.2 MEQ/L (3.5-5.1); SODIUM LEVEL 147 MEQ/L (136-145)
[2017-05-15] MEDS: PANTOPRAZOLE 40MG INJ (PROTONIX) (C9113) IV SCH (09:15)
[2017-05-15] MEDS: NYSTATIN 100,000 UNITS/GM TOPICAL PWD 15 GM TOP SCH ×2 (09:16→21:11)
--- NOTE | 2017-05-15 09:35 | IPNPDOC ---
Text Note Date of Service The patient was seen on 05/15/17. NOTE Subjective: Patient is a 71 year old female with a PMHx of Dementia (history of waxing and waning) and Parkinson's disease who presented to the ER after she was found down in her kitchen after a possible drug overdose. She presented to the ER and was put on CPAP because of respiratory depression. Hospital stay significant for dysphagia s/p PEG tube placement, aspiration pneumonia s/p Zosyn. Patient is full code, HCP is her daughter. Patient seen and examined at bedside. No new medical complaints. Lethargic. Objective: Vitals (See below) General: Lying in bed, no acute distress, comfortable, only response is occasional 'yes' to questions HEENT: NC, AT, bitemporal wasting CVS: RRR, +S1S2 Lungs: Diminished breath sounds bilaterally Abdomen: Soft, ND, NT, + PEG, area is C/D/I Extremities: - Edema, - Calf tenderness Assessment and plan: 1. Dysphagia - likely 2/2 progressive dementia - On modified diet and tube feedings - s/p PEG tube placement - No evidence of PEG malfunction, site appears clean without any signs of infection - Has been tolerating tube feedings 2. Acute metabolic encephalopathy - possibly 2/2 progressive dementia - Has waxing and waning symptoms - Physical without any focal deficits - s/p Aspiration pneumonia - c/w Donepezil and Ropinirole 3. s/p Aspiration pneumonia - Leukocytosis resolved; s/p fevers - CT chest 04/30: bilateral lower lobe tree in bud pattern compatible with LL pneumonitis; small R pleural effusions - c/w supplemental oxygen and titrate down as tolerated - s/p Zosyn (Completed 7 days of antibiotics; End 05/09/17) 4. Hypernatremia - likely 2/2 poor oral intake - Na still slightly improved today - continue with increased free water feeds - s/p D5W based fluids - Nephrology has signed off - appreciate their input 5. Tremor - Couldn't tolerate Sinemet at home - c/w Requip - neurology consultation appreciated 6. Protein calorie malnutrition - 2/2 poor oral intake - See #1 7. s/p Thrombocytopenia - possibly 2/2 infection - no evidence of bleeding - resolved 8. GI prophylaxis - c/w Protonix 9. DVT prophylaxis - c/w Heparin SQ Disposition: Discussed at length today with daughter Sandra Palencia [phone]. Still wishes to continue with current treatment plan including PEG tube feeds and maintain full code status including intubation and CPR if needed. VS,Fishbone, I+O VS, Fishbone, I+O Laboratory Tests 05/15/17 05:39 Red Blood Count 3.59 L, Mean Corpuscular Volume 93.7, Mean Corpuscular Hemoglobin 30.2, Mean Corpuscular Hemoglobin Concent 32.2, Red Cell Distribution Width 13.7, Calcium Level 9.1 Vital Signs Date Time Temp Pulse Resp B/P (MAP) Pulse Ox O2 Delivery O2 Flow Rate FiO2 05/15/17 06:00 99.0 96 18 137/79 (98) 92 Room Air 05/11/17 08:32 2.0 I&O- Last 24 Hours up to 6 AM 05/15/17 06:00 Intake Total 740 ml Output Total 0 ml Balance 740 ml LAURA SLOAN MD May 15, 2017 09:35
[2017-05-15 14:00] VITALS: BP 128/70
[2017-05-15] MEDS: DONEPEZIL 5 MG TAB PEG SCH (21:12)
[2017-05-15 22:00] VITALS: BP 129/73
[2017-05-16] MEDS: HEPARIN SOD (PORCINE) 5000 UNITS/ML VIAL SC SCH ×3 (05:24→22:13)
[2017-05-16 05:58] LABS: MEAN CORPUSCULAR HEMOGLOBIN 29.6 pg (27.0-33.0); MEAN CORPUSCULAR HGB CONC 32.1 g/dl (32.0-36.5); MEAN CORPUSCULAR VOLUME 92.3 fl (80.0-96.0); RED CELL DISTRIBUTION WIDTH 13.2 % (11.5-14.5); WHITE BLOOD COUNT 6.3 K/mm3 (4.0-10.0)
[2017-05-16 06:00] VITALS: BP 139/77
[2017-05-16 06:08] LABS: ANION GAP 9 MEQ/L (8-16); BLOOD UREA NITROGEN 29 MG/DL (7-18); CALCIUM LEVEL 9.1 MG/DL (8.8-10.2); CARBON DIOXIDE LEVEL 26 MEQ/L (21-32); CHLORIDE LEVEL 115 MEQ/L (98-107); CREATININE FOR GFR 0.35 MG/DL (0.55-1.02); GLOMERULAR FILTRATION RATE > 60.0 (>39); GLUCOSE, FASTING 128 MG/DL (83-110); POTASSIUM SERUM 3.9 MEQ/L (3.5-5.1); SODIUM LEVEL 150 MEQ/L (136-145)
[2017-05-16] MEDS: D5W 1,000 ML IV SCH (06:45)
--- NOTE | 2017-05-16 08:29 | IPNPDOC ---
Text Note Date of Service The patient was seen on 05/16/17. NOTE Subjective: Patient is a 71 year old female with a PMHx of Dementia (history of waxing and waning) and Parkinson's disease who presented to the ER after she was found down in her kitchen after a possible drug overdose. She presented to the ER and was put on CPAP because of respiratory depression. Hospital stay significant for dysphagia s/p PEG tube placement, aspiration pneumonia s/p Zosyn. Patient is full code, HCP is her daughter. Patient seen and examined at bedside. Notified by nursing regarding very thick secretions Objective: Vitals (See below) General: Lying in bed, no acute distress, comfortable, does not answer questions HEENT: NC, AT, bitemporal wasting CVS: RRR, +S1S2 Lungs: Diminished breath sounds bilaterally Abdomen: Soft, ND, NT, + PEG, area is C/D/I, +BS Extremities: - Edema, - Calf tenderness Assessment and plan: 1. Dysphagia - likely 2/2 progressive dementia - On modified diet and tube feedings - s/p PEG tube placement - No evidence of PEG malfunction, site appears clean without any signs of infection - Has been tolerating tube feedings 2. Acute metabolic encephalopathy - possibly 2/2 progressive dementia - s/p Aspiration pneumonia - c/w Donepezil and Ropinirole - lethargic, responding only to physical stimuli with occasional one word answers to questions 3. s/p Aspiration pneumonia - Leukocytosis resolved; s/p fevers - CT chest 04/30: bilateral lower lobe tree in bud pattern compatible with LL pneumonitis; small R pleural effusions - c/w supplemental oxygen and titrate down as tolerated - s/p Zosyn (Completed 7 days of antibiotics; End 05/09/17) 4. Hypernatremia - likely 2/2 poor oral intake - Na increased again - have increased free water via PEG tube with minimal response - started D5W at 50cc today - Nephrology has signed off - appreciate their input 5. Tremor - Couldn't tolerate Sinemet at home - c/w Requip - not tolerating PO - neurology consultation appreciated 6. Protein calorie malnutrition - 2/2 poor oral intake - See #1 7. s/p Thrombocytopenia - possibly 2/2 infection - no evidence of bleeding - resolved 8. GI prophylaxis - c/w Protonix 9. DVT prophylaxis - c/w Heparin SQ Disposition: Discussed at length with daughter 05/15/17 - Sandra Palencia [phone]. Still wishes to continue with current treatment plan including PEG tube feeds and maintain full code status including intubation and CPR if needed. Discussed expectations - she feels continuing with feeds and providing nutrition /calories will improve her condition. VS,Fishbone, I+O VS, Fishbone, I+O Laboratory Tests 05/16/17 05:21 Red Blood Count 3.60 L, Mean Corpuscular Volume 92.3, Mean Corpuscular Hemoglobin 29.6, Mean Corpuscular Hemoglobin Concent 32.1, Red Cell Distribution Width 13.2, Calcium Level 9.1 Vital Signs Date Time Temp Pulse Resp B/P (MAP) Pulse Ox O2 Delivery O2 Flow Rate FiO2 05/16/17 06:00 99.1 88 18 139/77 (97) 92 Room Air 05/11/17 08:32 2.0 I&O- Last 24 Hours up to 6 AM 05/16/17 06:00 Intake Total 1600 ml Output Total 0 ml Balance 1600 ml LAURA SLOAN MD May 16, 2017 08:29
[2017-05-16] MEDS: NYSTATIN 100,000 UNITS/GM TOPICAL PWD 15 GM TOP SCH ×2 (09:02→22:14)
[2017-05-16] MEDS: rOPINIRole 0.25 MG TAB(REQUIP) PO SCH (09:02)
[2017-05-16] MEDS: PANTOPRAZOLE 40MG INJ (PROTONIX) (C9113) IV SCH (09:02)
[2017-05-16 14:00] VITALS: BP 140/67
[2017-05-16] MEDS: rOPINIRole 0.25 MG TAB(REQUIP) PEG SCH ×2 (15:00→22:13)
[2017-05-16 22:00] VITALS: BP 126/71
[2017-05-16] MEDS: DONEPEZIL 5 MG TAB PEG SCH (22:13)
[2017-05-17] MEDS: D5W 1,000 ML IV SCH (03:39)
[2017-05-17] MEDS: HEPARIN SOD (PORCINE) 5000 UNITS/ML VIAL SC SCH ×3 (05:22→22:17)
[2017-05-17 06:00] VITALS: BP 136/97
[2017-05-17 06:06] LABS: MEAN CORPUSCULAR HEMOGLOBIN 29.7 pg (27.0-33.0); MEAN CORPUSCULAR HGB CONC 32.4 g/dl (32.0-36.5); MEAN CORPUSCULAR VOLUME 91.9 fl (80.0-96.0); RED CELL DISTRIBUTION WIDTH 13.2 % (11.5-14.5); WHITE BLOOD COUNT 7.8 K/mm3 (4.0-10.0)
[2017-05-17 06:20] LABS: ANION GAP 10 MEQ/L (8-16); BLOOD UREA NITROGEN 22 MG/DL (7-18); CALCIUM LEVEL 8.5 MG/DL (8.8-10.2); CARBON DIOXIDE LEVEL 25 MEQ/L (21-32); CHLORIDE LEVEL 108 MEQ/L (98-107); CREATININE FOR GFR 0.39 MG/DL (0.55-1.02); GLOMERULAR FILTRATION RATE > 60.0 (>39); GLUCOSE, FASTING 141 MG/DL (83-110); POTASSIUM SERUM 4.2 MEQ/L (3.5-5.1); SODIUM LEVEL 143 MEQ/L (136-145)
[2017-05-17] MEDS: PANTOPRAZOLE 40MG INJ (PROTONIX) (C9113) IV SCH (09:48)
[2017-05-17] MEDS: NYSTATIN 100,000 UNITS/GM TOPICAL PWD 15 GM TOP SCH ×2 (09:49→22:17)
[2017-05-17] MEDS: rOPINIRole 0.25 MG TAB(REQUIP) PEG SCH ×3 (09:49→22:16)
--- NOTE | 2017-05-17 10:25 | IPNPDOC ---
Text Note Date of Service The patient was seen on 05/17/17. NOTE Subjective: Patient is a 71 year old female with a PMHx of Dementia (history of waxing and waning) and Parkinson's disease who presented to the ER after she was found down in her kitchen after a possible drug overdose. She presented to the ER and was put on CPAP because of respiratory depression. Hospital stay significant for dysphagia s/p PEG tube placement, aspiration pneumonia s/p Zosyn. Patient is full code, HCP is her daughter. Patient seen and examined at bedside. Continues with very thick secretions. Lethargic, minimal one-word answers to questions - mostly 'yes'. Objective: Vitals (See below) General: Lying in bed, no acute distress, comfortable, does not answer questions HEENT: NC, AT, bitemporal wasting CVS: RRR, +S1S2 Lungs: Diminished breath sounds bilaterally Abdomen: Soft, ND, NT, + PEG, area is C/D/I, +BS Extremities: - Edema, - Calf tenderness Assessment and plan: 1. Dysphagia - likely 2/2 progressive dementia - On modified diet and tube feedings - s/p PEG tube placement - No evidence of PEG malfunction, site appears clean without any signs of infection - Has been tolerating tube feedings 2. Acute metabolic encephalopathy - possibly 2/2 progressive dementia - s/p Aspiration pneumonia - c/w Donepezil and Ropinirole - lethargic, responding only to physical stimuli with occasional one word answers to questions 3. s/p Aspiration pneumonia - Leukocytosis resolved; s/p fevers - CT chest 04/30: bilateral lower lobe tree in bud pattern compatible with LL pneumonitis; small R pleural effusions - c/w supplemental oxygen and titrate down as tolerated - s/p Zosyn (Completed 7 days of antibiotics; End 05/09/17) 4. Hypernatremia - likely 2/2 poor oral intake - resolved - IVF discontinued - have increased free water via PEG tube with minimal response - Nephrology has signed off - appreciate their input 5. Tremor - Couldn't tolerate Sinemet at home - c/w Requip - not tolerating PO - neurology consultation appreciated 6. Protein calorie malnutrition - 2/2 poor oral intake - See #1 7. s/p Thrombocytopenia - possibly 2/2 infection - no evidence of bleeding - resolved 8. GI prophylaxis - c/w Protonix 9. DVT prophylaxis - c/w Heparin SQ Disposition: Discussed at length with daughter 05/15/17 - Sandra Palencia [phone]. Still wishes to continue with current treatment plan including PEG tube feeds and maintain full code status including intubation and CPR if needed. Discussed expectations - she feels continuing with feeds and providing nutrition /calories will improve her condition. VS,Fishbone, I+O VS, Fishbone, I+O Laboratory Tests 05/17/17 05:47 Red Blood Count 3.57 L, Mean Corpuscular Volume 91.9, Mean Corpuscular Hemoglobin 29.7, Mean Corpuscular Hemoglobin Concent 32.4, Red Cell Distribution Width 13.2, Calcium Level 8.5 L Vital Signs Date Time Temp Pulse Resp B/P (MAP) Pulse Ox O2 Delivery O2 Flow Rate FiO2 05/17/17 06:00 98.5 83 18 136/97 (110) 92 Room Air 05/11/17 08:32 2.0 I&O- Last 24 Hours up to 6 AM 05/17/17 06:00 Intake Total 2675 ml Output Total 0 ml Balance 2675 ml LAURA SLOAN MD May 17, 2017 10:25
[2017-05-17 14:00] VITALS: BP 130/70
[2017-05-17 22:00] VITALS: BP 140/72
[2017-05-17] MEDS: DONEPEZIL 5 MG TAB PEG SCH (22:17)
[2017-05-18 04:59] VITALS: BP 125/59
[2017-05-18] MEDS: HEPARIN SOD (PORCINE) 5000 UNITS/ML VIAL SC SCH ×3 (05:02→21:58)
[2017-05-18 06:00] VITALS: BP 111/58
[2017-05-18 06:38] LABS: MEAN CORPUSCULAR HEMOGLOBIN 30.1 pg (27.0-33.0); MEAN CORPUSCULAR HGB CONC 32.4 g/dl (32.0-36.5); MEAN CORPUSCULAR VOLUME 92.9 fl (80.0-96.0); RED CELL DISTRIBUTION WIDTH 13.8 % (11.5-14.5); WHITE BLOOD COUNT 8.8 K/mm3 (4.0-10.0)
[2017-05-18 07:00] LABS: ANION GAP 9 MEQ/L (8-16); BLOOD UREA NITROGEN 21 MG/DL (7-18); CALCIUM LEVEL 8.3 MG/DL (8.8-10.2); CARBON DIOXIDE LEVEL 25 MEQ/L (21-32); CHLORIDE LEVEL 107 MEQ/L (98-107); CREATININE FOR GFR 0.31 MG/DL (0.55-1.02); GLOMERULAR FILTRATION RATE > 60.0 (>39); GLUCOSE, FASTING 106 MG/DL (83-110); POTASSIUM SERUM 4.3 MEQ/L (3.5-5.1); SODIUM LEVEL 141 MEQ/L (136-145)
[2017-05-18] MEDS: rOPINIRole 0.25 MG TAB(REQUIP) PEG SCH ×3 (10:21→21:58)
[2017-05-18] MEDS: PANTOPRAZOLE 40MG INJ (PROTONIX) (C9113) IV SCH (10:21)
[2017-05-18] MEDS: NYSTATIN 100,000 UNITS/GM TOPICAL PWD 15 GM TOP SCH ×2 (10:22→21:58)
--- NOTE | 2017-05-18 13:00 | IPNPDOC ---
Text Note Date of Service The patient was seen on 05/18/17. NOTE Subjective: Patient is a 71 year old female with a PMHx of Dementia (history of waxing and waning) and Parkinson's disease who presented to the ER after she was found down in her kitchen after a possible drug overdose. She presented to the ER and was put on CPAP because of respiratory depression. Hospital stay significant for dysphagia s/p PEG tube placement, aspiration pneumonia s/p Zosyn. Patient is full code, HCP is her daughter. Patient seen and examined at bedside. She is able to listen to questions but does not respond appropriately. Objective: Vitals (See below) General: Lying in bed, no acute distress, comfortable, awake + alert HEENT: NC, AT, bitemporal wasting CVS: RRR, +S1S2 Lungs: Diminished breath sounds bilaterally Abdomen: Soft, ND, NT, + PEG, +BS Extremities: - Edema, - Calf tenderness Assessment and plan: 1. Dysphagia - likely 2/2 progressive dementia - s/p PEG tube placement - No evidence of PEG malfunction, no evidence of infection - Has been tolerating tube feedings - Has been changed to strict NPO given increased secretions 2. Acute metabolic encephalopathy - likely 2/2 progressive dementia, less likely 2/2 medications - s/p Aspiration pneumonia - c/w Donepezil and Ropinirole - Responds to verbal stimuli 3. s/p Aspiration pneumonia - Leukocytosis resolved; s/p fevers - CT chest 04/30: bilateral lower lobe tree in bud pattern compatible with LL pneumonitis; small R pleural effusions - c/w supplemental oxygen and titrate down as tolerated - s/p Zosyn (Completed 7 days of antibiotics; End 05/09/17) 4. s/p Hypernatremia - likely 2/2 poor oral intake - resolved - IVF discontinued - have increased free water via PEG tube with minimal response - Nephrology has signed off - appreciate their input 5. Tremor - Couldn't tolerate Sinemet at home - c/w Requip - not tolerating PO - neurology consultation appreciated 6. Protein calorie malnutrition - 2/2 poor oral intake - See #1 7. s/p Thrombocytopenia - possibly 2/2 infection - no evidence of bleeding 8. GI prophylaxis - c/w Protonix 9. DVT prophylaxis - c/w Heparin SQ Disposition: - Daughter Lucero Palencia [phone]) has expressed she believes patient will improve with Nutrition - However at this time; this seems unlikely - Will discuss with daughter goal of care when she comes in - Will look into placement options if unable to improve here VS,Fishbone, I+O VS, Fishbone, I+O Laboratory Tests 05/18/17 06:04 Red Blood Count 3.65 L, Mean Corpuscular Volume 92.9, Mean Corpuscular Hemoglobin 30.1, Mean Corpuscular Hemoglobin Concent 32.4, Red Cell Distribution Width 13.8, Calcium Level 8.3 L Vital Signs Date Time Temp Pulse Resp B/P (MAP) Pulse Ox O2 Delivery O2 Flow Rate FiO2 05/18/17 06:00 98.7 82 17 111/58 (75) 92 Room Air I&O- Last 24 Hours up to 6 AM 05/18/17 06:00 Intake Total 1850 ml Output Total 0 ml Balance 1850 ml DAISHA STEWART MD May 18, 2017 13:00
[2017-05-18 14:00] VITALS: BP 144/67
[2017-05-18 21:40] VITALS: BP 155/70
[2017-05-18] MEDS: DONEPEZIL 5 MG TAB PEG SCH (21:58)
[2017-05-19] MEDS: HEPARIN SOD (PORCINE) 5000 UNITS/ML VIAL SC SCH ×3 (05:33→21:38)
[2017-05-19 06:00] VITALS: BP 116/67
[2017-05-19 06:21] LABS: MEAN CORPUSCULAR HEMOGLOBIN 30.1 pg (27.0-33.0); RED CELL DISTRIBUTION WIDTH 13.8 % (11.5-14.5); WHITE BLOOD COUNT 7.6 K/mm3 (4.0-10.0)
[2017-05-19 06:41] LABS: ANION GAP 9 MEQ/L (8-16); BLOOD UREA NITROGEN 22 MG/DL (7-18); CALCIUM LEVEL 8.7 MG/DL (8.8-10.2); CARBON DIOXIDE LEVEL 25 MEQ/L (21-32); CHLORIDE LEVEL 107 MEQ/L (98-107); CREATININE FOR GFR 0.38 MG/DL (0.55-1.02); GLOMERULAR FILTRATION RATE > 60.0 (>39); GLUCOSE, FASTING 117 MG/DL (83-110); POTASSIUM SERUM 4.3 MEQ/L (3.5-5.1); SODIUM LEVEL 141 MEQ/L (136-145)
[2017-05-19] MEDS: NYSTATIN 100,000 UNITS/GM TOPICAL PWD 15 GM TOP SCH ×2 (08:40→21:37)
[2017-05-19] MEDS: PANTOPRAZOLE 40MG INJ (PROTONIX) (C9113) IV SCH (08:40)
[2017-05-19] MEDS: rOPINIRole 0.25 MG TAB(REQUIP) PEG SCH ×3 (08:40→21:37)
--- NOTE | 2017-05-19 12:52 | IPNPDOC ---
Text Note Date of Service The patient was seen on 05/19/17. NOTE Subjective: Patient is a 71 year old female with a PMHx of Dementia (history of waxing and waning) and Parkinson's disease who presented to the ER after she was found down in her kitchen after a possible drug overdose. She presented to the ER and was put on CPAP because of respiratory depression. Hospital stay significant for dysphagia s/p PEG tube placement, aspiration pneumonia s/p Zosyn. Patient is full code, HCP is her daughter. Patient seen and examined at bedside. Patient is able to respond to verbal stimuli. Has not been ambulating out of bed. Mental status remains poor. Objective: Vitals (See below) General: Lying in bed, no acute distress, comfortable, awake + alert HEENT: NC, AT, bitemporal wasting CVS: RRR, +S1S2 Lungs: Diminished breath sounds bilaterally Abdomen: Soft, ND, NT, + PEG, +BS Extremities: - Edema, - Calf tenderness Assessment and plan: 1. Dysphagia - likely 2/2 progressive dementia - s/p PEG tube placement; without evidence of malfunction or signs infection - tolerating tube feedings - Has been changed to strict NPO given increased secretions and possible aspiration - Will no longer pursue any swallow studies 2. Acute metabolic encephalopathy - likely 2/2 progressive dementia, less likely 2/2 medications - s/p Aspiration pneumonia and electrolyte abnormalities - c/w Donepezil and Ropinirole - Responds to verbal stimuli 3. s/p Aspiration pneumonia - Leukocytosis resolved; s/p fevers - CT chest 04/30: bilateral lower lobe tree in bud pattern compatible with LL pneumonitis; small R pleural effusions - c/w supplemental oxygen and titrate down as tolerated - s/p Zosyn (Completed 7 days of antibiotics; End 05/09/17) 4. s/p Hypernatremia - likely 2/2 poor oral intake - resolved - IVF discontinued - have increased free water via PEG tube with minimal response - Nephrology has signed off - appreciate their input 5. Tremor - Couldn't tolerate Sinemet at home - c/w Requip - not tolerating PO - neurology consultation appreciated 6. Protein calorie malnutrition - 2/2 poor oral intake - See #1 7. s/p Thrombocytopenia - possibly 2/2 infection - no evidence of bleeding 8. GI prophylaxis - c/w Protonix 9. DVT prophylaxis - c/w Heparin SQ Disposition: - I have discussed with the daughter (Sandra Palencia [phone]) she has expressed that she is beginning to understand that her mother will not improve - Has been advised that her mental status is unlikely to improve - Will need to consider making her DNR / DNI and possible [employer] - will discuss with her boyfriend - At this time will need placement VS,Fishbone, I+O VS, Fishbone, I+O Laboratory Tests 05/19/17 05:44 Red Blood Count 3.78 L, Mean Corpuscular Volume 91.0, Mean Corpuscular Hemoglobin 30.1, Mean Corpuscular Hemoglobin Concent 33.0, Red Cell Distribution Width 13.8, Calcium Level 8.7 L Vital Signs Date Time Temp Pulse Resp B/P (MAP) Pulse Ox O2 Delivery O2 Flow Rate FiO2 05/19/17 06:00 98.2 87 18 116/67 (83) 94 Room Air I&O- Last 24 Hours up to 6 AM 05/19/17 06:00 Intake Total 0 ml Balance 0 ml DAISHA STEWART MD May 19, 2017 12:52
[2017-05-19 14:00] VITALS: BP 147/84
[2017-05-19 21:30] VITALS: BP 129/76
[2017-05-19] MEDS: DONEPEZIL 5 MG TAB PEG SCH (21:37)
[2017-05-20] MEDS: HEPARIN SOD (PORCINE) 5000 UNITS/ML VIAL SC SCH ×3 (05:57→21:13)
[2017-05-20 06:00] VITALS: BP 120/62
[2017-05-20 06:47] LABS: MEAN CORPUSCULAR HEMOGLOBIN 30.4 pg (27.0-33.0); MEAN CORPUSCULAR HGB CONC 33.7 g/dl (32.0-36.5); MEAN CORPUSCULAR VOLUME 90.3 fl (80.0-96.0); RED CELL DISTRIBUTION WIDTH 13.9 % (11.5-14.5); WHITE BLOOD COUNT 6.4 K/mm3 (4.0-10.0)
[2017-05-20 06:56] LABS: ANION GAP 9 MEQ/L (8-16); BLOOD UREA NITROGEN 16 MG/DL (7-18); CALCIUM LEVEL 7.8 MG/DL (8.8-10.2); CARBON DIOXIDE LEVEL 25 MEQ/L (21-32); CHLORIDE LEVEL 106 MEQ/L (98-107); CREATININE FOR GFR 0.28 MG/DL (0.55-1.02); GLOMERULAR FILTRATION RATE > 60.0 (>39); GLUCOSE, FASTING 130 MG/DL (83-110); POTASSIUM SERUM 4.1 MEQ/L (3.5-5.1); SODIUM LEVEL 140 MEQ/L (136-145)
[2017-05-20] MEDS: LANSOPRAZOLE SUSPENSION 30 MG/10 ML ORAL SYRINGE (FIRST-LANSOPRAZOLE) GT SCH (09:46)
[2017-05-20] MEDS: rOPINIRole 0.25 MG TAB(REQUIP) PEG SCH ×3 (09:46→20:15)
[2017-05-20] MEDS: NYSTATIN 100,000 UNITS/GM TOPICAL PWD 15 GM TOP SCH ×2 (09:47→20:15)
[2017-05-20] MEDS: DONEPEZIL 5 MG TAB PEG SCH (20:15)
[2017-05-20 22:00] VITALS: BP 125/78
[2017-05-21] MEDS: HEPARIN SOD (PORCINE) 5000 UNITS/ML VIAL SC SCH ×3 (05:22→21:32)
[2017-05-21 06:00] VITALS: BP 110/60
[2017-05-21] MEDS: rOPINIRole 0.25 MG TAB(REQUIP) PEG SCH ×3 (09:29→21:32)
[2017-05-21] MEDS: NYSTATIN 100,000 UNITS/GM TOPICAL PWD 15 GM TOP SCH ×2 (09:29→21:32)
[2017-05-21] MEDS: LANSOPRAZOLE SUSPENSION 30 MG/10 ML ORAL SYRINGE (FIRST-LANSOPRAZOLE) GT SCH (09:29)
[2017-05-21] MEDS: DONEPEZIL 5 MG TAB PEG SCH (21:32)
[2017-05-22] MEDS: HEPARIN SOD (PORCINE) 5000 UNITS/ML VIAL SC SCH ×3 (05:03→21:59)
[2017-05-22 06:00] VITALS: BP 104/64
[2017-05-22] MEDS: LANSOPRAZOLE SUSPENSION 30 MG/10 ML ORAL SYRINGE (FIRST-LANSOPRAZOLE) GT SCH (11:02)
[2017-05-22] MEDS: rOPINIRole 0.25 MG TAB(REQUIP) PEG SCH ×3 (11:02→21:59)
[2017-05-22] MEDS: NYSTATIN 100,000 UNITS/GM TOPICAL PWD 15 GM TOP SCH ×2 (11:02→22:00)
[2017-05-22] MEDS: DONEPEZIL 5 MG TAB PEG SCH (21:59)
[2017-05-23] MEDS: HEPARIN SOD (PORCINE) 5000 UNITS/ML VIAL SC SCH ×3 (05:40→22:45)
[2017-05-23 06:00] VITALS: BP 153/77
[2017-05-23] MEDS: rOPINIRole 0.25 MG TAB(REQUIP) PEG SCH ×3 (09:36→22:47)
[2017-05-23] MEDS: LANSOPRAZOLE SUSPENSION 30 MG/10 ML ORAL SYRINGE (FIRST-LANSOPRAZOLE) GT SCH (09:36)
[2017-05-23] MEDS: NYSTATIN 100,000 UNITS/GM TOPICAL PWD 15 GM TOP SCH ×2 (09:37→22:47)
[2017-05-23] MEDS: DONEPEZIL 5 MG TAB PEG SCH (22:47)
[2017-05-24 06:00] VITALS: BP 138/67
[2017-05-24] MEDS: HEPARIN SOD (PORCINE) 5000 UNITS/ML VIAL SC SCH ×3 (06:29→21:54)
[2017-05-24] MEDS: NYSTATIN 100,000 UNITS/GM TOPICAL PWD 15 GM TOP SCH ×2 (09:00→21:54)
[2017-05-24] MEDS: LANSOPRAZOLE SUSPENSION 30 MG/10 ML ORAL SYRINGE (FIRST-LANSOPRAZOLE) GT SCH (09:24)
[2017-05-24] MEDS: rOPINIRole 0.25 MG TAB(REQUIP) PEG SCH ×3 (09:24→21:53)
[2017-05-24 14:00] VITALS: BP 143/67
[2017-05-24] MEDS: DONEPEZIL 5 MG TAB PEG SCH (21:53)
[2017-05-25] MEDS: HEPARIN SOD (PORCINE) 5000 UNITS/ML VIAL SC SCH ×3 (05:10→22:00)
[2017-05-25] MEDS: ACETAMINOPHEN 650 MG SUPP PR PRN (05:11)
[2017-05-25 06:00] VITALS: BP 137/70
[2017-05-25] MEDS: LANSOPRAZOLE SUSPENSION 30 MG/10 ML ORAL SYRINGE (FIRST-LANSOPRAZOLE) GT SCH (09:38)
[2017-05-25] MEDS: rOPINIRole 0.25 MG TAB(REQUIP) PEG SCH ×3 (09:38→22:00)
[2017-05-25] MEDS: NYSTATIN 100,000 UNITS/GM TOPICAL PWD 15 GM TOP SCH ×2 (09:38→22:01)
[2017-05-25] MEDS: DONEPEZIL 5 MG TAB PEG SCH (22:00)
[2017-05-26] MEDS: HEPARIN SOD (PORCINE) 5000 UNITS/ML VIAL SC SCH ×3 (05:03→22:15)
[2017-05-26 06:00] VITALS: BP 133/64
[2017-05-26] MEDS: LANSOPRAZOLE SUSPENSION 30 MG/10 ML ORAL SYRINGE (FIRST-LANSOPRAZOLE) GT SCH (10:10)
[2017-05-26] MEDS: NYSTATIN 100,000 UNITS/GM TOPICAL PWD 15 GM TOP SCH ×2 (10:10→20:24)
[2017-05-26] MEDS: rOPINIRole 0.25 MG TAB(REQUIP) PEG SCH ×3 (10:10→20:21)
[2017-05-26] MEDS: DONEPEZIL 5 MG TAB PEG SCH (20:21)
[2017-05-27] MEDS: HEPARIN SOD (PORCINE) 5000 UNITS/ML VIAL SC SCH ×2 (05:14→14:32)
[2017-05-27 06:00] VITALS: BP 135/69
[2017-05-27] MEDS: rOPINIRole 0.25 MG TAB(REQUIP) PEG SCH ×3 (09:58→21:00)
[2017-05-27] MEDS: LANSOPRAZOLE SUSPENSION 30 MG/10 ML ORAL SYRINGE (FIRST-LANSOPRAZOLE) GT SCH (09:58)
[2017-05-27] MEDS: NYSTATIN 100,000 UNITS/GM TOPICAL PWD 15 GM TOP SCH ×2 (09:59→21:00)
[2017-05-27 20:40] VITALS: BP 126/68
[2017-05-27] MEDS: DONEPEZIL 5 MG TAB PEG SCH (21:00)
--- NOTE | 2017-05-27 21:40 | REPUSA ---
Clinical history: Congestion. Comparison: 04/29/2017. Findings: The mediastinum and cardiac silhouette are within normal limits. The right lower lobe infil trate has almost completely resolved. However, there is a new left lower lobe infiltrate. No pleural effusion or pneumothorax is seen. The osseous structures and soft tissues are unremarkable. Impression: New left lower lobe infiltrate.
[2017-05-27] MEDS ORDERED: ONDANSETRON 4MG/2ML VIAL (J2405) IV PRN (22:00)
[2017-05-27] MEDS ORDERED: ONDANSETRON 4 MG ORAL DISINTEGRATING TAB (S0181) PO PRN (23:15)
[2017-05-28 06:00] VITALS: BP 123/80
[2017-05-28 06:33] LABS: MEAN CORPUSCULAR HGB CONC 32.8 g/dl (32.0-36.5); MEAN CORPUSCULAR VOLUME 91.4 fl (80.0-96.0); RED CELL DISTRIBUTION WIDTH 13.8 % (11.5-14.5); WHITE BLOOD COUNT 7.4 K/mm3 (4.0-10.0)
--- NOTE | 2017-05-28 07:23 | ECGEPIP ---
Stationary ECG Study [facility] Test Date: 2017-05-27 Pat Name: JORDI HERRERA Department: Room: [place] [address] Gender: F Cardiology Physician: MICHAEL : [id number] Requested By: BRITT DE LA TORRE Order Number: [id number] Reading MD: Yudi Clarke Measurements Intervals [place] Rate: 79 P: 86 MN: 149 QRS: 40 QRSD: 84 T: 83 QT: 361 QTc: 416 Interpretive Statements SINUS RHYTHM RATE SLOWER C/W 05/01/17 MOTION ARTIFACT GONE Electronically Signed On 05-28-2017 7:22:58 EDT by Yudi Clarke
[2017-05-28 08:35] LABS: BASOPHILS 2 % (0-4); SMUDGE CELLS 1+
[2017-05-28] MEDS: rOPINIRole 0.25 MG TAB(REQUIP) PEG SCH ×3 (10:25→21:45)
[2017-05-28] MEDS: LANSOPRAZOLE SUSPENSION 30 MG/10 ML ORAL SYRINGE (FIRST-LANSOPRAZOLE) GT SCH (10:25)
[2017-05-28] MEDS: NYSTATIN 100,000 UNITS/GM TOPICAL PWD 15 GM TOP SCH ×2 (10:26→21:45)
[2017-05-28] MEDS: HEPARIN SOD (PORCINE) 5000 UNITS/ML VIAL SQ SCH ×2 (14:39→22:00)
[2017-05-28] MEDS: SCOPOLAMINE 1.5 MG TRANSDERMAL TOP SCH (21:45)
[2017-05-28] MEDS: DONEPEZIL 5 MG TAB PEG SCH (21:45)
[2017-05-29 06:00] VITALS: BP 150/73
[2017-05-29] MEDS: HEPARIN SOD (PORCINE) 5000 UNITS/ML VIAL SQ SCH ×3 (06:00→21:53)
[2017-05-29] MEDS: LANSOPRAZOLE SUSPENSION 30 MG/10 ML ORAL SYRINGE (FIRST-LANSOPRAZOLE) GT SCH (10:03)
[2017-05-29] MEDS: rOPINIRole 0.25 MG TAB(REQUIP) PEG SCH ×3 (10:03→20:39)
[2017-05-29] MEDS: NYSTATIN 100,000 UNITS/GM TOPICAL PWD 15 GM TOP SCH ×2 (10:04→20:40)
[2017-05-29] MEDS: DONEPEZIL 5 MG TAB PEG SCH (20:39)
[2017-05-30 06:00] VITALS: BP 141/74
[2017-05-30] MEDS: HEPARIN SOD (PORCINE) 5000 UNITS/ML VIAL SQ SCH ×3 (06:20→21:26)
[2017-05-30] MEDS: LANSOPRAZOLE SUSPENSION 30 MG/10 ML ORAL SYRINGE (FIRST-LANSOPRAZOLE) GT SCH (09:04)
[2017-05-30] MEDS: rOPINIRole 0.25 MG TAB(REQUIP) PEG SCH ×3 (09:04→21:24)
[2017-05-30] MEDS: NYSTATIN 100,000 UNITS/GM TOPICAL PWD 15 GM TOP SCH ×2 (09:05→21:25)
[2017-05-30] MEDS: DONEPEZIL 5 MG TAB PEG SCH (21:25)
[2017-05-31 06:00] VITALS: BP 145/75
[2017-05-31] MEDS: HEPARIN SOD (PORCINE) 5000 UNITS/ML VIAL SQ SCH ×3 (06:02→21:05)
[2017-05-31 08:25] VITALS: BP 131/75
[2017-05-31] MEDS: rOPINIRole 0.25 MG TAB(REQUIP) PEG SCH ×3 (10:03→21:05)
[2017-05-31] MEDS: NYSTATIN 100,000 UNITS/GM TOPICAL PWD 15 GM TOP SCH ×2 (10:04→21:10)
[2017-05-31] MEDS: LANSOPRAZOLE SUSPENSION 30 MG/10 ML ORAL SYRINGE (FIRST-LANSOPRAZOLE) GT SCH (10:04)
--- NOTE | 2017-05-31 14:28 | IPN ---
DATE: 05/31/2017 Patient seen and examined at the bedside. Chart has been reviewed. Patient has her eyes closed with essential tremors, her hand across her chest. She answers questions while her eyes are closed. She is wake and alert, only to person. VITAL SIGNS: Temperature 98.7, pulse 80, respiratory rate 16, blood pressure 130/75, 97% on 2 liters nasal cannula. Generally awake, alert and oriented to person only. Has her eyes closed, responds with mumbles but appropriate. HEENT normocephalic, atraumatic, bitemporal wasting. Patient is arousable, answers questions but has her eyes closed and minimally cooperative with exam. Heart S1 and S2, sinus rhythm. Abdomen is soft, nontender, nondistended. PEG tube in place. Extremities no pitting edema or calf tenderness. Laboratory data reviewed. Imaging studies reviewed. The patient's repeat chest x-ray is unchanged. Patient had a CT chest on 04/30 with bibasilar infiltrate. Chest x-ray shows a left lower lobe infiltrate. The patient is afebrile with no white count and has no complaints of cough, shortness of breath. IMPRESSION: 71-year-old female with a history of dementia, waxing and waning Parkinson's disease, who presented with possible drug overdose, altered mental status. The patient was treated for aspiration pneumonia, status post Zosyn, PEG tube placement. Still a FULL CODE. Healthcare proxy is her daughter. Awaiting placement. Dysphagia, secondary to progressive dementia, status post PEG tube placement. Strict nothing by mouth status given nothing by mouth status given secretions and aspiration. Acute metabolic encephalopathy secondary to worsening dementia and medications. Continue with donepezil and ropinirole. Responds to verbal stimuli. Status post aspiration pneumonia. The patient currently denies any fevers, chills or cough, despite no finding of infiltrate in the left lower lobe. Patient had a CT chest showing bilateral lower lobe with pneumonitis and small right pleural effusion treated with seven days of antibiotics due to risk of C. Difficile. No empiric antibiotics for now, await for symptoms cough, shortness of breath, fever, or worsening white count before restarting antibiotics. Hypernatremia and dehydration. PEG tube placement currently. Tremors. . Malnutrition secondary to poor intake. Currently with PEG tube. Thrombocytopenia secondary to infection. No signs of bleeding. [facility]
[2017-05-31] MEDS: DONEPEZIL 5 MG TAB PEG SCH (21:05)
[2017-05-31] MEDS: SCOPOLAMINE 1.5 MG TRANSDERMAL TOP SCH (21:09)
[2017-06-01] MEDS: HEPARIN SOD (PORCINE) 5000 UNITS/ML VIAL SQ SCH ×3 (05:33→21:42)
[2017-06-01 06:00] VITALS: BP 143/89
[2017-06-01] MEDS: NYSTATIN 100,000 UNITS/GM TOPICAL PWD 15 GM TOP SCH ×2 (09:49→21:42)
[2017-06-01] MEDS: rOPINIRole 0.25 MG TAB(REQUIP) PEG SCH ×3 (09:49→21:41)
[2017-06-01] MEDS: LANSOPRAZOLE SUSPENSION 30 MG/10 ML ORAL SYRINGE (FIRST-LANSOPRAZOLE) GT SCH (09:50)
--- NOTE | 2017-06-01 12:36 | IPN ---
DATE: 06/01/2017 71-year-old female seen at bedside, resting. She denies any complaints. No overnight issues reported. No chest pain. No nausea, vomiting. Temperature is 98.4, pulse 78, respiratory rate 17, BP 143/89, SPO2 90% on 2 liters. General: The patient is alert. HEENT: Unremarkable. Lungs: Clear. Heart: Regular rhythm. Abdomen: Soft. Extremities: No edema. None recorded this week. We will check to start her on biweekly lab checks. ASSESSMENT/PLAN: 1. Aspiration pneumonia status post PEG tube placement and Zosyn which she has completed 2. Parkinson's disease with dementia. She presented initially with altered mental status, this does appear to be moving back to her baseline. 3. Dysphasia secondary to progressive dementia status post PET tube placement. Strict nothing by mouth status given secretions and risk for aspiration. 4. Acute metabolic encephalopathy secondary to worsening dementia with medications. She has currently showed some slight improvement from my understanding. 5. Status post aspiration pneumonia. No fevers. Her CT scan previously showed bilateral lower lobe pneumonitis and small right pleural effusion. She received 7 days of antibiotics discontinued due to risk of C diff. No further empiric antibiotics unless she becomes symptomatic. 6. Hypernatremia and dehydration. PET tube placement is in place. 7. Malnutrition secondary to poor intake. Currently has PET tube placement. 8. Thrombocytopenia secondary to infection. No signs of bleeding. Her platelet count has normalized and she has been placed on heparin for deep venous thrombosis (DVT) prophylaxis. DVT prophylaxis subcutaneous heparin. CURRENT MEDICATION LIST INCLUDES: - Tylenol - Aricept - DuoNebs - subcutaneous heparin. - Sprays all - lansoprazole - milk of magnesia - nystatin powder - Zofran ODT - Requip - scopolamine DISPOSITION: The patient is currently chcf status and awaiting placement. She remains DO NOT RESUSCITATE/DO NOT INTUBATE and we may need to have further discussion with the healthcare proxy and family members to better assess what their goals of treatment are.
[2017-06-01] MEDS: ACETAMINOPHEN 650 MG SUPP PR PRN (21:39)
[2017-06-01] MEDS: DONEPEZIL 5 MG TAB PEG SCH (21:41)
[2017-06-02 04:54] LABS: BASO % 0.7 % (0.0-1.0); EOS # 0.1 K/mm3 (0.0-0.50); EOS % 1.7 % (0.0-3.0); LARGE UNSTAINED CELL # 0.1 K/mm3 (0.0-0.4); LARGE UNSTAINED CELL % 1.5 % (0.0-4.0); LYMPH # 1.6 K/mm3 (1.5-4.5); LYMPH % 23.8 % (24.0-44.0); MEAN CORPUSCULAR HEMOGLOBIN 30.2 pg (27.0-33.0); MEAN CORPUSCULAR HGB CONC 32.7 g/dl (32.0-36.5); MEAN CORPUSCULAR VOLUME 92.3 fl (80.0-96.0); MONO # 0.3 K/mm3 (0.0-0.8); MONO % 4.9 % (0.0-5.0); NEUTROPHILS # 4.4 K/mm3 (1.8-7.7); NEUTROPHILS % 67.5 % (36.0-66.0); PLATELET COUNT, AUTOMATED 223 k/mm3 (150-450); WHITE BLOOD COUNT 6.4 K/mm3 (4.0-10.0)
[2017-06-02 05:00] LABS: INR 1.07
[2017-06-02] MEDS: HEPARIN SOD (PORCINE) 5000 UNITS/ML VIAL SQ SCH ×3 (05:10→21:01)
[2017-06-02 06:00] VITALS: BP 136/77
[2017-06-02] MEDS: NYSTATIN 100,000 UNITS/GM TOPICAL PWD 15 GM TOP SCH ×2 (07:59→21:01)
[2017-06-02] MEDS: rOPINIRole 0.25 MG TAB(REQUIP) PEG SCH ×3 (08:00→21:01)
[2017-06-02] MEDS: LANSOPRAZOLE SUSPENSION 30 MG/10 ML ORAL SYRINGE (FIRST-LANSOPRAZOLE) GT SCH (08:00)
[2017-06-02] MEDS: DONEPEZIL 5 MG TAB PEG SCH (21:01)
[2017-06-03] MEDS: HEPARIN SOD (PORCINE) 5000 UNITS/ML VIAL SQ SCH ×3 (05:23→21:14)
[2017-06-03 05:56] LABS: MEAN CORPUSCULAR HEMOGLOBIN 29.9 pg (27.0-33.0); MEAN CORPUSCULAR HGB CONC 32.2 g/dl (32.0-36.5); RED CELL DISTRIBUTION WIDTH 13.9 % (11.5-14.5); WHITE BLOOD COUNT 6.4 K/mm3 (4.0-10.0)
[2017-06-03 06:20] LABS: ANION GAP 9 MEQ/L (8-16); BLOOD UREA NITROGEN 22 MG/DL (7-18); CALCIUM LEVEL 8.5 MG/DL (8.8-10.2); CARBON DIOXIDE LEVEL 28 MEQ/L (21-32); CHLORIDE LEVEL 109 MEQ/L (98-107); CREATININE FOR GFR 0.31 MG/DL (0.55-1.02); GLOMERULAR FILTRATION RATE > 60.0 (>39); GLUCOSE, FASTING 136 MG/DL (83-110); POTASSIUM SERUM 4.2 MEQ/L (3.5-5.1); SODIUM LEVEL 146 MEQ/L (136-145)
[2017-06-03] MEDS: NYSTATIN 100,000 UNITS/GM TOPICAL PWD 15 GM TOP SCH ×2 (08:40→21:13)
[2017-06-03] MEDS: rOPINIRole 0.25 MG TAB(REQUIP) PEG SCH ×3 (08:40→21:13)
[2017-06-03] MEDS: LANSOPRAZOLE SUSPENSION 30 MG/10 ML ORAL SYRINGE (FIRST-LANSOPRAZOLE) GT SCH (08:40)
[2017-06-03 18:29] LABS: ANION GAP 7 MEQ/L (8-16); BLOOD UREA NITROGEN 22 MG/DL (7-18); CALCIUM LEVEL 8.6 MG/DL (8.8-10.2); CARBON DIOXIDE LEVEL 30 MEQ/L (21-32); CHLORIDE LEVEL 110 MEQ/L (98-107); CREATININE FOR GFR 0.32 MG/DL (0.55-1.02); GLOMERULAR FILTRATION RATE > 60.0 (>39); GLUCOSE, FASTING 129 MG/DL (83-110); POTASSIUM SERUM 4.1 MEQ/L (3.5-5.1); SODIUM LEVEL 147 MEQ/L (136-145)
[2017-06-03 19:05] LABS: MEAN CORPUSCULAR HGB CONC 32.2 g/dl (32.0-36.5); WHITE BLOOD COUNT 5.3 K/mm3 (4.0-10.0)
[2017-06-03] MEDS: DONEPEZIL 5 MG TAB PEG SCH (21:13)
[2017-06-03] MEDS: SCOPOLAMINE 1.5 MG TRANSDERMAL TOP SCH (21:13)
[2017-06-04] MEDS: HEPARIN SOD (PORCINE) 5000 UNITS/ML VIAL SQ SCH ×3 (05:04→21:23)
[2017-06-04 06:00] VITALS: BP 134/72
[2017-06-04] MEDS: LANSOPRAZOLE SUSPENSION 30 MG/10 ML ORAL SYRINGE (FIRST-LANSOPRAZOLE) GT SCH (09:45)
[2017-06-04] MEDS: rOPINIRole 0.25 MG TAB(REQUIP) PEG SCH ×3 (09:45→21:22)
[2017-06-04] MEDS: NYSTATIN 100,000 UNITS/GM TOPICAL PWD 15 GM TOP SCH ×2 (09:46→21:22)
[2017-06-04] MEDS: DONEPEZIL 5 MG TAB PEG SCH (21:22)
[2017-06-05 06:00] VITALS: BP 140/88
[2017-06-05] MEDS: HEPARIN SOD (PORCINE) 5000 UNITS/ML VIAL SQ SCH ×3 (06:33→21:09)
[2017-06-05] MEDS: NYSTATIN 100,000 UNITS/GM TOPICAL PWD 15 GM TOP SCH ×2 (09:00→21:10)
[2017-06-05] MEDS: rOPINIRole 0.25 MG TAB(REQUIP) PEG SCH ×3 (09:59→21:09)
[2017-06-05] MEDS: LANSOPRAZOLE SUSPENSION 30 MG/10 ML ORAL SYRINGE (FIRST-LANSOPRAZOLE) GT SCH (09:59)
[2017-06-05] MEDS: DONEPEZIL 5 MG TAB PEG SCH (21:09)
[2017-06-06] MEDS: HEPARIN SOD (PORCINE) 5000 UNITS/ML VIAL SQ SCH ×3 (05:49→21:36)
[2017-06-06] MEDS: NYSTATIN 100,000 UNITS/GM TOPICAL PWD 15 GM TOP SCH ×2 (09:00→21:34)
[2017-06-06] MEDS: LANSOPRAZOLE SUSPENSION 30 MG/10 ML ORAL SYRINGE (FIRST-LANSOPRAZOLE) GT SCH (09:31)
[2017-06-06] MEDS: rOPINIRole 0.25 MG TAB(REQUIP) PEG SCH ×3 (09:31→21:34)
[2017-06-06] MEDS: DONEPEZIL 5 MG TAB PEG SCH (21:34)
[2017-06-06] MEDS: SCOPOLAMINE 1.5 MG TRANSDERMAL TOP SCH (21:35)
[2017-06-07] MEDS: HEPARIN SOD (PORCINE) 5000 UNITS/ML VIAL SQ SCH ×3 (05:22→21:35)
[2017-06-07 06:00] VITALS: BP 140/64
[2017-06-07] MEDS: rOPINIRole 0.25 MG TAB(REQUIP) PEG SCH ×3 (09:53→21:35)
[2017-06-07] MEDS: LANSOPRAZOLE SUSPENSION 30 MG/10 ML ORAL SYRINGE (FIRST-LANSOPRAZOLE) GT SCH (09:54)
[2017-06-07] MEDS: NYSTATIN 100,000 UNITS/GM TOPICAL PWD 15 GM TOP SCH ×2 (09:54→21:35)
[2017-06-07 18:01] LABS: MEAN CORPUSCULAR HEMOGLOBIN 31.1 pg (27.0-33.0); MEAN CORPUSCULAR HGB CONC 33.9 g/dl (32.0-36.5); WHITE BLOOD COUNT 7.1 K/mm3 (4.0-10.0)
[2017-06-07 18:08] LABS: ANION GAP 7 MEQ/L (8-16); BLOOD UREA NITROGEN 19 MG/DL (7-18); CALCIUM LEVEL 8.9 MG/DL (8.8-10.2); CARBON DIOXIDE LEVEL 30 MEQ/L (21-32); CHLORIDE LEVEL 108 MEQ/L (98-107); CREATININE FOR GFR 0.26 MG/DL (0.55-1.02); GLOMERULAR FILTRATION RATE > 60.0 (>39); GLUCOSE, FASTING 126 MG/DL (83-110); POTASSIUM SERUM 4.3 MEQ/L (3.5-5.1); SODIUM LEVEL 145 MEQ/L (136-145)
[2017-06-07] MEDS: DONEPEZIL 5 MG TAB PEG SCH (21:35)
[2017-06-08] MEDS: HEPARIN SOD (PORCINE) 5000 UNITS/ML VIAL SQ SCH ×3 (05:09→21:58)
[2017-06-08 06:00] VITALS: BP 131/74
[2017-06-08] MEDS: rOPINIRole 0.25 MG TAB(REQUIP) PEG SCH ×3 (09:36→20:19)
[2017-06-08] MEDS: LANSOPRAZOLE SUSPENSION 30 MG/10 ML ORAL SYRINGE (FIRST-LANSOPRAZOLE) GT SCH (09:36)
[2017-06-08] MEDS: NYSTATIN 100,000 UNITS/GM TOPICAL PWD 15 GM TOP SCH ×2 (09:37→20:19)
[2017-06-08] MEDS: DONEPEZIL 5 MG TAB PEG SCH (20:19)
[2017-06-09] MEDS: ACETAMINOPHEN 650 MG SUPP PR PRN (00:02)
[2017-06-09] MEDS ORDERED: ACETAMINOPHEN TAB 650MG DOSE (2X325MG) PO ONE (03:30)
[2017-06-09] MEDS: HEPARIN SOD (PORCINE) 5000 UNITS/ML VIAL SQ SCH ×3 (05:18→21:26)
[2017-06-09 06:00] VITALS: BP 126/56
[2017-06-09 07:39] LABS: MEAN CORPUSCULAR HEMOGLOBIN 30.3 pg (27.0-33.0); MEAN CORPUSCULAR HGB CONC 32.9 g/dl (32.0-36.5); MEAN CORPUSCULAR VOLUME 92.1 fl (80.0-96.0); WHITE BLOOD COUNT 6.1 K/mm3 (4.0-10.0)
[2017-06-09] MEDS ORDERED: POLYVINYL ALCOHOL OPHTH SOLN 15 ML(LIQUITEARS) OU PRN (08:30)
[2017-06-09 08:55] VITALS: BP 153/81
[2017-06-09] MEDS: MORPHINE SULFATE ORAL SOLN 10 MG/5 ML UD SL PRN (10:12)
[2017-06-09] MEDS: LANSOPRAZOLE SUSPENSION 30 MG/10 ML ORAL SYRINGE (FIRST-LANSOPRAZOLE) GT SCH (10:55)
[2017-06-09] MEDS: NYSTATIN 100,000 UNITS/GM TOPICAL PWD 15 GM TOP SCH ×2 (10:55→21:26)
[2017-06-09] MEDS: rOPINIRole 0.25 MG TAB(REQUIP) PEG SCH ×3 (10:55→21:25)
--- NOTE | 2017-06-09 16:47 | IPN ---
DATE: 06/09/2017 SUBJECTIVE: Today the patient tells me that she has some pain in her shoulders and her back, but she states that this is not new. She is awake, alert. She is oriented to person. She knows she is at [facility] but cannot tell me the year or which city she is in. OBJECTIVE: VITAL SIGNS: Temperature 98.6, pulse 78, respiratory rate 15, blood pressure (BP) 153/81, oxygen saturation 98% on 2 liters nasal cannula. GENERAL: She is a frail, cachectic, elderly female, resting comfortably in bed. She does not appear to be in any acute distress. HEENT: She has dry mucous membranes, dry eyes. No elevation in central venous pressure (CVP) is appreciated. She is minimally cooperative with exam but no obvious focal neurological deficits on cranial nerve observation., CARDIOVASCULAR: S1, S2, regular. RESPIRATORY: Clear. She is wasted. ABDOMEN: Abdomen is scaphoid with a percutaneous endoscopic gastrostomy (PEG) tube in place. EXTREMITIES: Wasted. LABORATORY STUDIES: WBC 6.1, hemoglobin 12.0, platelet count 203. Chemistry panel from the 4th reveals a sodium of 145, potassium 4.3, chloride 108, bicarbonate 30, BUN 19, creatinine 0.2. No recent microbiology or imaging. ASSESSMENT AND PLAN: This is a 71-year-old female who is status post treatment for aspiration pneumonia, percutaneous endoscopic gastrostomy (PEG) tube placement, currently awaiting placement. 1. Aspiration pneumonia, status post PEG tube placement. She is on tube feeds, tolerating them well. She completed a course of Zosyn while here. The family is requsting beds only at [facility] or [facility], and as such she remains alternative level of care (ALC) status, awaiting dispositioning. 2. Parkinson's with dementia. She initially prednisone with altered mental status. Does appear to have improved back to her baseline. Today is particularly a good stay. She was able to get up and sit in a chair and have a conversation. If she were to have a worsening of her symptoms or mental status, could consider a trial of Sinemet. She is currently on Requip. Her affect is quite flat at this time. I will titrate up her Requip to 0.5 mg three times a day and see if this has any benefit or positive effect on her affect and interaction. She does have documented history of Parkinson's-associated dementia and had an inability to protect her airway. Because of this, her overall prognosis appears to be quite poor in the snf. 3. Dysphagia related to progressive dementia, status post PEG tube placement, and she is strictly nothing by mouth. 4. Acute on chronic metabolic encephalopathy related to dementia, infection. She is reportedly at her baseline. 5. Hypernatremia, resolved. 6. Thrombocytopenia, felt to be related to her infection, resolved. 7. Deep vein thrombosis (DVT) prophylaxis. She is on heparin. DISPOSITION: The patient is DO NOT RESUSCITATE, DO NOT INTUBATE. Her overall prognosis remains poor. Is currently awaiting placement.
[2017-06-09] MEDS: SCOPOLAMINE 1.5 MG TRANSDERMAL TOP SCH (21:25)
[2017-06-09] MEDS: DONEPEZIL 5 MG TAB PEG SCH (21:25)
[2017-06-10] MEDS: HEPARIN SOD (PORCINE) 5000 UNITS/ML VIAL SQ SCH ×3 (05:22→22:00)
[2017-06-10 06:00] VITALS: BP 160/81
[2017-06-10] MEDS: LANSOPRAZOLE SUSPENSION 30 MG/10 ML ORAL SYRINGE (FIRST-LANSOPRAZOLE) GT SCH (09:38)
[2017-06-10] MEDS: rOPINIRole 0.25 MG TAB(REQUIP) PEG SCH ×3 (09:38→22:14)
[2017-06-10] MEDS: NYSTATIN 100,000 UNITS/GM TOPICAL PWD 15 GM TOP SCH ×2 (09:39→21:00)
[2017-06-10] MEDS: MORPHINE SULFATE ORAL SOLN 10 MG/5 ML UD SL PRN ×2 (10:10→22:15)
[2017-06-10 17:00] LABS: MEAN CORPUSCULAR HEMOGLOBIN 29.9 pg (27.0-33.0); MEAN CORPUSCULAR HGB CONC 31.8 g/dl (32.0-36.5); MEAN CORPUSCULAR VOLUME 94.2 fl (80.0-96.0); RED CELL DISTRIBUTION WIDTH 14.1 % (11.5-14.5); WHITE BLOOD COUNT 5.7 K/mm3 (4.0-10.0)
[2017-06-10 18:13] LABS: ANION GAP 8 MEQ/L (8-16); BLOOD UREA NITROGEN 19 MG/DL (7-18); CALCIUM LEVEL 8.1 MG/DL (8.8-10.2); CARBON DIOXIDE LEVEL 29 MEQ/L (21-32); CHLORIDE LEVEL 105 MEQ/L (98-107); CREATININE FOR GFR 0.21 MG/DL (0.55-1.02); GLOMERULAR FILTRATION RATE > 60.0 (>39); GLUCOSE, FASTING 123 MG/DL (83-110); SODIUM LEVEL 142 MEQ/L (136-145)
[2017-06-10] MEDS: DONEPEZIL 5 MG TAB PEG SCH (22:14)
[2017-06-11] MEDS: HEPARIN SOD (PORCINE) 5000 UNITS/ML VIAL SQ SCH ×3 (05:19→22:06)
[2017-06-11 06:00] VITALS: BP 143/77
[2017-06-11] MEDS: NYSTATIN 100,000 UNITS/GM TOPICAL PWD 15 GM TOP SCH ×2 (09:00→22:06)
[2017-06-11] MEDS: rOPINIRole 0.25 MG TAB(REQUIP) PEG SCH ×3 (09:18→22:07)
[2017-06-11] MEDS: LANSOPRAZOLE SUSPENSION 30 MG/10 ML ORAL SYRINGE (FIRST-LANSOPRAZOLE) GT SCH (09:18)
[2017-06-11] MEDS: MORPHINE SULFATE ORAL SOLN 10 MG/5 ML UD SL PRN (09:25)
[2017-06-11] MEDS: DONEPEZIL 5 MG TAB PEG SCH (22:07)
[2017-06-12] MEDS: HEPARIN SOD (PORCINE) 5000 UNITS/ML VIAL SQ SCH ×3 (05:41→21:42)
[2017-06-12 06:00] VITALS: BP 125/67
[2017-06-12 09:00] VITALS: BP 112/66
[2017-06-12] MEDS: LANSOPRAZOLE SUSPENSION 30 MG/10 ML ORAL SYRINGE (FIRST-LANSOPRAZOLE) GT SCH (10:24)
[2017-06-12] MEDS: rOPINIRole 0.25 MG TAB(REQUIP) PEG SCH ×3 (10:25→21:42)
[2017-06-12] MEDS: NYSTATIN 100,000 UNITS/GM TOPICAL PWD 15 GM TOP SCH ×2 (10:25→21:43)
[2017-06-12 14:30] VITALS: BP 122/58
[2017-06-12] MEDS: DONEPEZIL 5 MG TAB PEG SCH (21:42)
[2017-06-12] MEDS: SCOPOLAMINE 1.5 MG TRANSDERMAL TOP SCH (21:42)
[2017-06-13] MEDS: HEPARIN SOD (PORCINE) 5000 UNITS/ML VIAL SQ SCH ×3 (05:14→21:47)
[2017-06-13 06:00] VITALS: BP 132/74
[2017-06-13] MEDS: rOPINIRole 0.25 MG TAB(REQUIP) PEG SCH ×3 (09:57→21:47)
[2017-06-13] MEDS: NYSTATIN 100,000 UNITS/GM TOPICAL PWD 15 GM TOP SCH ×2 (09:57→21:47)
[2017-06-13] MEDS: LANSOPRAZOLE SUSPENSION 30 MG/10 ML ORAL SYRINGE (FIRST-LANSOPRAZOLE) GT SCH (09:57)
[2017-06-13] MEDS: DONEPEZIL 5 MG TAB PEG SCH (21:47)
[2017-06-14 05:23] VITALS: BP 165/86
[2017-06-14] MEDS: HEPARIN SOD (PORCINE) 5000 UNITS/ML VIAL SQ SCH ×3 (05:26→21:25)
[2017-06-14] MEDS: LANSOPRAZOLE SUSPENSION 30 MG/10 ML ORAL SYRINGE (FIRST-LANSOPRAZOLE) GT SCH (08:41)
[2017-06-14] MEDS: rOPINIRole 0.25 MG TAB(REQUIP) PEG SCH ×3 (08:41→21:25)
[2017-06-14] MEDS: MOM 30ML SUSPENSION UDC PO PRN (08:41)
[2017-06-14] MEDS: NYSTATIN 100,000 UNITS/GM TOPICAL PWD 15 GM TOP SCH ×2 (08:41→21:25)
[2017-06-14 16:45] LABS: MEAN CORPUSCULAR HEMOGLOBIN 30.1 pg (27.0-33.0); MEAN CORPUSCULAR HGB CONC 32.1 g/dl (32.0-36.5); MEAN CORPUSCULAR VOLUME 93.8 fl (80.0-96.0); RED CELL DISTRIBUTION WIDTH 14.3 % (11.5-14.5); WHITE BLOOD COUNT 5.6 K/mm3 (4.0-10.0)
[2017-06-14 16:55] LABS: ANION GAP 2 MEQ/L (8-16); BLOOD UREA NITROGEN 14 MG/DL (7-18); CALCIUM LEVEL 8.7 MG/DL (8.8-10.2); CARBON DIOXIDE LEVEL 34 MEQ/L (21-32); CHLORIDE LEVEL 104 MEQ/L (98-107); CREATININE FOR GFR 0.15 MG/DL (0.55-1.02); GLOMERULAR FILTRATION RATE > 60.0 (>39); GLUCOSE, FASTING 112 MG/DL (83-110); POTASSIUM SERUM 4.4 MEQ/L (3.5-5.1); SODIUM LEVEL 140 MEQ/L (136-145)
[2017-06-14] MEDS: DONEPEZIL 5 MG TAB PEG SCH (21:25)
[2017-06-15 05:15] VITALS: BP 146/80
[2017-06-15] MEDS: HEPARIN SOD (PORCINE) 5000 UNITS/ML VIAL SQ SCH ×3 (05:31→22:00)
[2017-06-15] MEDS: LANSOPRAZOLE SUSPENSION 30 MG/10 ML ORAL SYRINGE (FIRST-LANSOPRAZOLE) GT SCH (08:28)
[2017-06-15] MEDS: rOPINIRole 0.25 MG TAB(REQUIP) PEG SCH ×3 (08:28→21:00)
[2017-06-15] MEDS: NYSTATIN 100,000 UNITS/GM TOPICAL PWD 15 GM TOP SCH ×2 (08:32→21:00)
--- NOTE | 2017-06-15 15:55 | IPN ---
DATE: 06/15/2017 SUBJECTIVE: The patient tells me that she feels okay. She answers yes or no to questions. I asked her if she feels any pain and she denies any. OBJECTIVE: VITAL SIGNS: Temperature 97.8, pulse 84, respiratory rate 18, blood pressure 146/80, oxygen saturation 100% on two liters nasal cannula. GENERAL: She is a frail, cachectic, elderly female laying in bed. She does not appear to be in any acute distress. HEENT: Dry mucous membranes. No elevation of central venous pressure (CVP). NEUROLOGIC: She does no follow commands. CARDIOVASCULAR: S1, S2, regular. RESPIRATORY: Clear. ABDOMEN: There is a percutaneous endoscopic gastrostomy (PEG) tube in place. EXTREMITIES: No clubbing, cyanosis, or edema. LABORATORY STUDIES: From 06/14/2017, WBC 5.6, hemoglobin 11.8, platelet count 204. Chemistry panel: Sodium 140, potassium 4.4, chloride 104, bicarbonate 32, BUN 14, creatinine 0.1. No new imaging or recent microbiology. ASSESSMENT AND PLAN: This is a 71-year-old female who is status post treatment for aspiration pneumonia and percutaneous endoscopic gastrostomy (PEG) tube placement, currently awaiting placement. 1. Aspiration pneumonia, status post PEG tube placement. She is on tube feeds and tolerating them well. She has completed a course of Zosyn while here. The family is requesting beds only at [facility] or [facility] ([facility]), and as such she remains alternative level of care (ALC), awaiting disposition. 2. Parkinson's with dementia. She does appear, as per report, to be back to her baseline. I have asked the nursing staff to get her up and into the chair. During my last visit with her, I did titrate up her Requip and there was some subtle improvement. We will continue to monitor her clinically. If she continues to improve, continue titrating up further. Given that she has a history of Parkinson's associated dementia and inability to protect her airway warranting a feeding tube, overall her prognosis appears to be quite poor. 3. Dysphagia, related to progressive dementia status post PEG tube placement. She has nothing by mouth. 4. Acute on chronic metabolic encephalopathy, related to dementia and infection. She is now reportedly at her baseline. 5. Hypernatremia, resolved. 6. Thrombocytopenia, related to her infection, resolved. 7. Deep vein thrombosis (DVT) prophylaxis. She is on heparin. DISPOSITION: The patient is DO NOT RESUSCITATE (DNR)/DO NOT INTUBATE (DNI). Her overall prognosis remains poor. She is currently awaiting placement.
[2017-06-15] MEDS: SCOPOLAMINE 1.5 MG TRANSDERMAL TOP SCH (21:00)
[2017-06-15] MEDS: DONEPEZIL 5 MG TAB PEG SCH (21:00)
[2017-06-16 05:15] VITALS: BP 135/75
[2017-06-16] MEDS: HEPARIN SOD (PORCINE) 5000 UNITS/ML VIAL SQ SCH ×3 (05:26→20:40)
[2017-06-16 08:04] VITALS: BP 126/75
[2017-06-16] MEDS: rOPINIRole 0.25 MG TAB(REQUIP) PEG SCH ×3 (10:54→20:40)
[2017-06-16] MEDS: NYSTATIN 100,000 UNITS/GM TOPICAL PWD 15 GM TOP SCH ×2 (10:55→20:40)
[2017-06-16] MEDS: LANSOPRAZOLE SUSPENSION 30 MG/10 ML ORAL SYRINGE (FIRST-LANSOPRAZOLE) GT SCH (10:55)
[2017-06-16] MEDS: MORPHINE SULFATE ORAL SOLN 10 MG/5 ML UD SL PRN (13:31)
[2017-06-16] MEDS: DONEPEZIL 5 MG TAB PEG SCH (20:39)
[2017-06-17] MEDS: HEPARIN SOD (PORCINE) 5000 UNITS/ML VIAL SQ SCH ×3 (05:07→21:33)
[2017-06-17 06:00] VITALS: BP 145/81
[2017-06-17] MEDS: LANSOPRAZOLE SUSPENSION 30 MG/10 ML ORAL SYRINGE (FIRST-LANSOPRAZOLE) GT SCH (09:50)
[2017-06-17] MEDS: rOPINIRole 0.25 MG TAB(REQUIP) PEG SCH ×3 (09:50→20:40)
[2017-06-17] MEDS: NYSTATIN 100,000 UNITS/GM TOPICAL PWD 15 GM TOP SCH ×2 (09:51→20:40)
[2017-06-17 15:03] VITALS: BP 136/72
[2017-06-17] MEDS: MOM 30ML SUSPENSION UDC PO PRN (15:18)
[2017-06-17 16:42] LABS: MEAN CORPUSCULAR HEMOGLOBIN 30.8 pg (27.0-33.0); MEAN CORPUSCULAR HGB CONC 33.4 g/dl (32.0-36.5); MEAN CORPUSCULAR VOLUME 92.2 fl (80.0-96.0); RED CELL DISTRIBUTION WIDTH 14.3 % (11.5-14.5)
[2017-06-17 17:05] LABS: ANION GAP 9 MEQ/L (8-16); BLOOD UREA NITROGEN 15 MG/DL (7-18); CALCIUM LEVEL 8.9 MG/DL (8.8-10.2); CARBON DIOXIDE LEVEL 29 MEQ/L (21-32); CHLORIDE LEVEL 104 MEQ/L (98-107); CREATININE FOR GFR 0.22 MG/DL (0.55-1.02); GLOMERULAR FILTRATION RATE > 60.0 (>39); GLUCOSE, FASTING 101 MG/DL (83-110); POTASSIUM SERUM 4.3 MEQ/L (3.5-5.1); SODIUM LEVEL 142 MEQ/L (136-145)
[2017-06-17] MEDS: DONEPEZIL 5 MG TAB PEG SCH (20:40)
[2017-06-18] MEDS: HEPARIN SOD (PORCINE) 5000 UNITS/ML VIAL SQ SCH ×3 (05:25→21:52)
[2017-06-18 06:00] VITALS: BP 138/82
[2017-06-18] MEDS: LANSOPRAZOLE SUSPENSION 30 MG/10 ML ORAL SYRINGE (FIRST-LANSOPRAZOLE) GT SCH (09:41)
[2017-06-18] MEDS: rOPINIRole 0.25 MG TAB(REQUIP) PEG SCH ×3 (09:41→21:52)
[2017-06-18] MEDS: NYSTATIN 100,000 UNITS/GM TOPICAL PWD 15 GM TOP SCH ×2 (09:42→21:53)
[2017-06-18] MEDS: SCOPOLAMINE 1.5 MG TRANSDERMAL TOP SCH (21:52)
[2017-06-18] MEDS: DONEPEZIL 5 MG TAB PEG SCH (21:52)
[2017-06-19] MEDS: HEPARIN SOD (PORCINE) 5000 UNITS/ML VIAL SQ SCH ×3 (05:08→21:34)
[2017-06-19 06:00] VITALS: BP 140/85
[2017-06-19] MEDS: LANSOPRAZOLE SUSPENSION 30 MG/10 ML ORAL SYRINGE (FIRST-LANSOPRAZOLE) GT SCH (09:24)
[2017-06-19] MEDS: rOPINIRole 0.25 MG TAB(REQUIP) PEG SCH ×3 (09:24→21:34)
[2017-06-19] MEDS: NYSTATIN 100,000 UNITS/GM TOPICAL PWD 15 GM TOP SCH ×2 (09:24→21:34)
--- NOTE | 2017-06-19 18:03 | IPN ---
DATE: 06/19/2017 SUBJECTIVE: Ms. Chi was seen and examined. She has no complaints. She only answers simply. OBJECTIVE: VITAL SIGNS: On physical exam, temperature is 98, pulse 99, respiratory rate 16, blood pressure 140/85, 96% on room air. GENERAL: She is awake, appropriately responding to commands. She is cachectic. NECK: Supple. HEART: Distant sounding normal S1, S2. RESPIRATORY: Breathing is symmetrical, rested. ABDOMEN: She has a percutaneous endoscopic gastrostomy (PEG) tube. ASSESSMENT: 1. A 71-year-old female status post aspiration pneumonia with PEG tube, awaiting placement. She is continued on tube feeds and she is waiting for placement. 2. The patient has Parkinson's and parkinsonian dementia. She was opening her eyes to my voice that may have not been to commands. 3. The patient has dysphasia. 4. The patient has acute on chronic metabolic encephalopathy. 5. The patient has hyponatremia. 6. The patient has heparin for deep venous thrombosis (DVT) prophylaxis. 7. The patient has resolved thrombocytopenia.
[2017-06-19] MEDS: DONEPEZIL 5 MG TAB PEG SCH (21:34)
[2017-06-20] MEDS: HEPARIN SOD (PORCINE) 5000 UNITS/ML VIAL SQ SCH ×3 (05:06→21:15)
[2017-06-20 06:00] VITALS: BP 131/69
[2017-06-20] MEDS: LANSOPRAZOLE SUSPENSION 30 MG/10 ML ORAL SYRINGE (FIRST-LANSOPRAZOLE) GT SCH (09:21)
[2017-06-20] MEDS: NYSTATIN 100,000 UNITS/GM TOPICAL PWD 15 GM TOP SCH ×2 (09:21→20:28)
[2017-06-20] MEDS: rOPINIRole 0.25 MG TAB(REQUIP) PEG SCH ×3 (09:21→20:28)
[2017-06-20] MEDS: DONEPEZIL 5 MG TAB PEG SCH (20:28)
[2017-06-21 06:00] VITALS: BP 107/57
[2017-06-21] MEDS: HEPARIN SOD (PORCINE) 5000 UNITS/ML VIAL SQ SCH (06:42)
[2017-06-21] MEDS: rOPINIRole 0.25 MG TAB(REQUIP) PEG SCH (08:12)
[2017-06-21] MEDS: LANSOPRAZOLE SUSPENSION 30 MG/10 ML ORAL SYRINGE (FIRST-LANSOPRAZOLE) GT SCH (08:12)
[2017-06-21] MEDS: NYSTATIN 100,000 UNITS/GM TOPICAL PWD 15 GM TOP SCH (08:13)
[2017-06-21] MEDS ORDERED: NYST10PW TOP (11:39)
[2017-06-21] MEDS ORDERED: IPRASOL4 NEB (11:39)
[2017-06-21] MEDS ORDERED: AKWASOL OU (11:39)
[2017-06-21] MEDS ORDERED: FIRS3SUS GT (11:39)
[2017-06-21] MEDS ORDERED: MILKSUS PEG (11:39)
[2017-06-21] MEDS ORDERED: REQU1TAB14 PEG (11:39)
[2017-06-21] MEDS ORDERED: MORP10SO SL (11:39)
[2017-06-21] MEDS ORDERED: ONDA4TAB6 PEG (11:39)
[2017-06-21] MEDS ORDERED: ACET65SU PR (11:39)
[2017-06-21] MEDS ORDERED: TRAN1.5D2 TOP (11:39)
[2017-06-21] MEDS ORDERED: ARIC1TAB PEG (11:39)
--- NOTE | 2017-06-21 16:06 | DSES ---
DATE OF ADMISSION: 04/18/2017 DATE OF DISCHARGE: 06/21/2017 SPECIALISTS INVOLVED IN HER CARE: Include: 1. Dr. Dawn. 2. Dr. Lombardi. 3. Dr. Norton. PROCEDURES PERFORMED DURING HER STAY: Included: Placement of a percutaneous endoscopic gastrostomy (PEG) tube by Dr. Dawn on 05/07/2017. DISCHARGE DIAGNOSES: 1. Aspiration pneumonia. 2. Parkinson's dementia. 3. Dysphagia related to Parkinson's disease and progressive dementia. 4. Acute on chronic metabolic encephalopathy. 5. Hypernatremia. 6. Thrombocytopenia. SUMMARY OF HER HOSPITALIZATION: This is a 71-year-old who presented with acute hypoxic respiratory failure, status post aspiration pneumonia, thought possibly related to a non-intentional overdose. She was initially seen by Dr. Paulino and the critical care team, eventually transferred to the hospitalist service. She was seen by speech therapy and thought to have an impaired swallow. Feeding tube was pursued. Feeds were advanced. She was also seen by Dr. Norton during this stay for electrolyte abnormalities and acute renal failure. She improved slowly to what is likely now her baseline and is made halfway care. It was a somewhat prolonged stay based on the need for a local halfway discharge. Followup with [facility] provider. - tube feeding with Jevity 1 Ryne 50 mL an hour with 100 mL extra H2O (water) flush per every six hours - Tylenol suppository as needed - DuoNebs every two hours as needed - artificial tears four times a day as needed - Aricept 5 mg by percutaneous endoscopic gastrostomy (PEG) tube daily - Prevacid 30 mg py PEG tube daily - milk of magnesia as needed - morphine sulfate 0.5 mg every six hours as needed - nystatin powder twice daily - Zofran as needed - Requip 0.5 mg by PEG tube three times a day - scopolamine 1.5 mg topically every 72 hours Discontinue Dulcolax, discontinue clonazepam, discontinue Senokot-S, discontinue previous dose of Aricept, discontinue duloxetine, discontinue mirtazapine, discontinue Requip as previously dosed.
== END 2017-06-21 13:40 | DRG 917 ==
LOC: EDBD 12:18 → M ED 12:18 → M ED INP 16:44 → M ICU 17:22 → M MSPAV 04-19 14:51 → M ICU 04-19 14:52 → M PCU 04-19 16:03 → M MSPAV 04-21 18:44 → M ICU 05-01 06:45 → M MSPAV 05-02 16:49
PROVIDERS: ADMIT Internal Medicine Pulmonary Disease; ATTEND Internal Medicine
PROC: 0DH63UZ Insertion of Feeding Device into Stomach, Percutaneous Approach (ICD-10-PCS; principal; 2017-05-07 11:00)
DX: T42.4X1A Poisoning by benzodiazepines, accidental (unintentional), initial encounter (principal); J69.0 Pneumonitis due to inhalation of food and vomit; J96.01 Acute respiratory failure with hypoxia; G93.41 Metabolic encephalopathy; E46 Unspecified protein-calorie malnutrition; N17.9 Acute kidney failure, unspecified; E87.0 Hyperosmolality and hypernatremia; G31.83 Neurocognitive disorder with Lewy bodies; F02.80 Dementia in other diseases classified elsewhere, unspecified severity, without behavioral disturbance, psychotic disturbance, mood disturbance, and anxiety; D69.6 Thrombocytopenia, unspecified; Z79.899 Other long term (current) drug therapy; Z88.2 Allergy status to sulfonamides; Z88.8 Allergy status to other drugs, medicaments and biological substances

== ENCOUNTER → 2017-06-24 | Outpatient (REF) ==
[~2017-06-24] MED LIST changes: +ACET65SU PR; +AKWASOL OU; +ARIC1TAB PEG; +DONE5TAB17; +DONE5TAB17 PO; +DULC5TAB PO; +DULO1CAP3 PO; +FIRS3SUS GT; +IPRASOL4 NEB; +MILKSUS PEG; +MIRT15TA3; +MIRT15TA3 PO; +MORP10SO SL; +NYST10PW TOP; +ONDA4TAB6 PEG; +PATIENT COMMENT; +REQU1TAB14 PEG; +ROPI0.25; +TRAN1.5D2 TOP
[2017-06-24 09:25] LABS: MEAN CORPUSCULAR HEMOGLOBIN 31.2 pg (27.0-33.0); MEAN CORPUSCULAR HGB CONC 33.5 g/dl (32.0-36.5); MEAN CORPUSCULAR VOLUME 93.1 fl (80.0-96.0); RED CELL DISTRIBUTION WIDTH 14.2 % (11.5-14.5); WHITE BLOOD COUNT 7.2 K/mm3 (4.0-10.0)
[2017-06-24 09:54] LABS: ALBUMIN 2.4 GM/DL (3.2-5.2); ALBUMIN/GLOBULIN RATIO 0.63 (1.00-1.93); ALKALINE PHOSPHATASE 127 U/L (45-117); ALT/SGPT 40 U/L (12-78); ANION GAP 7 MEQ/L (8-16); AST/SGOT 19 U/L (15-37); BILIRUBIN,TOTAL 0.2 MG/DL (0.2-1.0); BLOOD UREA NITROGEN 15 MG/DL (7-18); CARBON DIOXIDE LEVEL 30 MEQ/L (21-32); CHLORIDE LEVEL 103 MEQ/L (98-107); CREATININE FOR GFR 0.26 MG/DL (0.55-1.02); GLOMERULAR FILTRATION RATE > 60.0 (>39); GLUCOSE, FASTING 126 MG/DL (83-110); POTASSIUM SERUM 4.6 MEQ/L (3.5-5.1); SODIUM LEVEL 140 MEQ/L (136-145); TOTAL PROTEIN 6.2 GM/DL (6.4-8.2)
[2017-06-24 10:40] LABS: VITAMIN B12 LEVEL 689 PG/ML (247-911)
== END ==
LOC: SKLAB2 08:09
DX: F02.80 Dementia in other diseases classified elsewhere, unspecified severity, without behavioral disturbance, psychotic disturbance, mood disturbance, and anxiety (principal)

== ENCOUNTER → 2017-08-24 | Outpatient (REF) | payer MEDICARE | LOC: SKLAB2 05:45 | DX: R19.8 Other specified symptoms and signs involving the digestive system and abdomen (principal) ==

== ENCOUNTER → 2017-09-13 | Outpatient (REF) ==
[2017-09-13 08:48] LABS: MEAN CORPUSCULAR HEMOGLOBIN 29.1 pg (27.0-33.0); MEAN CORPUSCULAR HGB CONC 31.8 g/dl (32.0-36.5); MEAN CORPUSCULAR VOLUME 91.5 fl (80.0-96.0); PLATELET COUNT, AUTOMATED 163 10^3/uL (150-450); RED CELL DISTRIBUTION WIDTH 13.5 % (11.5-14.5)
[2017-09-13 09:07] LABS: ALBUMIN 3.1 GM/DL (3.2-5.2); ALBUMIN/GLOBULIN RATIO 0.78 (1.00-1.93); ALKALINE PHOSPHATASE 72 U/L (45-117); ALT/SGPT 23 U/L (12-78); ANION GAP 6 MEQ/L (8-16); AST/SGOT 17 U/L (7-37); BILIRUBIN,TOTAL 0.4 MG/DL (0.2-1.0); BLOOD UREA NITROGEN 15 MG/DL (7-18); CALCIUM LEVEL 8.9 MG/DL (8.8-10.2); CARBON DIOXIDE LEVEL 29 MEQ/L (21-32); CHLORIDE LEVEL 105 MEQ/L (98-107); CREATININE FOR GFR 0.45 MG/DL (0.55-1.02); GLOMERULAR FILTRATION RATE > 60.0 (>39); GLUCOSE, FASTING 131 MG/DL (83-110); POTASSIUM SERUM 4.1 MEQ/L (3.5-5.1); SODIUM LEVEL 140 MEQ/L (136-145); TOTAL PROTEIN 7.1 GM/DL (6.4-8.2)
== END ==
LOC: SKLAB2 07:30
DX: F03.90 Unspecified dementia, unspecified severity, without behavioral disturbance, psychotic disturbance, mood disturbance, and anxiety (principal)

== ENCOUNTER → 2017-09-24 | Outpatient (REF) | payer MEDICARE | LOC: SKLAB2 17:38 | DX: A04.72 Enterocolitis due to Clostridium difficile, not specified as recurrent (principal) ==

== ENCOUNTER → 2017-11-07 | Outpatient (REF) | payer MEDICARE ==
[2017-11-07 15:57] LABS: APPEARANCE, URINE HAZY (CLEAR); BACTERIA, URINE AUTO 1+ (NEGATIVE); BILIRUBIN, URINE AUTO NEGATIVE (NEGATIVE); BLOOD, URINE BLOOD NEGATIVE (NEGATIVE); COLOR, URINE YELLOW (YELLOW); GLUCOSE, URINE (UA) AUTO NEGATIVE (NEGATIVE); KETONE, URINE AUTO NEGATIVE (NEGATIVE); LEUKOCYTE ESTERASE, URINE AUTO TRACE (NEGATIVE); MUCUS, URINE SMALL (NEGATIVE); NITRITE, URINE AUTO NEGATIVE (NEGATIVE); PROTEIN, URINE AUTO NEGATIVE (NEGATIVE); RBC, URINE AUTO 0 /HPF (0-3); SPECIFIC GRAVITY URINE AUTO 1.016 (1.002-1.035); SQUAMOUS EPITHELIAL CELL UR AU 0 /HPF (0-6); UROBILINOGEN, URINE AUTO 0.2 mg/dL (0.0-2.0); WBC, URINE AUTO 2 /HPF (0-3)
== END ==
LOC: M LAB 14:45
DX: R41.82 Altered mental status, unspecified (principal)
CPT/HCPCS: 81001

== ENCOUNTER → 2017-12-13 | Outpatient (REF) | payer MEDICARE ==
[2017-12-13 08:22] LABS: HEMATOCRIT 42.1 % (36.0-47.0); HEMOGLOBIN 13.4 g/dl (12.0-16.0); MEAN CORPUSCULAR HEMOGLOBIN 29.3 pg (27.0-33.0); MEAN CORPUSCULAR HGB CONC 31.8 g/dl (32.0-36.5); MEAN CORPUSCULAR VOLUME 91.9 fl (80.0-96.0); PLATELET COUNT, AUTOMATED 158 10^3/uL (150-450); RED BLOOD COUNT 4.58 10^6/uL (4.00-5.40); RED CELL DISTRIBUTION WIDTH 12.6 % (11.5-14.5)
[2017-12-13 08:56] LABS: ALBUMIN 3.5 GM/DL (3.2-5.2); ALBUMIN/GLOBULIN RATIO 1.06 (1.00-1.93); ALKALINE PHOSPHATASE 84 U/L (45-117); ALT/SGPT 44 U/L (12-78); ANION GAP 6 MEQ/L (8-16); AST/SGOT 22 U/L (7-37); BILIRUBIN,TOTAL 0.4 MG/DL (0.2-1.0); BLOOD UREA NITROGEN 18 MG/DL (7-18); CALCIUM LEVEL 9.4 MG/DL (8.8-10.2); CARBON DIOXIDE LEVEL 31 MEQ/L (21-32); CHLORIDE LEVEL 105 MEQ/L (98-107); CREATININE FOR GFR 0.51 MG/DL (0.55-1.30); GLOMERULAR FILTRATION RATE > 60.0 (>39); GLUCOSE, FASTING 112 MG/DL (70-100); POTASSIUM SERUM 4.2 MEQ/L (3.5-5.1); SODIUM LEVEL 142 MEQ/L (136-145); TOTAL PROTEIN 6.8 GM/DL (6.4-8.2)
== END ==
LOC: SKLAB2 07:30
DX: F03.90 Unspecified dementia, unspecified severity, without behavioral disturbance, psychotic disturbance, mood disturbance, and anxiety (principal); Z93.1 Gastrostomy status
CPT/HCPCS: 80053

== ENCOUNTER → 2018-01-24 | Outpatient (REF) | payer MEDICARE ==
[2018-01-24 19:46] LABS: ALBUMIN 3.6 GM/DL (3.2-5.2); ALKALINE PHOSPHATASE 93 U/L (45-117); ALT/SGPT 52 U/L (12-78); ANION GAP 7 MEQ/L (8-16); AST/SGOT 35 U/L (7-37); BILIRUBIN,TOTAL 0.5 MG/DL (0.2-1.0); BLOOD UREA NITROGEN 24 MG/DL (7-18); CALCIUM LEVEL 9.4 MG/DL (8.8-10.2); CARBON DIOXIDE LEVEL 28 MEQ/L (21-32); CHLORIDE LEVEL 108 MEQ/L (98-107); CREATININE FOR GFR 0.44 MG/DL (0.55-1.30); GLOMERULAR FILTRATION RATE > 60.0 (>39); GLUCOSE, FASTING 99 MG/DL (70-100); POTASSIUM SERUM 4.2 MEQ/L (3.5-5.1); SODIUM LEVEL 143 MEQ/L (136-145); TOTAL PROTEIN 7.2 GM/DL (6.4-8.2)
[2018-01-24 19:49] LABS: HEMATOCRIT 42.7 % (36.0-47.0); HEMOGLOBIN 14.1 g/dl (12.0-15.5); MEAN CORPUSCULAR HEMOGLOBIN 29.8 pg (27.0-33.0); MEAN CORPUSCULAR VOLUME 90.3 fl (80.0-96.0); PLATELET COUNT, AUTOMATED 200 10^3/uL (150-450); RED BLOOD COUNT 4.73 10^6/uL (4.00-5.40); RED CELL DISTRIBUTION WIDTH 12.6 % (11.5-14.5); WHITE BLOOD COUNT 11.4 10^3/uL (4.0-10.0)
== END ==
LOC: SKLAB2 18:29
DX: G20 Parkinson's disease (principal); I10 Essential (primary) hypertension
CPT/HCPCS: 80053

== ENCOUNTER → 2018-01-25 | Outpatient (REF) | payer MEDICARE | LOC: SKLAB2 03:00 | DX: R50.9 Fever, unspecified (principal) | CPT/HCPCS: 87088; 87186 ==

== ENCOUNTER → 2018-02-15 | Outpatient (REF) | payer MEDICARE | LOC: SKLAB2 19:41 | DX: R10.9 Unspecified abdominal pain (principal); M54.9 Dorsalgia, unspecified ==

== ENCOUNTER → 2018-02-15 | Outpatient (REF) | payer MEDICARE ==
[2018-02-15 11:16] LABS: HEMATOCRIT 44.7 % (36.0-47.0); HEMOGLOBIN 14.2 g/dl (12.0-15.5); MEAN CORPUSCULAR HEMOGLOBIN 29.8 pg (27.0-33.0); MEAN CORPUSCULAR HGB CONC 31.8 g/dl (32.0-36.5); MEAN CORPUSCULAR VOLUME 93.9 fl (80.0-96.0); PLATELET COUNT, AUTOMATED 148 10^3/uL (150-450); RED BLOOD COUNT 4.76 10^6/uL (4.00-5.40); RED CELL DISTRIBUTION WIDTH 12.8 % (11.5-14.5); WHITE BLOOD COUNT 5.1 10^3/uL (4.0-10.0)
[2018-02-15 11:42] LABS: ANION GAP 6 MEQ/L (8-16); BLOOD UREA NITROGEN 16 MG/DL (7-18); CALCIUM LEVEL 9.6 MG/DL (8.8-10.2); CARBON DIOXIDE LEVEL 30 MEQ/L (21-32); CHLORIDE LEVEL 107 MEQ/L (98-107); CREATININE FOR GFR 0.53 MG/DL (0.55-1.30); GLOMERULAR FILTRATION RATE > 60.0 (>39); GLUCOSE, FASTING 89 MG/DL (70-100); POTASSIUM SERUM 4.4 MEQ/L (3.5-5.1); SODIUM LEVEL 143 MEQ/L (136-145)
[2018-02-15 19:18] LABS: AMORPHOUS SEDIMENT LARGE (NEGATIVE); APPEARANCE, URINE CLOUDY (CLEAR); BACTERIA, URINE AUTO NEGATIVE (NEGATIVE); BILIRUBIN, URINE AUTO NEGATIVE (NEGATIVE); BLOOD, URINE BLOOD NEGATIVE (NEGATIVE); COLOR, URINE YELLOW (YELLOW); GLUCOSE, URINE (UA) AUTO NEGATIVE (NEGATIVE); KETONE, URINE AUTO NEGATIVE (NEGATIVE); LEUKOCYTE ESTERASE, URINE AUTO TRACE (NEGATIVE); NITRITE, URINE AUTO NEGATIVE (NEGATIVE); PROTEIN, URINE AUTO NEGATIVE (NEGATIVE); RBC, URINE AUTO 2 /HPF (0-3); SPECIFIC GRAVITY URINE AUTO 1.003 (1.002-1.035); SQUAMOUS EPITHELIAL CELL UR AU 0 /HPF (0-6); UROBILINOGEN, URINE AUTO 0.2 mg/dL (0.0-2.0); WBC, URINE AUTO 1 /HPF (0-3)
== END ==
LOC: SKLAB2 09:55
DX: R10.9 Unspecified abdominal pain (principal); M54.9 Dorsalgia, unspecified
CPT/HCPCS: 80048

== ENCOUNTER → 2018-03-14 | Outpatient (REF) | payer MEDICARE ==
[2018-03-14 08:53] LABS: HEMATOCRIT 42.4 % (36.0-47.0); HEMOGLOBIN 13.6 g/dl (12.0-15.5); MEAN CORPUSCULAR HEMOGLOBIN 29.6 pg (27.0-33.0); MEAN CORPUSCULAR HGB CONC 32.1 g/dl (32.0-36.5); MEAN CORPUSCULAR VOLUME 92.4 fl (80.0-96.0); PLATELET COUNT, AUTOMATED 159 10^3/uL (150-450); RED BLOOD COUNT 4.59 10^6/uL (4.00-5.40); RED CELL DISTRIBUTION WIDTH 12.9 % (11.5-14.5); WHITE BLOOD COUNT 5.5 10^3/uL (4.0-10.0)
[2018-03-14 09:23] LABS: ALBUMIN 3.5 GM/DL (3.2-5.2); ALBUMIN/GLOBULIN RATIO 0.97 (1.00-1.93); ALKALINE PHOSPHATASE 92 U/L (45-117); ALT/SGPT 46 U/L (12-78); ANION GAP 7 MEQ/L (8-16); AST/SGOT 30 U/L (7-37); BILIRUBIN,TOTAL 0.5 MG/DL (0.2-1.0); BLOOD UREA NITROGEN 16 MG/DL (7-18); CALCIUM LEVEL 9.2 MG/DL (8.8-10.2); CARBON DIOXIDE LEVEL 29 MEQ/L (21-32); CHLORIDE LEVEL 106 MEQ/L (98-107); CREATININE FOR GFR 0.37 MG/DL (0.55-1.30); GLOMERULAR FILTRATION RATE > 60.0 (>39); GLUCOSE, FASTING 88 MG/DL (70-100); SODIUM LEVEL 142 MEQ/L (136-145); TOTAL PROTEIN 7.1 GM/DL (6.4-8.2)
== END ==
LOC: SKLAB2 07:30
DX: F03.90 Unspecified dementia, unspecified severity, without behavioral disturbance, psychotic disturbance, mood disturbance, and anxiety (principal)
CPT/HCPCS: 80053

== ENCOUNTER → 2018-09-12 | Outpatient (REF) | payer MEDICARE ==
[2018-09-12 08:22] LABS: HEMOGLOBIN 12.1 g/dl (12.0-15.5); MEAN CORPUSCULAR HGB CONC 31.8 g/dl (32.0-36.5); MEAN CORPUSCULAR VOLUME 94.1 fl (80.0-96.0); PLATELET COUNT, AUTOMATED 159 10^3/uL (150-450); RED BLOOD COUNT 4.04 10^6/uL (4.00-5.40); RED CELL DISTRIBUTION WIDTH 12.2 % (11.5-14.5); WHITE BLOOD COUNT 5.4 10^3/uL (4.0-10.0)
[2018-09-12 08:52] LABS: ALBUMIN 2.9 GM/DL (3.2-5.2); ALBUMIN/GLOBULIN RATIO 0.74 (1.00-1.93); ALKALINE PHOSPHATASE 84 U/L (45-117); ALT/SGPT 23 U/L (12-78); ANION GAP 6 MEQ/L (8-16); AST/SGOT 21 U/L (7-37); BILIRUBIN,TOTAL 0.4 MG/DL (0.2-1.0); BLOOD UREA NITROGEN 23 MG/DL (7-18); CALCIUM LEVEL 9.4 MG/DL (8.8-10.2); CARBON DIOXIDE LEVEL 30 MEQ/L (21-32); CHLORIDE LEVEL 105 MEQ/L (98-107); CREATININE FOR GFR 0.39 MG/DL (0.55-1.30); GLOMERULAR FILTRATION RATE > 60.0 (>39); GLUCOSE, FASTING 83 MG/DL (70-100); POTASSIUM SERUM 3.9 MEQ/L (3.5-5.1); SODIUM LEVEL 141 MEQ/L (136-145); TOTAL PROTEIN 6.8 GM/DL (6.4-8.2)
== END ==
LOC: SKLAB2 08:00
DX: F03.90 Unspecified dementia, unspecified severity, without behavioral disturbance, psychotic disturbance, mood disturbance, and anxiety (principal); Z93.1 Gastrostomy status
CPT/HCPCS: 80053

== ENCOUNTER → 2018-12-12 | Outpatient (REF) | payer MEDICARE ==
[~2018-12-12] MED LIST changes: -CLON0.5T PO; +CLON0.5T8 PO; -DONE5TAB17; -DONE5TAB17 PO; +DONE5TAB64; +DONE5TAB64 PO; +IPRA0.00 NEB; -IPRASOL4 NEB; +MILK120011 PEG; -MILKSUS PEG; -ROPI0.25; -ROPI0.25 PO; +ROPI0.253; +ROPI0.253 PO
[2018-12-12 08:56] LABS: HEMATOCRIT 41.5 % (36.0-47.0); HEMOGLOBIN 12.9 g/dl (12.0-15.5); MEAN CORPUSCULAR HEMOGLOBIN 28.9 pg (27.0-33.0); MEAN CORPUSCULAR HGB CONC 31.1 g/dl (32.0-36.5); PLATELET COUNT, AUTOMATED 170 10^3/uL (150-450); RED BLOOD COUNT 4.46 10^6/uL (4.00-5.40); WHITE BLOOD COUNT 6.2 10^3/uL (4.0-10.0)
[2018-12-12 09:23] LABS: ALBUMIN 3.2 GM/DL (3.2-5.2); ALT/SGPT 18 U/L (12-78); BILIRUBIN,TOTAL 0.4 MG/DL (0.2-1.0); BLOOD UREA NITROGEN 19 MG/DL (7-18); CALCIUM LEVEL 9.1 MG/DL (8.8-10.2); CARBON DIOXIDE LEVEL 31 MEQ/L (21-32); CHLORIDE LEVEL 102 MEQ/L (98-107); CREATININE FOR GFR 0.43 MG/DL (0.55-1.30); GLOMERULAR FILTRATION RATE > 60.0 (>39); GLUCOSE, FASTING 85 MG/DL (70-100); POTASSIUM SERUM 4.3 MEQ/L (3.5-5.1); SODIUM LEVEL 140 MEQ/L (136-145); TOTAL PROTEIN 6.5 GM/DL (6.4-8.2)
== END ==
LOC: SKLAB2 07:30
DX: F03.90 Unspecified dementia, unspecified severity, without behavioral disturbance, psychotic disturbance, mood disturbance, and anxiety (principal); Z93.1 Gastrostomy status

== ENCOUNTER → 2019-01-01 | Outpatient (REF) | payer MEDICARE ==
[2019-01-01 12:19] LABS: BASO % 0.4 % (0.0-1.0); EOS # 0.1 10^3/uL (0.0-0.50); HEMATOCRIT 43.8 % (36.0-47.0); HEMOGLOBIN 13.8 g/dl (12.0-15.5); LYMPH # 1.6 10^3/uL (1.5-4.5); LYMPH % 19.2 % (24.0-44.0); MEAN CORPUSCULAR HEMOGLOBIN 29.6 pg (27.0-33.0); MEAN CORPUSCULAR HGB CONC 31.5 g/dl (32.0-36.5); MONO # 0.5 10^3/uL (0.0-0.8); MONO % 5.7 % (0.0-5.0); NEUTROPHILS % 73.5 % (36.0-66.0); PLATELET COUNT, AUTOMATED 183 10^3/uL (150-450); RED BLOOD COUNT 4.66 10^6/uL (4.00-5.40); WHITE BLOOD COUNT 8.1 10^3/uL (4.0-10.0)
== END ==
LOC: SKLAB2 11:42
DX: D64.9 Anemia, unspecified (principal)

== ENCOUNTER → 2019-01-02 | Outpatient (REF) | payer MEDICARE ==
[2019-01-02 08:13] LABS: BASO % 0.4 % (0.0-1.0); EOS # 0.1 10^3/uL (0.0-0.50); EOS % 2.4 % (0.0-3.0); HEMATOCRIT 41.1 % (36.0-47.0); LYMPH # 1.9 10^3/uL (1.5-4.5); LYMPH % 34.7 % (24.0-44.0); MEAN CORPUSCULAR HEMOGLOBIN 29.7 pg (27.0-33.0); MEAN CORPUSCULAR HGB CONC 31.6 g/dl (32.0-36.5); MEAN CORPUSCULAR VOLUME 93.8 fl (80.0-96.0); MONO # 0.4 10^3/uL (0.0-0.8); MONO % 7.3 % (0.0-5.0); NEUTROPHILS % 54.8 % (36.0-66.0); PLATELET COUNT, AUTOMATED 170 10^3/uL (150-450); RED BLOOD COUNT 4.38 10^6/uL (4.00-5.40); WHITE BLOOD COUNT 5.5 10^3/uL (4.0-10.0)
== END ==
LOC: SKLAB2 07:08
DX: R79.89 Other specified abnormal findings of blood chemistry (principal)

== ENCOUNTER → 2019-01-09 | Outpatient (REF) | payer MEDICARE ==
[~2019-01-09] MED LIST changes: -ASPI1TAB PO; +ASPI81TA26 PO; -DULO30CA PO; +DULO30CA9 PO; +NYST-15 TOP; -NYST10PW TOP; +SCOP1PAT2 TOP; +SENN1TAB41 PO; -SENN8.6T7 PO; -TRAN1.5D2 TOP
[2019-01-09 07:43] LABS: HEMATOCRIT 42.4 % (36.0-47.0); HEMOGLOBIN 13.5 g/dl (12.0-15.5); MEAN CORPUSCULAR HEMOGLOBIN 29.2 pg (27.0-33.0); MEAN CORPUSCULAR HGB CONC 31.8 g/dl (32.0-36.5); MEAN CORPUSCULAR VOLUME 91.8 fl (80.0-96.0); PLATELET COUNT, AUTOMATED 184 10^3/uL (150-450); RED BLOOD COUNT 4.62 10^6/uL (4.00-5.40)
== END ==
LOC: SKLAB2 07:30
DX: K62.5 Hemorrhage of anus and rectum (principal)

== ENCOUNTER → 2019-01-24 | Outpatient (REF) | payer MEDICARE ==
[2019-01-24 10:32] LABS: HEMATOCRIT 45.2 % (36.0-47.0); MEAN CORPUSCULAR HEMOGLOBIN 29.6 pg (27.0-33.0); MEAN CORPUSCULAR VOLUME 95.6 fl (80.0-96.0); PLATELET COUNT, AUTOMATED 171 10^3/uL (150-450); RED BLOOD COUNT 4.73 10^6/uL (4.00-5.40); WHITE BLOOD COUNT 7.1 10^3/uL (4.0-10.0)
== END ==
LOC: SKLAB2 09:51
DX: K62.5 Hemorrhage of anus and rectum (principal); R19.8 Other specified symptoms and signs involving the digestive system and abdomen; Z12.12 Encounter for screening for malignant neoplasm of rectum

== ENCOUNTER → 2019-01-25 | Outpatient (REF) | payer MEDICARE ==
[2019-01-25 07:11] LABS: HEMATOCRIT 40.4 % (36.0-47.0); HEMOGLOBIN 12.7 g/dl (12.0-15.5); MEAN CORPUSCULAR HGB CONC 31.4 g/dl (32.0-36.5); MEAN CORPUSCULAR VOLUME 95.5 fl (80.0-96.0); PLATELET COUNT, AUTOMATED 152 10^3/uL (150-450); RED BLOOD COUNT 4.23 10^6/uL (4.00-5.40)
== END ==
LOC: SKLAB2 07:30
DX: K62.5 Hemorrhage of anus and rectum (principal)

== ENCOUNTER → 2019-01-25 | Outpatient (REF) | payer MEDICARE | LOC: SKLAB2 13:48 | DX: K62.5 Hemorrhage of anus and rectum (principal) ==

== ENCOUNTER → 2019-01-26 | Outpatient (REF) | payer MEDICARE ==
[2019-01-26 08:25] LABS: HEMOGLOBIN 12.9 g/dl (12.0-15.5); MEAN CORPUSCULAR HEMOGLOBIN 29.7 pg (27.0-33.0); MEAN CORPUSCULAR HGB CONC 31.5 g/dl (32.0-36.5); MEAN CORPUSCULAR VOLUME 94.5 fl (80.0-96.0); PLATELET COUNT, AUTOMATED 171 10^3/uL (150-450); RED BLOOD COUNT 4.34 10^6/uL (4.00-5.40); WHITE BLOOD COUNT 4.9 10^3/uL (4.0-10.0)
== END ==
LOC: SKLAB2 07:30
DX: K62.5 Hemorrhage of anus and rectum (principal)

== ENCOUNTER → 2019-02-12 | Outpatient (REF) | payer MEDICARE ==
[2019-02-13 07:46] LABS: HEMATOCRIT 41.9 % (36.0-47.0); MEAN CORPUSCULAR HEMOGLOBIN 30.2 pg (27.0-33.0); MEAN CORPUSCULAR VOLUME 97.2 fl (80.0-96.0); PLATELET COUNT, AUTOMATED 152 10^3/uL (150-450); RED BLOOD COUNT 4.31 10^6/uL (4.00-5.40); WHITE BLOOD COUNT 5.9 10^3/uL (4.0-10.0)
== END ==
LOC: SKLAB2 11:37
DX: K62.5 Hemorrhage of anus and rectum (principal)

== ENCOUNTER → 2019-02-13 | Outpatient (REF) | payer MEDICARE ==
[2019-02-12 12:16] LABS: HEMATOCRIT 43.7 % (36.0-47.0); HEMOGLOBIN 13.8 g/dl (12.0-15.5); MEAN CORPUSCULAR HEMOGLOBIN 30.1 pg (27.0-33.0); MEAN CORPUSCULAR HGB CONC 31.6 g/dl (32.0-36.5); MEAN CORPUSCULAR VOLUME 95.2 fl (80.0-96.0); PLATELET COUNT, AUTOMATED 177 10^3/uL (150-450); RED BLOOD COUNT 4.59 10^6/uL (4.00-5.40); WHITE BLOOD COUNT 6.8 10^3/uL (4.0-10.0)
== END ==
LOC: SKLAB2 10:33
DX: G20 Parkinson's disease (principal); J44.9 Chronic obstructive pulmonary disease, unspecified; F32.9 Major depressive disorder, single episode, unspecified; Z79.899 Other long term (current) drug therapy

== ENCOUNTER 2019-02-14 21:07 | Emergency (ER) | payer MEDICARE ==
[2019-02-14] MEDS ORDERED: READI-CAT 2 PO ONE (21:45)
[2019-02-14] MEDS ORDERED: GASTROGRAFIN SOLUTION 30ML PO SCH (22:45)
[2019-02-14] MEDS ORDERED: GASTROGRAFIN SOLUTION 30ML (Q9963) As Ordered ONE (22:57)
--- NOTE | 2019-02-14 23:39 | REPVR ---
EXAM: CT Abdomen and Pelvis Without Contrast EXAM DATE/TIME: 02/14/2019 10:06 PM CLINICAL HISTORY: 73 years old, female; Signs and symptoms; Other: Evaluate feeding tube; Additional info: Eval feeding tube replacement TECHNIQUE: Imaging protocol: Axial computed tomography images of the abdomen and pelvis without contrast. Coronal and sagittal reformatted images were created and reviewed. Radiation optimization: All CT scans at this facility use at least one of these dose optimization techniques: automated exposure control; mA and/or kV adjustment per patient size (includes targeted exams where dose is matched to clinical indication); or iterative reconstruction. COMPARISON: No relevant prior studies available. FINDINGS: Tubes, catheters and devices: G-tube in the stomach. No leak or free air. Lungs: Slight interstitial coarsening with mild bibasilar fibro-atelectatic change which is greatest in the left lower lobe and right middle lobe. ABDOMEN: Liver: The liver at mid clavicular line measures 14.4 cm. Gallbladder and bile ducts: The gallbladder is contracted with no stones. Pancreas: Multicystic lesion of the pancreatic body/tail measuring 2.2 x 1.7 x 2.0 cm which appears to be pancreatic. Spleen: Normal. No splenomegaly. Adrenals: Normal. No mass. Kidneys and ureters: Normal. No hydronephrosis. Stomach and bowel: Mild distention of the rectum with stool measuring 7.5 cm with some mild tortuosity of the rectosigmoid. Appendix: There are no changes of appendicitis. A normal appendix is not seen. PELVIS: Bladder: Unremarkable as visualized. Reproductive: Unremarkable as visualized. ABDOMEN and PELVIS: Intraperitoneal space: See Tubes, Catheters And Devices Finding. Bones/joints: Decreased height of L4 and mild wedge configuration of T12 which appear to be chronic. Soft tissues: Unremarkable. Vasculature: There is mild calcification of the abdominal aorta with extension into the iliac arteries. Lymph nodes: Normal. No enlarged lymph nodes. IMPRESSION: 1. G-tube in the stomach injected contrast and no leak or free air. 2. Slight pulmonary interstitial coarsening with mild bibasilar fibro-atelectatic change, greatest in the left lower lobe and right middle lobe. 3. Multicystic lesion of the pancreatic body/tail measuring 2.2 x 1.7 x 2.0 cm just a possible cystic neoplasm of the pancreas. 4. Mild stool distention of the rectum which may reflect early impaction. Electronically signed by: Mando Bonilla On 02/14/2019 23:39:04 PM
[2019-02-14 23:40] VITALS: BP 166/77
--- NOTE | 2019-02-21 13:11 | ED PDOC ---
Post-Departure Follow-Up dr seals faxed formal report of ct abd/p for fu Yvette Macedo MD February 21, 2019 13:11
== END 2019-02-15 00:23 | disposition home or self-care (01) ==
LOC: M ED 21:07
DX: K94.23 Gastrostomy malfunction (principal); K86.2 Cyst of pancreas; F03.90 Unspecified dementia, unspecified severity, without behavioral disturbance, psychotic disturbance, mood disturbance, and anxiety; G20 Parkinson's disease; F33.9 Major depressive disorder, recurrent, unspecified; F41.9 Anxiety disorder, unspecified; M79.7 Fibromyalgia; Z79.899 Other long term (current) drug therapy; Z88.1 Allergy status to other antibiotic agents; Z88.2 Allergy status to sulfonamides; Z88.8 Allergy status to other drugs, medicaments and biological substances; Z87.891 Personal history of nicotine dependence

== ENCOUNTER → 2019-03-13 | Outpatient (REF) | payer MEDICARE ==
[2019-03-13 07:20] LABS: HEMATOCRIT 39.9 % (36.0-47.0); HEMOGLOBIN 12.7 g/dl (12.0-15.5); MEAN CORPUSCULAR HEMOGLOBIN 29.8 pg (27.0-33.0); MEAN CORPUSCULAR HGB CONC 31.8 g/dl (32.0-36.5); MEAN CORPUSCULAR VOLUME 93.7 fl (80.0-96.0); PLATELET COUNT, AUTOMATED 187 10^3/uL (150-450); RED BLOOD COUNT 4.26 10^6/uL (4.00-5.40); WHITE BLOOD COUNT 5.1 10^3/uL (4.0-10.0)
[2019-03-13 07:42] LABS: ALBUMIN 3.1 GM/DL (3.2-5.2); ALT/SGPT 22 U/L (12-78); BILIRUBIN,TOTAL 0.4 MG/DL (0.2-1.0); BLOOD UREA NITROGEN 21 MG/DL (7-18); CALCIUM LEVEL 9.4 MG/DL (8.8-10.2); CARBON DIOXIDE LEVEL 30 MEQ/L (21-32); CHLORIDE LEVEL 105 MEQ/L (98-107); CREATININE FOR GFR 0.52 MG/DL (0.55-1.30); GLOMERULAR FILTRATION RATE > 60.0 (>39); GLUCOSE, FASTING 85 MG/DL (70-100); POTASSIUM SERUM 4.1 MEQ/L (3.5-5.1); SODIUM LEVEL 142 MEQ/L (136-145); TOTAL PROTEIN 7.1 GM/DL (6.4-8.2)
== END ==
LOC: SKLAB2 07:00
DX: F03.90 Unspecified dementia, unspecified severity, without behavioral disturbance, psychotic disturbance, mood disturbance, and anxiety (principal); Z93.1 Gastrostomy status

== ENCOUNTER → 2019-04-17 | Outpatient (REF) | payer MEDICARE ==
[~2019-04-17] MED LIST changes: -DULO1CAP3 PO; +DULO1CAP6 PO
[2019-04-17 11:10] LABS: HEMATOCRIT 43.2 % (36.0-47.0); HEMOGLOBIN 13.5 g/dl (12.0-15.5); MEAN CORPUSCULAR HEMOGLOBIN 30.2 pg (27.0-33.0); MEAN CORPUSCULAR HGB CONC 31.3 g/dl (32.0-36.5); MEAN CORPUSCULAR VOLUME 96.6 fl (80.0-96.0); PLATELET COUNT, AUTOMATED 177 10^3/uL (150-450); RED BLOOD COUNT 4.47 10^6/uL (4.00-5.40); WHITE BLOOD COUNT 7.7 10^3/uL (4.0-10.0)
== END ==
LOC: SKLAB2 10:34
DX: K62.5 Hemorrhage of anus and rectum (principal)

== ENCOUNTER → 2019-06-12 | Outpatient (REF) | payer MEDICARE ==
[~2019-06-12] MED LIST changes: +CLON0.5T2 PO; -CLON0.5T8 PO
[2019-06-12 07:59] LABS: HEMOGLOBIN 13.6 g/dl (12.0-15.5); MEAN CORPUSCULAR HGB CONC 31.6 g/dl (32.0-36.5); MEAN CORPUSCULAR VOLUME 94.7 fl (80.0-96.0); PLATELET COUNT, AUTOMATED 215 10^3/uL (150-450); RED BLOOD COUNT 4.54 10^6/uL (4.00-5.40); WHITE BLOOD COUNT 5.9 10^3/uL (4.0-10.0)
[2019-06-12 08:20] LABS: ALBUMIN 3.2 GM/DL (3.2-5.2); ALT/SGPT 22 U/L (12-78); BILIRUBIN,TOTAL 0.3 MG/DL (0.2-1.0); BLOOD UREA NITROGEN 19 MG/DL (7-18); CALCIUM LEVEL 9.3 MG/DL (8.8-10.2); CARBON DIOXIDE LEVEL 31 MEQ/L (21-32); CHLORIDE LEVEL 100 MEQ/L (98-107); CREATININE FOR GFR 0.49 MG/DL (0.55-1.30); GLOMERULAR FILTRATION RATE > 60.0 (>39); GLUCOSE, FASTING 88 MG/DL (70-100); POTASSIUM SERUM 4.4 MEQ/L (3.5-5.1); SODIUM LEVEL 140 MEQ/L (136-145); TOTAL PROTEIN 6.9 GM/DL (6.4-8.2)
== END ==
LOC: SKLAB2 07:00
DX: F03.90 Unspecified dementia, unspecified severity, without behavioral disturbance, psychotic disturbance, mood disturbance, and anxiety (principal); Z93.1 Gastrostomy status

== ENCOUNTER → 2019-08-30 | Outpatient (REF) | payer MEDICARE, MEDICAID ==
[2019-08-30 08:01] LABS: HEMATOCRIT 44.8 % (36.0-47.0); HEMOGLOBIN 13.7 g/dl (12.0-15.5); MEAN CORPUSCULAR HEMOGLOBIN 29.5 pg (27.0-33.0); MEAN CORPUSCULAR HGB CONC 30.6 g/dl (32.0-36.5); MEAN CORPUSCULAR VOLUME 96.6 fl (80.0-96.0); PLATELET COUNT, AUTOMATED 168 10^3/uL (150-450); RED BLOOD COUNT 4.64 10^6/uL (4.00-5.40); WHITE BLOOD COUNT 10.3 10^3/uL (4.0-10.0)
[2019-08-30 08:27] LABS: ALBUMIN 2.7 GM/DL (3.2-5.2); ALT/SGPT 44 U/L (12-78); BILIRUBIN,TOTAL 0.4 MG/DL (0.2-1.0); BLOOD UREA NITROGEN 29 MG/DL (7-18); CARBON DIOXIDE LEVEL 33 MEQ/L (21-32); CHLORIDE LEVEL 114 MEQ/L (98-107); CREATININE FOR GFR 0.61 MG/DL (0.55-1.30); GLOMERULAR FILTRATION RATE > 60.0 (>39); GLUCOSE, FASTING 126 MG/DL (70-100); POTASSIUM SERUM 3.7 MEQ/L (3.5-5.1); SODIUM LEVEL 149 MEQ/L (136-145); TOTAL PROTEIN 7.4 GM/DL (6.4-8.2)
--- NOTE | 2019-08-30 15:56 | REP ---
Clinical: Chest pain. Congestion. Comparison: 05/27/2017. Findings: Mediastinum and cardiac silhouette are stable within normal limits. Lung martinez demonstrate diffuse chronic interstitial changes. The patient's gastrostomy tube overlies the right lung base. Superimposed lower lobe infiltrates/atelectasis suspected. No effusion. No pneumothorax. Skeletal structures demonstrate osteopenia and degenerative changes. Impression: Findings suggest chronic changes with superimposed basilar atelectasis. Electronically Signed by Heriberto Do MD 08/30/2019 03:47 P
[2019-08-30 20:00] LABS: APPEARANCE, URINE MANUAL HAZY (CLEAR); COLOR, URINE MANUAL YELLOW (YELLOW); PROTEIN, URINE MANUAL 1+ mg/dL (NEGATIVE); SPECIFIC GRAVITY,URINE MANUAL 1.015 (1.002-1.035)
[2019-08-30 20:01] LABS: BILIRUBIN, URINE MANUAL NEGATIVE (NEGATIVE); BLOOD URINE MANUAL POSITIVE (NEGATIVE); GLUCOSE, URINE (UA) MANUAL 2+(250 MG/DL) mg/dL (NEGATIVE); KETONE, URINE MANUAL NEGATIVE (NEGATIVE); LEUKOCYTE ESTERASE, URINE MAN POSITIVE (NEGATIVE); NITRITE, URINE MANUAL POSITIVE (NEGATIVE); UROBILINOGEN, URINE MANUAL 1 MG mg/dl (NORMAL)
[2019-08-30 20:17] LABS: INFLUENZA A AMPLIFICATION NEGATIVE (NEGATIVE); INFLUENZA B AMPLIFICATION NEGATIVE (NEGATIVE)
[2019-08-30 20:29] LABS: BACTERIA, URINE LARGE AMOUNT; HYALINE CAST, URINE NONE SEEN /lpf (0-1); RBC, URINE NONE SEEN /hpf (0-3); SQUAMOUS EPITHELIAL CELL URINE NONE SEEN /hpf (SMALL AMT)
== END ==
LOC: SKLAB2 15:55
PROVIDERS: ATTEND Family Medicine
DX: Z79.899 Other long term (current) drug therapy (principal)

== ENCOUNTER → 2019-09-05 | Outpatient (REF) | payer MEDICARE, MEDICAID ==
[2019-09-06 01:01] LABS: APPEARANCE, URINE HAZY (CLEAR); BACTERIA, URINE AUTO NEGATIVE (NEGATIVE); BILIRUBIN, URINE AUTO NEGATIVE (NEGATIVE); BLOOD, URINE BLOOD NEGATIVE (NEGATIVE); COLOR, URINE YELLOW (YELLOW); GLUCOSE, URINE (UA) AUTO 1+ mg/dL (NEGATIVE); KETONE, URINE AUTO NEGATIVE (NEGATIVE); LEUKOCYTE ESTERASE, URINE AUTO NEGATIVE (NEGATIVE); MUCUS, URINE SMALL (NEGATIVE); NITRITE, URINE AUTO NEGATIVE (NEGATIVE); PROTEIN, URINE AUTO NEGATIVE (NEGATIVE); RBC, URINE AUTO 3 /HPF (0-3); SPECIFIC GRAVITY URINE AUTO 1.024 (1.002-1.035); SQUAMOUS EPITHELIAL CELL UR AU 0 /HPF (0-6); TRANSITIONAL EPITHELIAL AUTO <1 /HPF; UROBILINOGEN, URINE AUTO 0.2 mg/dL (0.0-2.0); WBC, URINE AUTO 1 /HPF (0-3)
== END ==
LOC: SKLAB2 15:18
PROVIDERS: ATTEND Family Medicine
DX: R50.9 Fever, unspecified (principal)

== ENCOUNTER → 2019-09-10 | Outpatient (REF) | payer MEDICARE, MEDICAID ==
[2019-09-10 13:19] LABS: BASO % 0.3 % (0.0-1.0); EOS % 0.2 % (0.0-3.0); HEMATOCRIT 44.2 % (36.0-47.0); HEMOGLOBIN 13.9 g/dl (12.0-15.5); LYMPH # 1.6 10^3/uL (1.5-5.0); LYMPH % 10.8 % (24.0-44.0); MEAN CORPUSCULAR HEMOGLOBIN 30.6 pg (27.0-33.0); MEAN CORPUSCULAR HGB CONC 31.4 g/dl (32.0-36.5); MEAN CORPUSCULAR VOLUME 97.4 fl (80.0-96.0); MONO # 0.6 10^3/uL (0.0-0.8); MONO % 3.9 % (0.0-5.0); NEUTROPHILS # 12.3 10^3/uL (1.5-8.5); NEUTROPHILS % 84.5 % (36.0-66.0); PLATELET COUNT, AUTOMATED 291 10^3/uL (150-450); RED BLOOD COUNT 4.54 10^6/uL (4.00-5.40); WHITE BLOOD COUNT 14.6 10^3/uL (4.0-10.0)
--- NOTE | 2019-09-10 13:36 | REP ---
AP PORTABLE CHEST: 09/10/2019. COMPARISON: 08/30/2019. CLINICAL HISTORY: Congestion. FINDINGS: AP upright chest shows the lungs adequately inflated. There is some minor bibasilar atelectatic change which is much improved since the previous study. I do not see pleural effusion or dense consolidation with air bronchograms. Heart is not enlarged. The aorta is mildly tortuous and calcified at the arch. There is pulmonary artery hypertension and some underlying mild interstitial fibrotic change. No vascular redistribution or edema. Bones are demineralized. IMPRESSION: 1. Adequate inflation improvement of bibasilar atelectatic changes noted on the previous study on 08/30/2019. There is no dense consolidation, effusion, cardiomegaly, or edema. 2. Bones demineralized. Degenerative changes of the spine. Electronically Signed by Jose Luis Ray MD 09/10/2019 05:15 P
[2019-09-10 13:40] LABS: BLOOD UREA NITROGEN 24 MG/DL (7-18); CALCIUM LEVEL 9.3 MG/DL (8.8-10.2); CARBON DIOXIDE LEVEL 30 MEQ/L (21-32); CHLORIDE LEVEL 106 MEQ/L (98-107); CREATININE FOR GFR 0.57 MG/DL (0.55-1.30); GLOMERULAR FILTRATION RATE > 60.0 (>39); GLUCOSE, FASTING 89 MG/DL (70-100); POTASSIUM SERUM 4.5 MEQ/L (3.5-5.1); SODIUM LEVEL 144 MEQ/L (136-145)
== END ==
LOC: SKLAB2 11:43
PROVIDERS: ATTEND Family Medicine
DX: R50.9 Fever, unspecified (principal); R09.81 Nasal congestion

== ENCOUNTER → 2019-09-11 | Outpatient (REF) | payer MEDICARE, OTHER, MEDICAID ==
[2019-09-11 08:18] LABS: HEMATOCRIT 42.4 % (36.0-47.0); MEAN CORPUSCULAR HEMOGLOBIN 29.5 pg (27.0-33.0); MEAN CORPUSCULAR HGB CONC 30.7 g/dl (32.0-36.5); MEAN CORPUSCULAR VOLUME 96.4 fl (80.0-96.0); PLATELET COUNT, AUTOMATED 252 10^3/uL (150-450); WHITE BLOOD COUNT 12.2 10^3/uL (4.0-10.0)
[2019-09-11 08:52] LABS: ALBUMIN 2.8 GM/DL (3.2-5.2); ALT/SGPT 35 U/L (12-78); BILIRUBIN,TOTAL 0.5 MG/DL (0.2-1.0); BLOOD UREA NITROGEN 23 MG/DL (7-18); CALCIUM LEVEL 9.1 MG/DL (8.8-10.2); CARBON DIOXIDE LEVEL 31 MEQ/L (21-32); CHLORIDE LEVEL 109 MEQ/L (98-107); GLOMERULAR FILTRATION RATE > 60.0 (>39); GLUCOSE, FASTING 115 MG/DL (70-100); POTASSIUM SERUM 4.6 MEQ/L (3.5-5.1); SODIUM LEVEL 145 MEQ/L (136-145); TOTAL PROTEIN 6.7 GM/DL (6.4-8.2)
== END ==
LOC: SKLAB2 07:00
PROVIDERS: ATTEND Family Medicine
DX: F03.90 Unspecified dementia, unspecified severity, without behavioral disturbance, psychotic disturbance, mood disturbance, and anxiety (principal); Z93.1 Gastrostomy status